=== PATIENT | female | born 1945 | race Caucasian/White ===

== ENCOUNTER 2020-06-14 12:14 | Outpatient (REF) | payer MEDICARE, SELFPAY ==
--- NOTE | 2020-06-14 12:21 | MM_ITS ---
EXAMINATION: MM DIAGNOSTIC DIGITAL BREAST TOMOSYNTHESIS, BILATERAL CLINICAL INFORMATION: Right lumpectomy for invasive ductal carcinoma 2017. Due for yearly. COMPARISON: Mammography: 01/26/2020, 09/16/2019, 10/13/2018, 06/10/2018, 06/17/2017, 03/30/2016, 02/16/2015, 12/25/2013 TECHNIQUE: Digital breast tomosynthesis is performed in both the craniocaudal and mediolateral oblique views along with computer-aided detection (CAD). Synthesized 2D images are generated from the tomosynthesis. FINDINGS: There are scattered areas of fibroglandular density (ACR BI-RADS breast composition Category b). Breast parenchymal pattern is similar to prior study. There are post therapy changes on right with reduced breast size and scarring and BioZorb device. The left breast again shows a heavily calcified nodule central breast mid depth consistent with degenerating fibroadenoma. Background stromal markings are similar to prior studies. Neither breast shows interval mass or architectural abnormality or abnormal calcifications. There is a pacemaker generator overlying the left axilla. No significant changes. Results are provided to the patient at time of visit by the technologist. IMPRESSION: No significant changes from prior study. ASSESSMENT: BI-RADS 2: Benign RECOMMENDATION: Annual bilateral mammography. This patient's information was entered into a reminder system with a target due date for their next mammogram.
== END 2020-06-14 12:15 | disposition home or self-care (01) ==
LOC: HO.MAMMO 12:14
PROVIDERS: PCP Internal Medicine; Visit Provider Internal Medicine
DX: Z85.3 Personal history of malignant neoplasm of breast (principal)
CPT/HCPCS: 77062; 77066; 77067; 78013

== ENCOUNTER → 2020-06-23 09:47 | Outpatient (BNVA) | payer MEDICARE, SELFPAY | PROVIDERS: PCP Internal Medicine; Visit Provider Surgery | DX: Z85.3 Personal history of malignant neoplasm of breast (principal); Z86.718 Personal history of other venous thrombosis and embolism; Z79.01 Long term (current) use of anticoagulants; Z92.21 Personal history of antineoplastic chemotherapy; Z92.3 Personal history of irradiation | CPT/HCPCS: 99214 ==

== ENCOUNTER → 2020-09-29 08:15 | Outpatient (BNV) | payer MEDICARE, SELFPAY | PROVIDERS: PCP Internal Medicine; Visit Provider Internal Medicine Medical Oncology | DX: M85.80 Other specified disorders of bone density and structure, unspecified site (principal); Z85.3 Personal history of malignant neoplasm of breast; Z92.3 Personal history of irradiation; Z92.21 Personal history of antineoplastic chemotherapy | CPT/HCPCS: 99212; 99213; 99214 ==

== ENCOUNTER 2020-11-15 14:15 | Outpatient (REF) | payer MEDICARE, SELFPAY ==
--- NOTE | ~2020-11-15 | MM_ITS ---
EXAMINATION: BONE DENSITOMETRY CLINICAL INDICATION: Osteopenia. COMPARISON: Previous BD dated 11/12/2017 and baseline BD dated 04/17/2007. TECHNIQUE: Using a [facility] DXA System (software version: 13.1) manufactured by [employer], dual-energy x-ray absorptiometry was performed of the lumbar spine and left hip. The images are of good technical quality. Summary results are attached. FINDINGS: AP SPINE L1-L4: Current: BMD 1.156 g/cm2, Z-score 1.1, T-score -0.2, normal, 2.7% increase from previous, 4.1% increase from baseline (<5% change is not significant). Prior: BMD 1.126 g/cm2. Baseline: BMD 1.110 g/cm2. LEFT FEMUR, NECK: Current: BMD 0.725 g/cm2, Z-score -0.6, T-score -2.2, osteopenia. Prior: BMD 0.708 g/cm2. Baseline: BMD 0.847 g/cm2. LEFT FEMUR, TOTAL: Current: BMD 0.755 g/cm2, Z-score -0.6, T-score -2.0, osteopenia, 1.5% increase from previous, 10.4% decrease from baseline (<5% change is not significant). Prior: BMD 0.744 g/cm2. Baseline: BMD 0.843 g/cm2. IDENTIFIED RISK FACTORS: Menopause, glucocorticoids (chronic), rheumatoid arthritis. HISTORY OF FRACTURE: Elbow (childhood trauma). MEDICATIONS: Vitamin D. MM/XR DEXA axial skeleton IMPRESSION: 1. DIAGNOSIS: Osteopenia based on the lowest T-score value of -2.2 in the femoral neck applying World Health Organization criteria. 2. 10-YEAR FRACTURE RISK PREDICTION, FRAX: Major osteoporotic fracture (clinical spine, forearm, hip or shoulder) 27.9%. Hip fracture 9.4%. 3. Treatment Recommendations: NOF guidelines recommend consideration for treatment in postmenopausal women and men age 50 and older presenting with the following: -A hip or vertebral (clinical or morphometric) fracture. -T-score less than or equal to -2.5 at the femoral neck or spine after appropriate evaluation to exclude secondary causes. -Low bone mass at the hip or spine and a 10-year fracture probability by FRAX of greater than or equal to 3% for hip fracture or greater than or equal to 20% for major osteoporotic fracture based on the [place] adapted WHO algorithm. 4. Other Recommendations: All treatment decisions require clinical judgment and consideration of individual patient factors, including patient preferences, comorbidities, previous drug use, risk factors not captured in the FRAX model (e.g. frailty, falls, vitamin D deficiency, increased bone turnover, interval significant decline in bone density) and possible under or overestimation of fracture risk by FRAX. Additional medical evaluation for secondary cause of low bone mineral density may be appropriate. FUTURE SCAN RECOMMENDATION: People with diagnosed cases of osteoporosis or at high risk for fracture should have regular bone mineral density tests. For patients eligible for Medicare, routine testing is allowed once every 2 years. The testing frequency can be increased to one year for patients who have rapidly progressing disease, those who are receiving or discontinuing medical therapy to restore bone mass, or have additional risk factors.
== END 2020-11-15 14:16 | disposition home or self-care (01) ==
LOC: HO.MAMMO 14:15
PROVIDERS: Visit Provider Internal Medicine
DX: Z13.820 Encounter for screening for osteoporosis (principal); M85.88 Other specified disorders of bone density and structure, other site; Z78.0 Asymptomatic menopausal state; Z79.899 Other long term (current) drug therapy; M06.9 Rheumatoid arthritis, unspecified
CPT/HCPCS: 77080

== ENCOUNTER → 2020-12-20 10:52 | Outpatient (BNVA) | payer MEDICARE, SELFPAY | PROVIDERS: PCP Internal Medicine; Visit Provider Surgery | DX: C50.919 Malignant neoplasm of unspecified site of unspecified female breast (principal) | CPT/HCPCS: 99212 ==

== ENCOUNTER 2020-12-28 09:18 | Outpatient (REF) | payer MEDICARE, SELFPAY ==
--- NOTE | ~2020-12-28 | MM_ITS ---
EXAMINATION: MM DIAGNOSTIC DIGITAL BREAST TOMOSYNTHESIS, RIGHT US DIAGNOSTIC ULTRASOUND BREAST, RIGHT CLINICAL INFORMATION: Palpable area of concern near lumpectomy scar upper outer right breast noted by patient with some recent erythema. Prior history right lumpectomy for invasive ductal cancer 2017. COMPARISON: Mammography: 06/14/2020, 01/26/2020, 09/16/2019, 06/12/2019, 06/10/2018 TECHNIQUE: Digital breast tomosynthesis is performed in both the craniocaudal and mediolateral oblique views along with computer-aided detection (CAD). Synthesized 2D images are generated from the tomosynthesis. Additional exaggerated right CC view is provided. Ultrasound right breast is targeted to the area of clinical concern mid to posterior upper outer quadrant. FINDINGS: There are scattered areas of fibroglandular density (ACR BI-RADS breast composition Category b). There are post therapy changes posterior upper outer right breast with BioZorb device and scarring right breast and right axilla. There is no interval mass or developing density. No abnormal calcifications. No significant changes. Ultrasound right breast demonstrates shadowing at the BioZorb site. There are 2 oil cysts in the area of palpable concern residing between the scar and lumpectomy site. The larger cyst measures 1.2 x 0.8 cm and adjacent smaller cyst measures 0.5 x 0.5 cm. There is no edema tracking in soft tissue planes. Prior ultrasound notes single small oil cyst in this area measuring approximately 0.7 x 0.5 cm. Results are discussed with the patient at time of visit. Patient notes follow-up appointment scheduled with her surgeon. Patient should be managed based on the clinical impression. MM/MM tomosynthesis diagnostic RT IMPRESSION: 1. Post therapy changes upper outer right breast similar to prior exams. 2. There are 2 oil cysts residing between the scar and the BioZorb device in the area of palpable concern, the larger 1.2 x 0.8 cm and adjacent smaller cyst 0.5 x 0.5 cm. ASSESSMENT: BI-RADS 2: Benign RECOMMENDATION: 1. Patient should be managed based on the clinical impression. Decision to proceed with biopsy should be based on clinical grounds and degree of clinical concern. 2. Otherwise, routine annual screening mammography. This patient's information was entered into a reminder system with a target due date for their next mammogram.
== END 2020-12-28 09:19 | disposition home or self-care (01) ==
LOC: HO.MAMMO 09:18
PROVIDERS: Visit Provider Surgery
DX: N63.11 Unspecified lump in the right breast, upper outer quadrant (principal); Z85.3 Personal history of malignant neoplasm of breast; Z98.890 Other specified postprocedural states
CPT/HCPCS: 76642; 77061; 77065

== ENCOUNTER → 2021-01-24 14:23 | Outpatient (BNVA) | payer MEDICARE, SELFPAY | PROVIDERS: PCP Internal Medicine; Visit Provider Surgery | DX: C50.919 Malignant neoplasm of unspecified site of unspecified female breast (principal) | CPT/HCPCS: 99212 ==

== ENCOUNTER 2021-06-19 08:48 | Outpatient (REF) | payer MEDICARE, SELFPAY ==
--- NOTE | ~2021-06-19 | MM_ITS ---
EXAMINATION: MM SCREENING DIGITAL BREAST TOMOSYNTHESIS, BILATERAL CLINICAL INFORMATION: Screening. Status post lumpectomy for IDC right breast, 07/12/2027. Due for yearly. COMPARISON: Mammography: 12/28/2020, 06/14/2020, 01/26/2020, 09/16/2019, 06/12/2019, 06/10/2018, 06/17/2017. TECHNIQUE: Digital breast tomosynthesis is performed in both the craniocaudal and mediolateral oblique views along with computer-aided detection (CAD). Synthesized 2D images are generated from the tomosynthesis. FINDINGS: There are scattered areas of fibroglandular density (ACR BI-RADS breast composition Category b). There are no significant changes from prior study. The right breast post therapy changes with reduced breast size and BioZorb device at the lumpectomy site of area 11:00 position. The left breast has a degenerating fibroadenoma central aspect mid depth with diffuse coarsening popcorn calcification. Neither breast shows interval mass or architectural abnormality or abnormal calcifications. The axilla are unremarkable. MM/MM tomosynthesis screening BI IMPRESSION: No mammographic evidence of malignancy. Post therapy changes right breast. The ASSESSMENT: BI-RADS 2: Benign RECOMMENDATION: Routine annual mammography screening. This patient's information was entered into a reminder system with a target due date for their next mammogram.
== END 2021-06-19 08:49 | disposition home or self-care (01) ==
LOC: HO.MAMMO 08:48
PROVIDERS: Visit Provider Internal Medicine
DX: Z12.31 Encounter for screening mammogram for malignant neoplasm of breast (principal)
CPT/HCPCS: 77063; 77067

== ENCOUNTER → 2021-08-22 15:24 | Outpatient (BNVA) | payer MEDICARE, SELFPAY | PROVIDERS: PCP Internal Medicine; Referring Provider Internal Medicine; Visit Provider Surgery | DX: C50.919 Malignant neoplasm of unspecified site of unspecified female breast (principal) | CPT/HCPCS: 99212 ==

== ENCOUNTER → 2022-02-20 09:40 | Outpatient (BNVA) | payer MEDICARE, SELFPAY | PROVIDERS: PCP Internal Medicine; Visit Provider Surgery | DX: N63.11 Unspecified lump in the right breast, upper outer quadrant (principal); Z85.3 Personal history of malignant neoplasm of breast | CPT/HCPCS: 99212 ==

== ENCOUNTER 2022-02-21 09:55 | Outpatient (REF) | payer MEDICARE, SELFPAY ==
--- NOTE | ~2022-02-21 | MM_ITS ---
EXAMINATION: MM DIAGNOSTIC DIGITAL BREAST TOMOSYNTHESIS, RIGHT US DIAGNOSTIC ULTRASOUND BREAST, RIGHT CLINICAL INFORMATION: Small pea-sized palpable area medial side lumpectomy scar noted by patient. Lumpectomy 07/12/2017 (invasive carcinoma with ductal and lobular features, margins clear). COMPARISON: Mammography: 06/19/2021, 12/28/2020, 06/14/2020, 01/26/2020, 09/16/2019, 06/12/2019, 06-26, 07/01/2017, 06/17/2017 TECHNIQUE: Digital breast tomosynthesis is performed in both the craniocaudal and mediolateral oblique views along with computer-aided detection (CAD). Synthesized 2D images are generated from the tomosynthesis. Additional views are obtained: Right CC, exaggerated right CC, ML. Ultrasound right breast is targeted to the area of clinical concern noted by the patient. Additional imaging of the deeper breast to the chest wall is interrogated from all 4 quadrants. Grayscale imaging and color Doppler are performed without and with harmonics. FINDINGS: There are scattered areas of fibroglandular density (ACR BI-RADS breast composition Category b). There are post therapy changes with reduced breast size, old scarring, and BioZorb device. There are some benign dystrophic calcifications around the BioZorb device. There is no interval mass, developing density, architectural abnormality, or abnormal calcifications. There is some superficial retraction of the skin contours overlying the lumpectomy site but without skin thickening or coarsening of the Elder's ligaments. Additional views show no interval architectural changes deep to the lumpectomy site. There is no mammographic correlate for patient's symptoms. Ultrasound demonstrates expected focal shadowing at the site of prior lumpectomy and scarring. There is no cystic or solid mass or architectural abnormality to correspond to patient's symptoms. Additional imaging around the breast to the chest wall is unremarkable. Results are discussed with the patient at time of visit. Results also discussed with Dr. Weathers on 02/21/2022. MM/MM tomosynthesis diagnostic RT IMPRESSION: -Post therapy changes right breast. -No imaging correlate for patient's palpable concern. ASSESSMENT: BI-RADS 2: Benign RECOMMENDATION: 1. Patient should be managed based on the clinical impression. Decision to proceed with biopsy should be based on clinical grounds and degree of clinical concern. 2. Otherwise, routine annual screening mammography. This patient's information was entered into a reminder system with a target due date for their next mammogram.
== END 2022-02-21 09:56 | disposition home or self-care (01) ==
LOC: HO.MAMMO 09:55
PROVIDERS: Visit Provider Surgery
DX: N63.11 Unspecified lump in the right breast, upper outer quadrant (principal); C50.911 Malignant neoplasm of unspecified site of right female breast
CPT/HCPCS: 76642; 77061; 77065

== ENCOUNTER 2022-02-28 07:39 | Outpatient (REF) | payer MEDICARE, SELFPAY ==
--- NOTE | ~2022-02-28 | CT_ITS ---
EXAMINATION: CT CHEST WITHOUT CONTRAST CLINICAL INFORMATION: Breast cancer COMPARISON: None TECHNIQUE: Multidetector volumetric CT imaging of the chest was done. Axial MIP volume rendering provided. Sagittal and coronal reformatted images were obtained. This CT examination was performed using dose optimization techniques as appropriate, variously including the following: *Automated exposure control *Adjustment of mA and/or kV according to patient size (this includes techniques or standardized protocols for targeted exams where dose is matched to indication/reason for exam; i.e. extremities or head) *Use of iterative reconstruction technique DLP: 147 mGy-cm FINDINGS: DISTANCE LEARNING TECHNICIAN: Left subclavian dual chamber pacemaker LUNGS: There is evidence of emphysema. There is pleural thickening and increased interstitial markings seen in the anterior right upper and right middle lobes probably representing changes from previous chest wall radiation. There is a 2 x 1.3 cm peripheral or subpleural nodule in the right middle lobe in this region inferiorly. It is uncertain whether this is related to pleural and parenchymal scarring from radiation or could represent pulmonary nodule. There is evidence of mild airways disease in the right middle lobe with increased peribronchial attenuation. There is a 4 mm semisolid right middle lobe nodule axial image 276 series 7. MEDIASTINUM: There are small mediastinal lymph nodes. Largest lymph nodes are a right precarinal lymph node and subcarinal lymph node that are upper normal in size measuring 1 cm in short axis. The heart does not appear enlarged. There is a left subclavian dual chamber pacemaker. There is a tiny pericardial effusion. There is mild coronary artery calcification. The thoracic aorta is normal in caliber. PLEURA: There is pleural thickening adjacent to the anterior right upper and right middle lobe again probably related to changes from previous chest wall radiation. AXILLA: There are no enlarged axillary lymph nodes. There are surgical clips in the right breast. There is a 2.5 cm lesion in the right breast surrounding the surgical clips with fatty center likely representing postsurgical change. There is some thickening and asymmetry of the right pectoral muscles compared to the left. No discrete chest wall mass is appreciated. UPPER ABDOMEN: Unremarkable. OSSEOUS STRUCTURES: There are degenerative changes of the spine. No fracture or bone lesion is seen. CT/CT chest wo con IMPRESSION: Mild emphysema. Pleural thickening and increased interstitial markings the anterior right upper and right middle lobes probably representing changes from previous chest wall radiation. 2 x 1.3 cm peripheral or subpleural right middle lobe nodule just inferior to this region. It is uncertain whether this is related to scarring related to chest wall radiation or could represent a true pulmonary nodule. Mild airways disease in the right middle lobe and 4 mm more central separate semisolid nodule. Chest CT follow-up recommended. Postsurgical changes to the right breast. Mild coronary artery calcification and left subclavian dual chamber pacemaker. Fleischner guidelines were followed.
== END 2022-02-28 07:40 | disposition home or self-care (01) ==
LOC: HO.CT 07:39
PROVIDERS: PCP Internal Medicine; Visit Provider Surgery
DX: N63.10 Unspecified lump in the right breast, unspecified quadrant (principal); Z98.890 Other specified postprocedural states; Z85.3 Personal history of malignant neoplasm of breast
CPT/HCPCS: 71250

== ENCOUNTER → 2022-03-13 09:53 | Outpatient (BNVA) | payer MEDICARE, SELFPAY | PROVIDERS: PCP Internal Medicine; Visit Provider Internal Medicine Pulmonary Disease | DX: J44.9 Chronic obstructive pulmonary disease, unspecified (principal); R22.2 Localized swelling, mass and lump, trunk; Z87.891 Personal history of nicotine dependence | CPT/HCPCS: 99202 ==

== ENCOUNTER 2022-03-19 15:42 | Outpatient (REF) | payer MEDICARE, SELFPAY ==
--- NOTE | 2022-03-19 17:00 | PFT_ITS ---
Forced vital capacity 90%, FEV1 is 79%, FEV1/FVC ratio is 66. [id number] is 47% and MVV is 71%. Bronchodilator therapy, no response noted. Total lung capacity 87%. Residual volume 83%. Diffusion capacity 46%. CONCLUSION: Obstructive airway disorder, moderately severe, without any response to bronchodilator therapy. Clinical correlation is recommended. MD ANNALEE Villagomez/[facility]él[facility] / [id number]
== END 2022-03-19 15:43 | disposition home or self-care (01) ==
LOC: HO.RESP 15:42
PROVIDERS: PCP Internal Medicine; Visit Provider Internal Medicine Pulmonary Disease
DX: J44.9 Chronic obstructive pulmonary disease, unspecified (principal); R22.2 Localized swelling, mass and lump, trunk; C50.911 Malignant neoplasm of unspecified site of right female breast; T45.1X5A Adverse effect of antineoplastic and immunosuppressive drugs, initial encounter; Z87.891 Personal history of nicotine dependence
CPT/HCPCS: 94060; 94727; 94729

== ENCOUNTER 2022-03-27 13:00 | Outpatient (REF) | payer MEDICARE, SELFPAY ==
--- NOTE | ~2022-03-27 | PE_ITS ---
EXAMINATION: Fluorine-18 FDG PET/CT Scan CLINICAL INDICATION: Initial treatment management. 2.0 cm maximum dimension right middle lobe subpleural nodule, seen on recent CT of the chest done on 02/28/2022. History of right-sided breast cancer, status post lumpectomy in 2017. PROCEDURE: 67 minutes following the intravenous administration of 14.2 mCi of fluorine 18 FDG, images from the base of the skull to the mid thighs were obtained using a combined PET/CT scanner with CT scan based attenuation correction. No intravenous contrast was administered. Transverse, coronal, sagittal, and volume reconstruction projections were obtained. The patient's blood glucose as determined by a finger stick, was 102 mg/dl immediately prior to injection. The radiotracer was injected through the left hand superficial vein, without any complication. Total CT exam dose-length product 784.03 mGy-cm * These CT images were obtained using dose optimization techniques as appropriate, variously including the following: Automated exposure control * Adjustment of mA and/or kV according to patient size (this includes techniques or standardized protocols for targeted exams where dose is matched to indication/reason for exam; i.e. extremities or head) * Use of iterative reconstruction technique COMPARISON: CT of the chest done on 02/28/2022. Diagnostic right breast mammogram and targeted right breast ultrasound done on 02/21/2022. FINDINGS: NECK AND VISUALIZED HEAD: Mild symmetric increased radiotracer activities are noted at the level of the laryngeal inlet likely represent physiologic changes (55/267). THORAX: The index 2 cm subpleural right middle lobe lung nodule is not FDG avid. Underlying emphysematous disease predominantly involving both upper lobes and presumed posttreatment radiation fibrosis related changes are noted within the right middle lobe. There are no metabolically active mediastinal and/or hilar lymphadenopathy present. The right breast shows expected posttreatment changes, concordant with prior diagnostic right breast mammogram and ultrasound done on 02/21/2022. ABDOMEN AND PELVIS: No metabolically active disease is present. Physiologic radiotracer uptake is present within the kidneys, bladder and the bowel loops. Colonic diverticulosis related changes are noted within the large bowel without any CT features of superimposed acute diverticulitis. MUSCULOSKELETAL: Bilateral symmetric increased radiotracer distribution is noted within both upper extremities as well as posterior right upper hemithorax, most consistent with physiologic changes. VASCULAR: Atherosclerotic disease of the aorta and is branches without aneurysm formation. PET/PET CT fusion skull to thigh IMPRESSION: 1. The index 2 cm subpleural right middle lobe lung nodule is not FDG avid, may represent postradiation fibrosis. Please note that some primary lung malignancies such as adenocarcinoma in situ, minimally invasive adenocarcinoma, well-differentiated adenocarcinoma, and low-grade carcinoids may not be FDG avid. There are no metabolically active mediastinal and/or hilar lymphadenopathy or metabolically active disease within the abdomen and pelvis. 2. Mild symmetric increased radiotracer activities are noted at the level of the laryngeal inlet likely represent physiologic changes. 3. Colonic diverticulosis without any CT features of superimposed acute diverticulitis and expected posttreatment changes within the right breast and adjacent underlying right middle lobe of the lung.
== END 2022-03-27 13:01 | disposition home or self-care (01) ==
LOC: HO.PET 13:00
PROVIDERS: PCP Internal Medicine; Visit Provider Internal Medicine Pulmonary Disease
DX: Z13.89 Encounter for screening for other disorder (principal)

== ENCOUNTER → 2022-03-28 13:22 | Outpatient (BNVA) | payer MEDICARE, SELFPAY | PROVIDERS: PCP Internal Medicine; Visit Provider Internal Medicine Pulmonary Disease | DX: R22.2 Localized swelling, mass and lump, trunk (principal); J44.9 Chronic obstructive pulmonary disease, unspecified; Z87.891 Personal history of nicotine dependence | CPT/HCPCS: 99212 ==

== ENCOUNTER → 2022-06-01 10:28 | Outpatient (BNVA) | payer MEDICARE, SELFPAY | PROVIDERS: PCP Internal Medicine; Visit Provider Surgery | DX: R91.1 Solitary pulmonary nodule (principal) | CPT/HCPCS: 99202 ==

== ENCOUNTER 2022-06-25 08:53 | Outpatient (REF) | payer MEDICARE, SELFPAY ==
--- NOTE | ~2022-06-25 | MM_ITS ---
EXAMINATION: MM SCREENING DIGITAL BREAST TOMOSYNTHESIS, BILATERAL CLINICAL INFORMATION: Due for yearly. Prior right IC with ductal and lobular features, post lumpectomy 2017. COMPARISON: Mammography: 02/21/2022, 06/19/2021, 12/28/2020, 06/14/2020, 01/26/2020, 09/16/2019, 06/12/2019. TECHNIQUE: Digital breast tomosynthesis is performed in both the craniocaudal and mediolateral oblique views along with computer-aided detection (CAD). Synthesized 2D images are generated from the tomosynthesis. Additional exaggerated right CC view is provided. FINDINGS: There are scattered areas of fibroglandular density (ACR BI-RADS breast composition Category b). Post therapy changes are again noted on right with reduced breast size, scarring, and BioZorb device. Left breast has stable heavily calcified nodule consistent with degenerating fibroadenoma. Breast shows interval mass or architectural abnormality or abnormal calcifications. No significant changes from prior studies. MM/MM tomosynthesis screening BI IMPRESSION: -No mammographic evidence of malignancy. -Post therapy changes right breast. ASSESSMENT: BI-RADS 2: Benign RECOMMENDATION: Routine annual mammography screening. This patient's information was entered into a reminder system with a target due date for their next mammogram.
== END 2022-06-25 08:54 | disposition home or self-care (01) ==
LOC: HO.MAMMO 08:53
PROVIDERS: PCP Internal Medicine; Visit Provider Internal Medicine
DX: Z12.31 Encounter for screening mammogram for malignant neoplasm of breast (principal)
CPT/HCPCS: 77063; 77067

== ENCOUNTER → 2022-07-06 10:57 | Outpatient (BNVA) | payer MEDICARE, SELFPAY | PROVIDERS: PCP Internal Medicine; Visit Provider Internal Medicine Pulmonary Disease | DX: J44.9 Chronic obstructive pulmonary disease, unspecified (principal); R91.1 Solitary pulmonary nodule | CPT/HCPCS: 99212 ==

== ENCOUNTER → 2022-08-23 08:54 | Outpatient (BNVA) | payer MEDICARE, SELFPAY | PROVIDERS: PCP Internal Medicine; Referring Provider Internal Medicine; Visit Provider Surgery | DX: Z85.3 Personal history of malignant neoplasm of breast (principal); Z92.21 Personal history of antineoplastic chemotherapy | CPT/HCPCS: 99212 ==

== ENCOUNTER → 2022-11-13 14:09 | Outpatient (BNVA) | payer MEDICARE, SELFPAY | PROVIDERS: PCP Internal Medicine; Visit Provider Internal Medicine Pulmonary Disease | DX: J44.9 Chronic obstructive pulmonary disease, unspecified (principal); R91.1 Solitary pulmonary nodule | CPT/HCPCS: 99212 ==

== ENCOUNTER 2023-04-16 21:00 | Emergency (ER) | payer MEDICARE, SELFPAY ==
[2023-04-16 21:12] VITALS: BP 156/80; PULSE 85; RESP 18; TEMP 36.5; O2SAT 93; BMI 28.6
[2023-04-16] MEDS: Ondansetron ODT 4 MG TAB.RAPDIS TRANSLINGU (23:09)
[2023-04-16] MEDS: Doxycycline Monohydrate 100 MG CAPSULE 200 MG PO (23:09)
--- NOTE | 2023-04-16 23:11 | ED_ITS ---
HPI - Animal Bite General Chief Complaint: Skin/Abscess/Foreign Body Stated Complaint: Tick on head Time Seen by Provider: 04/16/23 22:21 Source: patient and family Mode of arrival: ambulatory Limitations: no limitations History of Present Illness MD complaint: other (tick bite) Onset (ago): hour(s) (24) Animal: other Mechanism: bite Location: head Context: other (found on scalp) Associated symptoms: none Treatments prior to arrival: other (tried to remove it partially ) Related Data Home Medications Medication Instructions Recorded Confirmed amlodipine 5 mg tablet 5 mg PO DAILY 06/23/20 10/19/22 metoprolol succinate 50 mg 50 mg PO DAILY 06/23/20 10/19/22 tablet,extended release 24 hr pantoprazole 40 mg tablet,delayed 40 mg PO DAILY 06/23/20 10/19/22 release tramadol 50 mg tablet 50 mg PO DAILY 06/23/20 10/19/22 warfarin 5 mg tablet 5 mg PO DAILY 06/23/20 10/19/22 acetaminophen 500 mg capsule 500 mg PO Q6H PRN Pain 09/29/20 10/19/22 cholecalciferol (vitamin D3) 50 50 mcg PO DAILY 09/29/20 10/19/22 mcg (2,000 unit) capsule (Vitamin D3) sucralfate 1 gram tablet 1 tab PO TID 09/29/20 10/19/22 rosuvastatin 20 mg tablet 10 mg PO BEDTIME 06/01/22 10/19/22 Previous Rx's Medication Instructions Recorded ondansetron 4 mg disintegrating 4 mg PO Q8H PRN nausea and 04/16/23 tablet vomiting #20 tabs Allergies Allergy/AdvReac Type Severity Reaction Status Date / Time Tetanus Vaccines and Toxoid Allergy Mild SWELLING Verified 04/16/23 21:16 [TETANUS VACCINES & TOXOID] influenza virus vaccine, Allergy Unknown SWELLING, Verified 04/16/23 21:16 specific MUSCLE [FLU VACCINE] ACHING clopidogrel [From Plavix] Allergy Unknown Verified 04/16/23 21:16 ibuprofen [From Motrin] Allergy Vomiting Verified 04/16/23 21:16 dexlansoprazole AdvReac Unknown PT HEARS Verified 04/16/23 21:16 [DEXLANSOPRAZOLE] HEART BEAT IN EARS FLU Vaccine Allergy Mild Muscle Pain Uncoded 10/19/22 13:37 Tetanus, diptheria, toxoids Allergy Mild Swelling Uncoded 10/19/22 13:37 Doxycycline AdvReac Unknown nausea and Uncoded 10/19/22 13:37 vomiting Review of Systems Review of Systems: Constitutional : No Fever, No Chills, Cardiovascular : No Chest Pain, No SOB Respiratory : No Dyspnea Gastrointestinal : No abdominal pain Musculoskeletal : No Joint Swelling Skin : No rash, positive skin lesion Neuro : No Weakness, No Numbness PMFSH Past Medical History Attestation statement: The following information was validated with the patient. Medical History History of DVT of lower extremity History of gastric ulcer History of right breast cancer (~2017) Personal history of nicotine dependence Surgical History History of cardiac radiofrequency ablation History of intravascular stent placement History of lumpectomy of right breast History of lung surgery (07/31/22) History of lymph node excision Family History Family History Father Melanoma Mother Ovarian cancer, Onset Age: 48 Lung cancer Brother Throat cancer Lung cancer Lymphoma Social History Social History Household Members: Spouse Housing: House Are you a primary daycare director to a significant other at home: No Do you presently have visiting nurse or other home services: No Alcohol intake: former Patient Tobacco Use Status: Never used Tobacco Advance Directives: No Advance Directives Information Provided: No Advance Directives Date on File: 06/14/20 service: No Current occupational status: retired 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 Oriented X3. No acute distress. Eyes: Pupils equal, round and reactive to light. ENT: Pharynx normal. L scalp small hard stick felt but no discrete object felt possibly removed did well no signs of infection or bleeding dog tick brought in Neck: Normal inspection. CVS: Normal heart rate and rhythm. Respiratory: No respiratory distress. Abdomen: Soft and nontender. Skin: Skin warm and dry. Normal skin color. Extremities: No lower extremity edema. Neuro: Oriented X 3. No motor deficit. No sensory deficit. Medications Administered Discontinued Medications Generic Name Dose Route Start Last Admin Trade Name Jan PRN Reason Stop Dose Admin Doxycycline Monohydrate 200 mg 04/16/23 22:57 04/16/23 23:09 Doxycycline Monohydrate 100 Mg Capsule PO 04/16/23 22:58 200 mg ONCE ONE Administration Ondansetron HCl 4 mg 04/16/23 23:06 04/16/23 23:09 Ondansetron Odt 4 Mg Tab.Rapdis TRANSLINGU 04/16/23 23:07 4 mg ONCE ONE Administration Medical Decision Making Medical Decision Making MDM Narrative: 77 yo female with hx of HLD, GERD anticoagulated on coumadin s/p tick bite L scalp removed most of dog tick possible pincer remains thinks tick was there for 24 hours no bleeding or signs of infection at this time will try to remove though may just let it come out on its own and start on PO doxy 200mg proph - zofran Rx given reaction in past. no other complaints, not toxic. Differential Diagnosis Differential Diagnoses: The differential diagnosis associated with the presentation includes tick bite, lyme exposure, retained FB Independent Historian Clinical information obtained from an independent historian. History obtained from or confirmed by: Spouse External Record Review External record reviewed: Office record Prescription Management I considered prescription management with: Antibiotic and Other zofran Procedures Procedure Narrative Procedure Narrative: alcohol prep verbal consent attempted to remove with sterile tweezers and 18G removed some of pincer but not all no bleeding tolerated well Discharge Plan Discharge Clinical Impression: Tick bite Qualifiers: Encounter type: initial encounter Site of tick bite: head Laterality: left Patient Disposition: Home, Self-Care Instructions: Tick Bite (ED) Additional Instructions: return for redness, swelling yellow drainage or signs of infection. there may be a small piece of pincer left over though unsure - this will likely come out on its own monitor for infection given prophylactic dose of doxy for lyme disease Prescriptions: New ondansetron 4 mg tablet,disintegrating 4 mg PO Q8H PRN (Reason: nausea and vomiting) Qty: 20 0RF No Action sucralfate 1 gram tablet 1 tab PO TID acetaminophen [Tylenol Extra Strength] 500 mg Capsule 500 mg PO Q6H PRN (Reason: Pain) cholecalciferol (vitamin D3) [Vitamin D3] 50 mcg (2,000 unit) Capsule 50 mcg PO DAILY amlodipine 5 mg tablet 5 mg PO DAILY warfarin 5 mg tablet 5 mg PO DAILY pantoprazole 40 mg tablet,delayed release (DR/EC) 40 mg PO DAILY metoprolol succinate 50 mg tablet extended release 24 hr 50 mg PO DAILY tramadol 50 mg tablet 50 mg PO DAILY rosuvastatin 20 mg tablet 10 mg PO BEDTIME
--- NOTE | 2023-04-16 23:11 | PC.NURSE ---
pt medicated per MAR , pt given zofran prophylactically for n/v
== END 2023-04-16 23:18 | disposition home or self-care (01) ==
PROVIDERS: Emergency Provider Emergency Medicine; PCP Internal Medicine
DX: T63.481A Toxic effect of venom of other arthropod, accidental (unintentional), initial encounter (principal); L92.3 Foreign body granuloma of the skin and subcutaneous tissue; Y92.9 Unspecified place or not applicable
CPT/HCPCS: 99282; 99283

== ENCOUNTER 2023-06-26 08:55 | Outpatient (REF) | payer MEDICARE, SELFPAY ==
--- NOTE | ~2023-06-26 | MM_ITS ---
EXAMINATION: MM SCREENING DIGITAL BREAST TOMOSYNTHESIS, BILATERAL CLINICAL INFORMATION: Screening. Asymptomatic. The patient is status post right breast cancer treatment in 2017. COMPARISON: Mammography: This study is compared with prior exams dating back to 2018. Additional imaging TECHNIQUE: Digital breast tomosynthesis is performed in both the craniocaudal and mediolateral oblique views along with computer-aided detection (CAD). Synthesized 2D images are generated from the tomosynthesis. FINDINGS: There are scattered areas of fibroglandular density (ACR BI-RADS breast composition Category b). In the upper outer quadrant of the left breast, just lateral to the posterior nipple line, there is an asymmetry which warrants additional mammographic imaging. Rolled CC view should be added to the imaging protocol for this patient. There is coarse, benign calcification in a small oval mass of the central portion of the left breast. This is senior human resources representative of an involuting fibroadenoma. There is a pacemaker the superior aspect of the left side of the chest. Thre are postsurgical changes with a a BioZorb marker and benign dystrophic calcifications in the upper-outer quadrant of the right breast from prior breast cancer treatment. MM/MM tomosynthesis screening BI IMPRESSION: Asymmetry of the right breast warrants additional mammographic imaging. Rolled CC view should be added to the imaging protocol for this patient. Targeted sonography is at the discretion of the diagnostic radiologist. No mammographic signs of malignancy right breast. Post surgical changes right breast present. ASSESSMENT: BI-RADS BI-RADS 0 - Incomplete: Needs additional Imaging. RECOMMENDATION: 1. Additional views of the left breast 2. Targeted ultrasound if warranted after review of the additional views. 3. Radiology department staff will contact the patient for additional imaging. Additional Imaging required This examination should not preclude the clinical evaluation of a suspicious palpable abnormality. This patient's information was entered into a reminder system with a target due date for their next mammogram.
== END 2023-06-26 08:56 | disposition home or self-care (01) ==
LOC: HO.MAMMO 08:55
PROVIDERS: PCP Internal Medicine; Visit Provider Internal Medicine
DX: Z12.31 Encounter for screening mammogram for malignant neoplasm of breast (principal)
CPT/HCPCS: 77063; 77067

== ENCOUNTER → 2023-06-26 09:15 | Outpatient (BNV) | payer MEDICARE, SELFPAY | PROVIDERS: PCP Internal Medicine; Visit Provider Radiology Diagnostic Radiology | DX: Z12.31 Encounter for screening mammogram for malignant neoplasm of breast (principal) | CPT/HCPCS: 77063; 77067 ==

== ENCOUNTER 2023-07-23 08:22 | Outpatient (REF) | payer MEDICARE, SELFPAY ==
--- NOTE | ~2023-07-23 | MM_ITS ---
EXAMINATION: MM DIAGNOSTIC DIGITAL BREAST TOMOSYNTHESIS, RIGHT CLINICAL INFORMATION: The patient is seen for further evaluation of an asymmetry in the upper outer quadrant of the left breast is noted on screening mammography from 06/26/2023. COMPARISON: Mammography: This study is compared with prior mammograms dating back to 2019. TECHNIQUE: Digital breast tomosynthesis is performed. 2D images are generated from the tomosynthesis. The following views are obtained: Additional mammographic imaging includes rolled CC views, a full lateral view and CC spot compression of the left breast. FINDINGS: There are scattered areas of fibroglandular density (ACR BI-RADS breast composition Category b). There are no mammographic signs of malignancy in the left breast. The additional imaging performed today shows overlap of normal soft tissues. There is a coarse benign calcification present in the central portion of the left breast. MM/MM tomosynthesis added views L IMPRESSION: No mammographic signs of malignancy. ASSESSMENT: BI-RADS BI-RADS 2 - Benign Findings RECOMMENDATION: 1 year F/U Results were provided to the patient at time of visit by the technologist. This patient's information was entered into a reminder system with a target due date for their next mammogram.
== END 2023-07-23 08:23 | disposition home or self-care (01) ==
LOC: HO.MAMMO 08:22
PROVIDERS: PCP Internal Medicine; Visit Provider Internal Medicine
DX: N64.89 Other specified disorders of breast (principal)
CPT/HCPCS: 77061; 77065

== ENCOUNTER → 2023-07-23 09:00 | Outpatient (BNV) | payer MEDICARE, SELFPAY | PROVIDERS: PCP Internal Medicine; Visit Provider Radiology Diagnostic Radiology | DX: N64.89 Other specified disorders of breast (principal) | CPT/HCPCS: 77061; 77065; G0279 ==

== ENCOUNTER 2023-09-12 09:49 | Outpatient (AMB) | payer MEDICARE, SELFPAY ==
--- NOTE | 2023-09-12 10:02 | MHC.OFFVIS ---
Intake Vital Signs 09/12/23 10:13 Height 5 ft 5 in BP 187/74 H Blood Pressure Location Lt brachial Position Sitting Pulse 101 H Intake Visit Reasons: Yearly Breast Exam Intake Note: Patient is seen in office for yearly breast exam. Pt c/o: denies any concerns regarding the breast mm:07/23/23 (sched:07/01/24) Misael:10/24/23 Associate Required: No Vacuum Extractor Operator: Vacuum Extractor Operator Present Accompanied by: Self / Same As Patient Allergies Tetanus Vaccines and Toxoid [TETANUS VACCINES & TOXOID] Allergy (Mild, Verified 09/12/23 10:18) SWELLING influenza virus vaccine, specific [FLU VACCINE] Allergy (Unknown, Verified 09/12/23 10:18) SWELLING, MUSCLE ACHING clopidogrel [From Plavix] Allergy (Verified 09/12/23 10:18) Unknown ibuprofen [From Motrin] Allergy (Verified 09/12/23 10:18) Vomiting dexlansoprazole [DEXLANSOPRAZOLE] Adverse Reaction (Unknown, Verified 09/12/23 10:18) PT HEARS HEART BEAT IN EARS FLU Vaccine Allergy (Mild, Uncoded 09/12/23 10:18) Muscle Pain Tetanus, diptheria, toxoids Allergy (Mild, Uncoded 09/12/23 10:18) Swelling Doxycycline Adverse Reaction (Unknown, Uncoded 09/12/23 10:18) nausea and vomiting HPI HPI Comments History of Present Illness Details 77-year-old female patient, former patient of Dr. Pickett and Dr. Garay with a prior history of right breast cancer returning today for an annual breast examination.? She underwent a right breast lumpectomy with placement of BioZorb and right axillary sentinel node biopsy on 07/12/2017.? Pathology revealed a 1.5 cm grade 3 invasive ductal carcinoma ER/OH positive, HER2 Bruna negative.? Two right axillary sentinel nodes were benign.? Oncotype DX was 19 corresponding to a 12% risk of recurrence at 10 years with tamoxifen alone.? She completed 4 cycles of AC chemotherapy on 08/22/2020 (Dr. Douglas).? She subsequently underwent radiation therapy [facility] (Dr.? Clark).? She is currently not taking any antiestrogen therapy because of her fear of the side effects.? Genetic testing with my risk is negative for deleterious mutations and variance of uncertain significance. She continues to reports some fullness/thickening in the medial portion of her right breast incision. Her last mammogram dated of 07/23/2023 revealed no mammographic evidence of malignancy (BI-RADS 2). Routine annual mammography screening was recommended in 1 year. [facility] Medical History Personal history of nicotine dependence History of right breast cancer (~2017) History of gastric ulcer History of DVT of lower extremity Surgical History History of lung surgery (07/31/22) History of intravascular stent placement History of cardiac radiofrequency ablation History of lymph node excision History of lumpectomy of right breast Family History Father Melanoma Mother Ovarian cancer, Onset Age: 48 Lung cancer Brother Throat cancer Lung cancer Lymphoma Social History Household Members: Spouse Housing: House Are you a primary youth care professional to a significant other at home: No Do you presently have visiting nurse or other home services: No Alcohol intake: former Patient Tobacco Use Status: Never used Tobacco Advance Directives Date on File: 06/14/20 service: No Current occupational status: retired 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 Review of Systems Const All systems reviewed & are unremarkable except as noted in HPI and below Denies chills, Denies fever(s) and Denies night sweats Resp Denies change in phlegm color, Denies cough, Denies hemoptysis and Denies wheezing GI Denies abdominal pain, Denies hematochezia, Denies constipation, Denies heartburn and Denies diarrhea Denies nipple discharge Skin/Breast Reports breast swelling, Reports breast skin changes, Denies breast pain, Reports breast mass and Denies nipple discharge Aller/Immun Denies wheezing Physical Exam Vital Signs: Last Vital Signs Pulse 101 H 09/12/23 10:13 BP 187/74 H 09/12/23 10:13 Const General: cooperative, healthy appearing, comfortable, no acute distress, well developed, alert and awake Neck Neck: Yes normal visual inspection, Yes full ROM, Yes no lymphadenopathy, Yes trachea midline and Yes supple Chest Other: Right breast: Transverse incision with scar retraction located in the upper outer quadrant of the right breast. A palpable masses noted in the medial incision which extends beyond the incision, measuring approximately 2 cm. No ulceration or bleeding is identified. Skin thickening noted in the medial incision is well. No change from prior examination. No enlarged lymph nodes are palpable. No other palpable masses are appreciated. Left breast: No skin changes, no nipple discharge, no palpable mass, no tenderness, no enlarged lymph nodes. Chest/axillae images: 1. Scar at upper outer quadrant with retraction Resp Effort & Inspection: normal respiratory effort, no stridor and not tachypneic Auscultation: no wheezes Cardio Jugular venous distension: no JVD GI Inspection: Yes normal to inspection Skin General skin exam: no rashes or lesions noted Extrem General: Yes no clubbing, cyanosis or edema Assessment & Plan Assessment & Plan (1) Invasive ductal carcinoma of breast, stage 1: Onset Date: ~2016 Comment: ([facility] - ER/OH pos, HER-2/bruna neg - dx 2016) Code(s): C50.919 - Malignant neoplasm of unspecified site of unspecified female breast Qualifiers: Laterality: right Qualified Code(s): C50.911 - Malignant neoplasm of unspecified site of right female breast (2) Breast mass, right: Code(s): N63.10 - Unspecified lump in the right breast, unspecified quadrant Qualifiers: Breast mass location: upper outer quadrant Qualified Code(s): N63.11 - Unspecified lump in the right breast, upper outer quadrant Plan 77-year-old female patient returning for follow-up breast examination following right breast lumpectomy and sentinel node biopsy in 2016. Examination today reveals chronic scarring in the right breast from the previous surgery and radiation therapy. No new suspicious findings are noted. The left breast is normal as well. Her most recent mammogram of 07/23/2023 reveals no mammographic evidence of malignancy (BI-RADS 2). She will undergo her regular annual mammogram in June 2024. She should return in 1 year for follow-up examination, sooner p.r.n.. Coding Level of Care Code Est Pt Level 3 (02631) Diagnoses Infiltrating ductal carcinoma of right breast, stage 1 C50.911 Laterality: right Mass of upper outer quadrant of right breast N63.11 Breast mass location: upper outer quadrant
[2023-09-12 10:13] VITALS: BP 187/74; PULSE 101
== END 2023-09-12 10:22 | disposition home or self-care (01) ==
PROVIDERS: PCP Internal Medicine; Visit Provider Surgery
DX: C50.911 Malignant neoplasm of unspecified site of right female breast (principal)
CPT/HCPCS: 99213

== ENCOUNTER → 2023-09-12 09:49 | Outpatient (BNVA) | payer MEDICARE, SELFPAY | PROVIDERS: PCP Internal Medicine; Visit Provider Surgery | DX: N63.11 Unspecified lump in the right breast, upper outer quadrant (principal); C50.911 Malignant neoplasm of unspecified site of right female breast; Z92.3 Personal history of irradiation | CPT/HCPCS: 99212 ==

== ENCOUNTER 2024-01-06 08:55 | Outpatient (AMB) | payer MEDICARE, SELFPAY ==
[2024-01-06 09:12] VITALS: BP 132/67; PULSE 93; O2SAT 92; BMI 31.7
--- NOTE | 2024-01-06 09:12 | MHC.OFFVIS ---
Vital Signs 01/06/24 09:12 Height 5 ft 4.75 in Weight 189 lb BMI 31.7 BP 132/67 Blood Pressure Location Lt brachial Position Sitting Pulse 93 Pulse Source Doppler Pulse Oximetry (%) 92 Oxygen Delivery Method Room Air Intake Visit Reasons: Pulmonary nodule Allergies Tetanus Vaccines and Toxoid [TETANUS VACCINES & TOXOID] Allergy (Mild, Verified 01/06/24 09:17) SWELLING influenza virus vaccine, specific [FLU VACCINE] Allergy (Unknown, Verified 01/06/24 09:17) SWELLING, MUSCLE ACHING clopidogrel [From Plavix] Allergy (Verified 01/06/24 09:17) Unknown ibuprofen [From Motrin] Allergy (Verified 01/06/24 09:17) Vomiting dexlansoprazole [DEXLANSOPRAZOLE] Adverse Reaction (Unknown, Verified 01/06/24 09:17) PT HEARS HEART BEAT IN EARS FLU Vaccine Allergy (Mild, Uncoded 10/24/23 08:13) Muscle Pain Tetanus, diptheria, toxoids Allergy (Mild, Uncoded 10/24/23 08:13) Swelling Doxycycline Adverse Reaction (Unknown, Uncoded 10/24/23 08:13) nausea and vomiting HPI HPI Pulmonary nodule: Details: 78-year-old lady, former 40+ pack-year smoker, quit 2006 with underlying history of breast cancer status post lumpectomy, chemotherapy and radiation now followed for COPD. Patient states that she continues to experience no symptoms. She is also following up with MRSA thoracic surgery for her pulmonary nodules. She denies recent exacerbations. [facility] Medical History (Updated 01/06/24 @ 09:28 by Angel Talley MD) Personal history of nicotine dependence History of right breast cancer (~2017) History of gastric ulcer History of DVT of lower extremity Surgical History History of lung surgery (07/31/22) History of intravascular stent placement History of cardiac radiofrequency ablation History of lymph node excision History of lumpectomy of right breast Family History Father Melanoma Mother Ovarian cancer, Onset Age: 48 Lung cancer Brother Throat cancer Lung cancer Lymphoma Social History Household Members: Spouse Housing: House Are you a primary behavioral health care coordinator to a significant other at home: No Do you presently have visiting nurse or other home services: No Alcohol intake: former Patient Tobacco Use Status: Never used Tobacco Advance Directives Date on File: 06/14/20 service: No Current occupational status: retired 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 Review of Systems Const Denies daytime sleepiness, Denies excessive sweating, Denies fatigue, Denies fever(s), Denies lethargy, Denies malaise, Denies night sweats, Denies snoring and Denies weight loss Eyes Denies blurry vision and Denies itchy eyes ENT Denies nasal congestion, Denies post nasal drip, Denies sinus pain, Denies sinus pressure and Denies other ( Thrush) Card Denies chest pain, Denies pedal edema, Denies dyspnea, Denies orthopnea and Denies paroxysmal nocturnal dyspnea Resp Denies cough, Denies hemoptysis, Denies excessive phlegm production, Denies dyspnea, Denies snoring and Denies wheezing GI Denies abdominal pain and Denies heartburn Musc Denies myalgias, Denies arthralgias and Denies joint swelling Skin/Breast Denies rash Neuro Denies memory loss and Denies seizure-like activity Psych Denies abnormal sleep pattern, Denies anxiety and Denies memory loss Endo Denies excessive sweating, Denies fatigue and Denies heat intolerance Elier/Lymph Denies easy bruising Aller/Immun Denies itchy eyes, Denies seasonal rhinorrhea and Denies wheezing Physical Exam Vital Signs: Last Vital Signs Pulse 93 01/06/24 09:12 BP 132/67 01/06/24 09:12 Pulse Ox 92 01/06/24 09:12 Oxygen Delivery Method Room Air 01/06/24 09:12 BMI result Body Mass Index 31.7 Const General: no acute distress and alert Nutritional Appearance: not obese Orientation/consciousness: Other orientation findings ( oriented) HEENT Head: Yes atraumatic Eyes General: appearance normal, both eyes and all related structures Sclerae: sclerae normal EOM: EOMs intact bilaterally Neck Neck: Yes supple Lymphatic: no lymphadenopathy noted Resp Effort & Inspection: normal respiratory effort and no use of accessory muscles Auscultation: clear to auscultation bilaterally Cardio Rate: regular rate Rhythm: regular rhythm Heart sounds: no gallops, no murmurs and no rubs Skin General skin exam: other ( warm) Extrem General: No clubbing, No cyanosis and No edema Assessment & Plan Assessment & Plan (1) COPD (chronic obstructive pulmonary disease): Code(s): J44.9 - Chronic obstructive pulmonary disease, unspecified Category: Medical Plan: At this time continues to remain essentially asymptomatic. Continue to monitor clinically. (2) Personal history of nicotine dependence: Comment: (former 40+ pack-year smoker, quit 2006) Code(s): Z87.891 - Personal history of nicotine dependence Category: Medical Plan: Patient is outside the screening guidelines for lung cancer. She continues to follow-up with thoracic surgery at [facility] for prior history of lung nodules. Coding Level of Care Code Est Pt Level 3 (99839) Diagnoses COPD (chronic obstructive pulmonary disease) J44.9 Personal history of nicotine dependence Z87.891
== END 2024-01-06 09:26 | disposition home or self-care (01) ==
PROVIDERS: PCP Internal Medicine; Visit Provider Internal Medicine Pulmonary Disease
DX: J44.9 Chronic obstructive pulmonary disease, unspecified (principal); Z87.891 Personal history of nicotine dependence
CPT/HCPCS: 99213

== ENCOUNTER → 2024-01-06 08:55 | Outpatient (BNVA) | payer MEDICARE, SELFPAY | PROVIDERS: PCP Internal Medicine; Visit Provider Internal Medicine Pulmonary Disease | DX: J44.9 Chronic obstructive pulmonary disease, unspecified (principal); R91.1 Solitary pulmonary nodule; Z87.891 Personal history of nicotine dependence | CPT/HCPCS: 99212 ==

== ENCOUNTER 2024-07-01 08:25 | Outpatient (REF) | payer MEDICARE, SELFPAY ==
--- NOTE | ~2024-07-01 | MM_ITS ---
EXAMINATION: MM SCREENING DIGITAL BREAST TOMOSYNTHESIS, BILATERAL CLINICAL INFORMATION: Screening. Asymptomatic. COMPARISON: Mammography: Comparison is made with available priors TECHNIQUE: Digital breast mammography with tomosynthesis is performed in both the craniocaudal and mediolateral oblique views along with computer-aided detection (CAD). FINDINGS: There are scattered areas of fibroglandular density (ACR BI-RADS breast composition Category b). Post lumpectomy changes of the right breast are stable. There are no significant masses, abnormal calcifications, or other abnormalities. MM/MM tomosynthesis screening BI IMPRESSION: No mammographic evidence of malignancy. ASSESSMENT: BI-RADS BI-RADS 2 - Benign Findings RECOMMENDATION: Routine annual mammography screening. 1 year F/U This examination should not preclude the clinical evaluation of a suspicious palpable abnormality. This patient's information was entered into a reminder system with a target due date for their next mammogram. Electronically signed by: Luciana De La Fuente DO 07/06/2024 05:24 PM EDT
--- NOTE | ~2024-07-01 | MM_ITS ---
EXAMINATION: BONE DENSITOMETRY CLINICAL INDICATION: Osteopenia. COMPARISON: Previous BD dated 11/15/2020 and baseline BD dated 04/17/2007. TECHNIQUE: Using a [employer] DXA System (software version: 13.1) manufactured by [employer], dual-energy x-ray absorptiometry was performed of the lumbar spine and left hip. The images are of good technical quality. Summary results are attached. FINDINGS: LEFT FEMUR, NECK: Current: BMD 0.721 g/cm2, Z-score -0.7, T-score -2.3, osteopenia. Prior: BMD 0.725 g/cm2. Baseline: BMD 0.847 g/cm2. LEFT FEMUR, TOTAL: Current: BMD 0.756 g/cm2, Z-score -0.6, T-score -2.0, osteopenia, 0.1% increase from previous, 10.3% decrease from baseline (<5% change is not significant). Prior: BMD 0.755 g/cm2. Baseline: BMD 0.843 g/cm2. AP SPINE L1-L4: Current: BMD 1.149 g/cm2, Z-score 0.9, T-score -0.3, normal, 0.6% decrease from previous, 3.5% increase from baseline (<5% change is not significant). Prior: BMD 1.156 g/cm2. Baseline: BMD 1.110 g/cm2. IDENTIFIED RISK FACTORS: Menopause. HISTORY OF FRACTURE: None listed. MEDICATIONS: Calcium, vitamin D. MM/XR DEXA axial skeleton IMPRESSION: 1. DIAGNOSIS: Osteopenia based on the lowest T-score value of -2.3 in the femoral neck applying World Health Organization criteria. 2. 10-YEAR FRACTURE RISK PREDICTION, FRAX: Major osteoporotic fracture (clinical spine, forearm, hip or shoulder) 15.6%. Hip fracture 4.7%. 3. Treatment Recommendations: NOF guidelines recommend consideration for treatment in postmenopausal women and men age 50 and older presenting with the following: -A hip or vertebral (clinical or morphometric) fracture. -T-score less than or equal to -2.5 at the femoral neck or spine after appropriate evaluation to exclude secondary causes. -Low bone mass at the hip or spine and a 10-year fracture probability by FRAX of greater than or equal to 3% for hip fracture or greater than or equal to 20% for major osteoporotic fracture based on the [place] adapted WHO algorithm. 4. Other Recommendations: All treatment decisions require clinical judgment and consideration of individual patient factors, including patient preferences, comorbidities, previous drug use, risk factors not captured in the FRAX model (e.g. frailty, falls, vitamin D deficiency, increased bone turnover, interval significant decline in bone density) and possible under or overestimation of fracture risk by FRAX. Additional medical evaluation for secondary cause of low bone mineral density may be appropriate. FUTURE SCAN RECOMMENDATION: People with diagnosed cases of osteoporosis or at high risk for fracture should have regular bone mineral density tests. For patients eligible for Medicare, routine testing is allowed once every 2 years. The testing frequency can be increased to one year for patients who have rapidly progressing disease, those who are receiving or discontinuing medical therapy to restore bone mass, or have additional risk factors. Electronically signed by: Hipolito Silveira MD 07/02/2024 12:31 PM EDT
== END 2024-07-01 08:26 | disposition home or self-care (01) ==
LOC: HO.MAMMO 08:25
PROVIDERS: PCP Internal Medicine; Visit Provider Internal Medicine Medical Oncology
DX: Z12.31 Encounter for screening mammogram for malignant neoplasm of breast (principal); Z13.820 Encounter for screening for osteoporosis; M85.80 Other specified disorders of bone density and structure, unspecified site; Z78.0 Asymptomatic menopausal state
CPT/HCPCS: 77063; 77067; 77080

== ENCOUNTER → 2024-07-01 09:15 | Outpatient (BNV) | payer MEDICARE, SELFPAY | PROVIDERS: PCP Internal Medicine; Visit Provider Internal Medicine | DX: Z12.31 Encounter for screening mammogram for malignant neoplasm of breast (principal) | CPT/HCPCS: 77063; 77067 ==

== ENCOUNTER 2024-09-15 10:32 | Outpatient (AMB) | payer MEDICARE, SELFPAY ==
--- NOTE | 2024-09-15 10:41 | MHC.OFFVIS ---
Vital Signs 09/15/24 10:42 Height 5 ft 4.75 in Weight 174 lb 4 oz BMI 29.2 BP 132/58 L Blood Pressure Location Lt brachial Position Sitting Pulse 94 Intake Visit Reasons: Yearly Breast Exam Intake Note: Patient is seen in office for yearly breast exam. Pt c/o: no changes or concerns regarding the breast mm:07/01/24 Auto Painter Required: No Market Research Coordinator: Market Research Coordinator Present Accompanied by: Self / Same As Patient Allergies Tetanus Vaccines and Toxoid [TETANUS VACCINES & TOXOID] Allergy (Mild, Verified 09/15/24 10:42) SWELLING influenza virus vaccine, specific [FLU VACCINE] Allergy (Unknown, Verified 09/15/24 10:42) SWELLING, MUSCLE ACHING clopidogrel [From Plavix] Allergy (Verified 09/15/24 10:42) Unknown ibuprofen [From Motrin] Allergy (Verified 09/15/24 10:42) Vomiting dexlansoprazole [DEXLANSOPRAZOLE] Adverse Reaction (Unknown, Verified 09/15/24 10:42) PT HEARS HEART BEAT IN EARS FLU Vaccine Allergy (Mild, Uncoded 09/15/24 10:42) Muscle Pain Tetanus, diptheria, toxoids Allergy (Mild, Uncoded 09/15/24 10:42) Swelling Doxycycline Adverse Reaction (Unknown, Uncoded 09/15/24 10:42) nausea and vomiting HPI Comments Details: 78-year-old female patient, former patient of Dr. Pickett and Dr. Garay with a prior history of right breast cancer returning today for an annual breast examination.? She underwent a right breast lumpectomy with placement of BioZorb and right axillary sentinel node biopsy on 07/12/2017.? Pathology revealed a 1.5 cm grade 3 invasive ductal carcinoma ER/RI positive, HER2 Bruna negative.? Two right axillary sentinel nodes were benign.? Oncotype DX was 19 corresponding to a 12% risk of recurrence at 10 years with tamoxifen alone.? She completed 4 cycles of AC chemotherapy on 08/22/2020 (Dr. Douglas).? She subsequently underwent radiation therapy [facility] (Dr.? Clark).? She is currently not taking any antiestrogen therapy.? Genetic testing with my risk is negative for deleterious mutations and variance of uncertain significance. She continues to reports some fullness/thickening in the medial portion of her right breast incision. Her last mammogram dated of 07/01/2024 revealed no mammographic evidence of malignancy (BI-RADS 2). Routine annual mammography screening was recommended in 1 year. [facility] Medical History Personal history of nicotine dependence History of right breast cancer (~2017) History of gastric ulcer History of DVT of lower extremity Surgical History History of lung surgery (07/31/22) History of intravascular stent placement History of cardiac radiofrequency ablation History of lymph node excision History of lumpectomy of right breast Family History Father Melanoma Mother Ovarian cancer, Onset Age: 48 Lung cancer Brother Throat cancer Lung cancer Lymphoma Social History Household Members: Spouse Housing: House Are you a primary client care consultant to a significant other at home: No Do you presently have visiting nurse or other home services: No Alcohol intake: former Patient Tobacco Use Status: Never used Tobacco Advance Directives Date on File: 06/14/20 service: No Current occupational status: retired 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 Review of Systems Const All systems reviewed & are unremarkable except as noted in HPI and below Denies chills, Denies fever(s) and Denies night sweats Resp Denies change in phlegm color, Denies cough, Denies hemoptysis and Denies wheezing GI Denies abdominal pain, Denies hematochezia, Denies constipation, Denies heartburn and Denies diarrhea Denies nipple discharge Skin/Breast Reports breast swelling, Reports breast skin changes, Denies breast pain, Reports breast mass and Denies nipple discharge Aller/Immun Denies wheezing Physical Exam Vital Signs: Last Vital Signs Pulse 94 09/15/24 10:42 BP 132/58 L 09/15/24 10:42 BMI result Body Mass Index 29.2 Const General: cooperative, healthy appearing, comfortable, no acute distress, well developed, alert and awake Neck Neck: Yes normal visual inspection, Yes full ROM, Yes no lymphadenopathy, Yes trachea midline and Yes supple Chest Other: Right breast: Transverse incision with scar retraction located in the upper outer quadrant of the right breast. A palpable masses noted in the medial incision which extends beyond the incision, measuring approximately 2 cm. No ulceration or bleeding is identified. Skin thickening noted in the medial incision is well. No change from prior examination. No enlarged lymph nodes are palpable. No other palpable masses are appreciated. Left breast: No skin changes, no nipple discharge, no palpable mass, no tenderness, no enlarged lymph nodes. Chest/axillae images: 1. Biosorb UOQ Resp Effort & Inspection: normal respiratory effort, no stridor and not tachypneic Auscultation: no wheezes Cardio Jugular venous distension: no JVD GI Inspection: Yes normal to inspection Skin General skin exam: no rashes or lesions noted Neuro Other: Mobility Assessment: 1. 3 meter assessment time (seconds) 5 2. Gait observations: Normal balance and gait Extrem General: Yes no clubbing, cyanosis or edema Assessment & Plan Assessment & Plan (1) Invasive ductal carcinoma of breast, stage 1: Onset Date: ~2016 Comment: ([facility] - ER/RI pos, HER-2/bruna neg - dx 2016) Code(s): C50.919 - Malignant neoplasm of unspecified site of unspecified female breast Category: Medical Qualifiers: Laterality: right Qualified Code(s): C50.911 - Malignant neoplasm of unspecified site of right female breast (2) Breast mass, right: Code(s): N63.10 - Unspecified lump in the right breast, unspecified quadrant Category: Medical Qualifiers: Breast mass location: upper outer quadrant Qualified Code(s): N63.11 - Unspecified lump in the right breast, upper outer quadrant Plan 78-year-old female patient returning for follow-up breast examination following right breast lumpectomy and sentinel node biopsy in 2017 ([id number]). Examination today reveals chronic scarring in the right breast from the previous surgery and radiation therapy. No new suspicious findings are noted. The left breast is normal as well. Her most recent mammogram of 08/01/2024 reveals no mammographic evidence of malignancy (BI-RADS 2). She will undergo her regular annual mammogram in June 2025. She should return in 1 year for follow-up examination, sooner p.r.n.. Coding Level of Care Code Est Pt Level 3 (21727) Complex EM visit Add On G2211 Diagnoses Infiltrating ductal carcinoma of right breast, stage 1 C50.911 Laterality: right Mass of upper outer quadrant of right breast N63.11 Breast mass location: upper outer quadrant
[2024-09-15 10:42] VITALS: BP 132/58; PULSE 94; BMI 29.2
== END 2024-09-15 10:51 | disposition home or self-care (01) ==
PROVIDERS: PCP Internal Medicine; Visit Provider Surgery
DX: C50.911 Malignant neoplasm of unspecified site of right female breast (principal); N63.11 Unspecified lump in the right breast, upper outer quadrant
CPT/HCPCS: 99213; G2211

== ENCOUNTER → 2024-09-15 10:32 | Outpatient (BNVA) | payer MEDICARE, SELFPAY | PROVIDERS: PCP Internal Medicine; Visit Provider Surgery | DX: N63.11 Unspecified lump in the right breast, upper outer quadrant (principal); Z85.3 Personal history of malignant neoplasm of breast | CPT/HCPCS: 99212 ==

== ENCOUNTER 2024-12-30 12:54 | Outpatient (AMB) | payer MEDICARE, SELFPAY ==
[2024-12-30 13:00] VITALS: BP 138/64; PULSE 91; O2SAT 95; BMI 28.3
--- NOTE | 2024-12-30 13:00 | MHC.OFFVIS ---
Vital Signs 12/30/24 13:00 Height 5 ft 4.75 in Weight 169 lb BMI 28.3 BP 138/64 Blood Pressure Location Lt brachial Position Sitting Pulse 91 Pulse Source Doppler Pulse Oximetry (%) 95 Oxygen Delivery Method Room Air Intake Visit Reasons: pulmonary nodule Allergies Tetanus Vaccines and Toxoid [TETANUS VACCINES & TOXOID] Allergy (Mild, Verified 12/30/24 13:06) SWELLING influenza virus vaccine, specific [FLU VACCINE] Allergy (Unknown, Verified 12/30/24 13:06) SWELLING, MUSCLE ACHING clopidogrel [From Plavix] Allergy (Verified 12/30/24 13:06) Unknown ibuprofen [From Motrin] Allergy (Verified 12/30/24 13:06) Vomiting dexlansoprazole [DEXLANSOPRAZOLE] Adverse Reaction (Unknown, Verified 12/30/24 13:06) PT HEARS HEART BEAT IN EARS FLU Vaccine Allergy (Mild, Uncoded 10/27/24 09:57) Muscle Pain Tetanus, diptheria, toxoids Allergy (Mild, Uncoded 10/27/24 09:57) Swelling Doxycycline Adverse Reaction (Unknown, Uncoded 10/27/24 09:57) nausea and vomiting HPI HPI pulmonary nodule: Details: 79-year-old lady, former 40+ pack-year smoker, quit 2006 with underlying history of breast cancer status post lumpectomy, chemotherapy and radiation now followed for COPD. Patient states that she continues to experience no symptoms. She is also following up with [facility] thoracic surgery for her pulmonary nodules. She denies recent exacerbations. [facility] Medical History Personal history of nicotine dependence History of right breast cancer (~2017) History of gastric ulcer History of DVT of lower extremity Surgical History History of lung surgery (07/31/22) History of intravascular stent placement History of cardiac radiofrequency ablation History of lymph node excision History of lumpectomy of right breast Family History Father Melanoma Mother Ovarian cancer, Onset Age: 48 Lung cancer Brother Throat cancer Lung cancer Lymphoma Social History Household Members: Spouse Housing: House Are you a primary career advisor to a significant other at home: No Do you presently have visiting nurse or other home services: No Alcohol intake: former Patient Tobacco Use Status: Never used Tobacco Advance Directives Date on File: 06/14/20 service: No Current occupational status: retired 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 Review of Systems Const Denies daytime sleepiness, Denies excessive sweating, Denies fatigue, Denies fever(s), Denies lethargy, Denies malaise, Denies night sweats, Denies snoring and Denies weight loss Eyes Denies blurry vision and Denies itchy eyes ENT Denies nasal congestion, Denies post nasal drip, Denies sinus pain, Denies sinus pressure and Denies other ( Thrush) Card Denies chest pain, Denies pedal edema, Denies dyspnea, Denies orthopnea and Denies paroxysmal nocturnal dyspnea Resp Denies cough, Denies hemoptysis, Denies excessive phlegm production, Denies dyspnea, Denies snoring and Denies wheezing GI Denies abdominal pain and Denies heartburn Musc Denies myalgias, Denies arthralgias and Denies joint swelling Skin/Breast Denies rash Neuro Denies memory loss and Denies seizure-like activity Psych Denies abnormal sleep pattern, Denies anxiety and Denies memory loss Endo Denies excessive sweating, Denies fatigue and Denies heat intolerance Elier/Lymph Denies easy bruising Aller/Immun Denies itchy eyes, Denies seasonal rhinorrhea and Denies wheezing Physical Exam Vital Signs: Last Vital Signs Pulse 91 12/30/24 13:00 BP 138/64 12/30/24 13:00 Pulse Ox 95 12/30/24 13:00 Oxygen Delivery Method Room Air 12/30/24 13:00 BMI result Body Mass Index 28.3 Const General: no acute distress and alert Nutritional Appearance: not obese Orientation/consciousness: Other orientation findings ( oriented) HEENT Head: Yes atraumatic Eyes General: appearance normal, both eyes and all related structures Sclerae: sclerae normal EOM: EOMs intact bilaterally Neck Neck: Yes supple Lymphatic: no lymphadenopathy noted Resp Effort & Inspection: normal respiratory effort and no use of accessory muscles Auscultation: clear to auscultation bilaterally Cardio Rate: regular rate Rhythm: regular rhythm Heart sounds: no gallops, no murmurs and no rubs Skin General skin exam: other ( warm) Extrem General: No clubbing, No cyanosis and Yes edema (RLE lymphedema) Assessment & Plan Assessment & Plan (1) COPD (chronic obstructive pulmonary disease): Code(s): J44.9 - Chronic obstructive pulmonary disease, unspecified Category: Medical Plan: Asymptomatic. Continue to monitor clinically. (2) Solitary pulmonary nodule: Code(s): R91.1 - Solitary pulmonary nodule Category: Medical Plan: Continues to follow-up with [facility] thoracic. Coding Level of Care Code Est Pt Level 3 (33103) Diagnoses COPD (chronic obstructive pulmonary disease) J44.9 Solitary pulmonary nodule R91.1
--- OUTSIDE RECORDS SUMMARY | 2024-12-30 15:13 | XMS_ITS | Clinical Summary ---
Author Organization [address] [place] [address] Address [address] [place] [address] Phone Care Team Providers Care Transit Manager Name Role Phone Joss Weinberg MD Primary Care Provider Allergies Active Allergy Reactions Criticality Noted Date Comments Aspirin Other 12/15/2018 Stomach bleeding Influenza Virus Vaccines 08/09/2024 Tetanus And Diphtheria Toxoids 04/14 Medications acetaminophen (TYLENOL) 500 mg tablet Take 1 tablet (500 mg total) by mouth every 6 (six) hours if needed. 07/07/2019 Active amLODIPine-nika zepril (LOTREL) 5-10 mg per capsule Take 1 capsule by mouth 1 (one) time each day. 07/16/2022 Active aspirin 81 mg EC tablet Take 1 tablet (81 mg total) by mouth 1 (one) time each day. Active hydrALAZINE (APRESOLINE) 10 mg tablet Take 1 tablet (10 mg total) by mouth 2 (two) times a day. Active metoprolol succinate (Kapspargo Sprinkle) 50 mg capsule,sprinkl e,ER 24hr Take by mouth. Active pantoprazole (PROTONIX) 40 mg packet Take by mouth. Active rosuvastatin (CRESTOR) 10 mg tablet Take 2 tablets (20 mg total) by mouth 1 (one) time each day. 07/07/2019 Active sucralfate (CARAFATE) 1 gram tablet Take 1 tablet (1 g total) by mouth 4 (four) times a day. 07/07/2019 Active traMADoL (ULTRAM) 50 mg tablet Take 1 tablet (50 mg total) by mouth every 6 (six) hours if needed. Max Daily Amount: 200 mg Active warfarin (COUMADIN) 5 mg tablet Take 1 tablet (5 mg total) by mouth. See Admin Instructions . May cause heavy bleeding. Take at same time every day. Do not change dietary habits. 07/07/2019 Active Active Problems Problem Noted Date Diagnosed Date Pulmonary nodule 08/09/2022 Overview (08/09/2024): Last Assessment & Plan: Ms. Kelly is a 76 yr. female S/P Robotic RML on July 31, 2022. 1. She continues to recover well from surgery. 2. Her 3 month follow-up CT scan no longer demonstrates nodule in right middle lobe. She continues to have stable pulmonary nodules and will refer her back to the lung cancer screening program. 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 3. She is instructed to call the office with any questions or concerns. VT (ventricular tachycardia) ([facility] V24, [facility] V28) 07/16/2022 Acid reflux 08/21/2019 Hyperlipidemia 08/21/2019 Hypertension 08/21/2019 Paroxysmal atrial fibrillation ([facility] V24, [facility] V28) 08/21/2019 Sick sinus syndrome ([facility] V24, [facility] V28) 1 10/22/2018 Overview (08/09/2024): 2015 S/p pacemaker Bilateral carotid artery stenosis 12/15/2018 PAD (peripheral artery disease) ([facility] V24) Varicose veins of bilateral lower extremities wi th pain 12/15/2018 Encounters Date Type Department Care Team Description 12/11/2024 6:40 PM EDT Ancillary Procedure [facility] - [address] [place] [address] 12/11/2024 11:20 AM EDT Ancillary Procedure [facility] - [address] [place] [address] 12/08/2024 11:20 PM EDT Ancillary Procedure [facility] - [address] [place] [address] 10/08/2024 2:00 PM EST Ancillary Procedure [facility] - [address] [place] [address] Encounter for adjustment or management of cardiac device from Last 3 Months Surgical History Surgery Date Site/Laterality Comments OTHER SURGICAL HISTORY PROCEDURE: HISTORICAL THYRO-DUCTAL CYST REMOVAL; COMMENT: cyst removal unfer right arm OTHER SURGICAL HISTORY PROCEDURE: CHG BLOOD CLOT RETRACTION; COMMENT: blood clot removed from left groin put in a stent OTHER SURGICAL HISTORY PROCEDURE: PA EXC CYST/ABERRANT BREAST TISSUE OPEN 1/> LESION; COMMENT: right side 07/12/2017 OTHER SURGICAL HISTORY PROCEDURE: SUPPLY OF CHEMOTHERAPY AGENT; COMMENT: cumulative dose of adriamycin OTHER SURGICAL HISTORY 02/19/2017 Right PROCEDURE: HISTORICAL FEM/POPLITEAL BY LEG SURGERY 2013 Left PROCEDURE: HISTORICAL LEG SURGERY; COMMENT: fem-iliac stent placement PACEMAKER IMPLANT 10/2014 PROCEDURE: HISTORICAL PACEMAKER; COMMENT: afib with conversion pauses; dual chamber OTHER SURGICAL HISTORY 10/11/2021 PROCEDURE: PA REVASCULARIZATION ILIAC ARTERY ANGIOP 1ST VSL; COMMENT: Angioplasty, iliac art, unilat, initial vessel OTHER SURGICAL HISTORY 10/11/2021 PROCEDURE: PA REVSC OPN/PRG FEM/POP W/ANGIOPLASTY UNI; COMMENT: Angioplasty, femoral, popliteal art(s), unilat OTHER SURGICAL HISTORY 10/11/2021 PROCEDURE: PA CESSATION THROMBOLYTIC THER W/CATHETER REMOVAL OTHER SURGICAL HISTORY 10/10/2021 PROCEDURE: PA THROMBOLYSIS ARTERIAL INFUSION ICRA RS&I INIT TX OTHER SURGICAL HISTORY 10/10/2021 PROCEDURE: ULTRASOUND GUIDANCE FOR VASCULAR AC OTHER SURGICAL HISTORY 11/29/2021 PROCEDURE: PA THROMBOLYSIS ARTERIAL INFUSION ICRA RS&I INIT TX OTHER SURGICAL HISTORY 11/29/2021 PROCEDURE: ULTRASOUND GUIDANCE FOR VASCULAR AC OTHER SURGICAL HISTORY 11/30/2021 PROCEDURE: PA REVSC OPN/PRQ FEM/POP W/STNT/ANGIOP SM VSL OTHER SURGICAL HISTORY 11/30/2021 PROCEDURE: PA CESSATION THROMBOLYTIC THER W/CATHETER REMOVAL OTHER SURGICAL HISTORY 11/30/2021 PROCEDURE: PA INTRAVASCULAR US NONCORONARY RS&I INTIAL VESSEL OTHER SURGICAL HISTORY 11/30/2021 PROCEDURE: PA INTRAVASCULAR US NONCORONARY RS&I ADDL VESSEL; COMMENT: X3 OTHER SURGICAL HISTORY 01/02/2022 PROCEDURE: PA SLCTV CATHJ 1ST 2ND ORD THRC/BRCH/CPHLC BRNCH OTHER SURGICAL HISTORY 01/02/2022 PROCEDURE: PA SLCTV CATHJ EA 2ND+ ORD THRC/BRCH/CPHLC BRNCH OTHER SURGICAL HISTORY 01/02/2022 PROCEDURE: X-RAY ABDOMINAL AORTA, LEG ARTERIES OTHER SURGICAL HISTORY 01/02/2022 PROCEDURE: X-RAY EXAM OF ARM/LEG ARTERY OTHER SURGICAL HISTORY 01/02/2022 PROCEDURE: ULTRASOUND GUIDANCE FOR VASCULAR AC OTHER SURGICAL HISTORY 03/20/2022 PROCEDURE: PA SLCTV CATHJ 3RD+ ORD SLCTV ABDL PEL/LXTR BRNCH OTHER SURGICAL HISTORY 03/20/2022 PROCEDURE: X-RAY OF ABDOMINAL AORTA OTHER SURGICAL HISTORY 03/20/2022 PROCEDURE: X-RAY EXAM OF ARM/LEG ARTERY OTHER SURGICAL HISTORY 03/20/2022 PROCEDURE: ULTRASOUND GUIDANCE FOR VASCULAR AC OTHER SURGICAL HISTORY 04/11/2022 PROCEDURE: PA ROPRTJ > 1 MO AFTER ORIGINAL OPRATION OTHER SURGICAL HISTORY 04/11/2022 PROCEDURE: PA BYP FEM-ANT TIBL PST TIBL PRONEAL ART/OTH DSTL OTHER SURGICAL HISTORY 04/11/2022 PROCEDURE: PA EXCISION INFECTED GRAFT EXTREMITY OTHER SURGICAL HISTORY PROCEDURE: PA BYPASS W/VEIN FEMORAL-FEMORAL; COMMENT: tibial OTHER SURGICAL HISTORY 02/2020 PROCEDURE: PA ANES CARDIAC ELECTROPHYSIOL STDY W/RF ABLATION OTHER SURGICAL HISTORY 09/2014 PROCEDURE: HISTORY OTHER; COMMENT: Left common femoral endarterectomy with patch angioplasty BREAST LUMPECTOMY Right PROCEDURE: HISTORICAL BREAST LUMPECTOMY OTHER SURGICAL HISTORY 07/31/2022 Right PROCEDURE: PA RESCJ&BRONCHOPLASTY PFRMD TM LOBEC/SGMECTOMY; COMMENT: VATS (Da vinvi RML lobectomy, extensive pneumo lysis, mediastinal lymphadenectomy, bronch w aspiration, placement of On-Q) Medical History Medical History Date Comments Hypertension 08/21/2019 DX:Hypertension Hyperlipidemia 08/21/2019 DX:Hyperlipidemi a Paroxysmal atrial fibrillati on (CMS/HCC V24, CMS/HCC V28) 08/21/2019 DX:Paroxysmal atrial fibril lation (HCC) History of breast cancer 08/21/2019 DX:Hist ory of breast cancer; COMMENT: 2017 chemo Pacemaker 08/21/2019 DX:Pacemaker; CO MMENT: 2014 SSS Sick sinus syndrome ([facility] V24, [facility] V28) 08/21/2019 DX:Sick sinus syndrome ([facility]) ; COMMENT: 2014 S/p pacemaker Acid reflux 08/21/2019 DX:Acid reflux Bilateral carotid artery stenosis 12/15/2018 DX:Bilateral carotid artery stenosis PAD (peripheral artery disea se) ([facility] V24) 12/15/2018 DX:PAD (peripheral artery di sease) ([facility]) Varicose veins of bilateral lower extremities with pain 12/15/2018 DX:Varicose veins of bilater al lower extremities with pain Ischemia of right lower extremity DX:Ischemia of right lower extremity Breast cancer ([facility] V24, [facility] V28) 07/16/2022 DX:Breast cancer (HCC) Multiple gastric ulcers DX:Multi ple gastric ulcers Osteoarthritis DX:Osteoarthriti s Family History Medical History Relation Name Comments Lung cancer Mother Multiple other cancers Ovarian cancer Mother Relation Name Status Comments Mother Social History Tobacco Use Types Packs/Day Years Used Date Smoking Tobacco: Former Cigarettes Q uit: 09/09/2014 Smokeless Tobacco: Never Alcohol Use Standard Drinks/Week Comments No 0 (1 standard drink = 0.6 oz pur e alcohol) Comments Unknown Sex and Gender Information Value Date Recorded Sex Assigned at Female 07/24/2024 1:18 PM EST Legal Sex Female 2:23 AM EST Gender Identity Female 07/24/2024 1:18 PM EST Sexual Orientation Lesbian or [place] 07/24/2024 1: 18 PM EST Obstetrics History Last Filed Vital Signs Vital Sign Reading Time Taken Comments Blood Pressure 117/72 05/06/2024 10:27 AM EDT L Arm Pulse 84 05/06/2024 10:27 AM EDT Temperature - - Respiratory Rate - - Oxygen Saturation - - Inhaled Oxygen Concentration - - Weight 84.2 kg (185 lb 9.6 oz) 05/06/2024 10:27 AM EDT Height 165.1 cm (5' 5 ) 05/06/2024 10:27 AM EDT Body Mass Index 30.89 05/06/2024 10:27 AM EDT Plan of Treatment Upcoming Encounters Date Type Department Care Team (Late st Contact Info) Description 05/21/2025 1:00 PM EDT Appointment [facility] Ultrasound [address] [place] [id number] 10/11/2025 10:00 AM EST Ancillary Procedure [facility] [address] [facility] [address] [place] [phone] Health Maintenance Due Date Last Done Comments DTaP,Tdap,and Td Vaccines (1 - Tdap) 1964 Zoster Vaccines (1 of 2) 1964 Pneumococcal Vaccine: 50+ Years (2 of 2 - PPSV23) 01/10/2017 11/15/2016 RSV Immunization Adult Patients (1 - 1-dose 75+ series) 2021 Cholesterol Screening (Lipid Panel) 08/18/2022 Depression Screening 08/18/2022 Falls Risk Assessment 08/18/2022 Hepatitis C Screening 08/18/2022 Medicare Annual Wellness Visit 08/18/2022 Osteoporosis Screening (Bone Density Screening) 08/18/2022 Social Influencers of Health Screening 08/18/2022 Hypertension/CHF/CAD Annual BMP Blood Test 08/24/2022 COVID-19 Vaccine (4 - 2023-2 5 season) 2024 08/01/2021, 01/06/2021, 12/16/2020 Influenza Vaccine (Season Ended) 2025 HIB Vaccines Aged Out No longer eligi ble based on patient's age to complete this topic HPV Vaccines Aged Out No longer eligi ble based on patient's age to complete this topic Hepatitis A Vaccines Aged Out No long er eligible based on patient's age to complete this topic Hepatitis B Vaccines Aged Out No long er eligible based on patient's age to complete this topic IPV Vaccines Aged Out No longer eligi ble based on patient's age to complete this topic MMR Vaccines Aged Out No longer eligi ble based on patient's age to complete this topic Meningococcal ACWY Vaccine Aged Out N o longer eligible based on patient's age to complete this topic Meningococcal B Vaccine Aged Out No l onger eligible based on patient's age to complete this topic RSV Immunization Patients Under 20 months Aged Out No longer eligible b ased on patient's age to complete this topic Varicella Vaccines Aged Out No longer eligible based on patient's age to complete this topic Medical Devices Implanted Type Area Sport Internship Device Identifier Shelf Expiration Date Model / Serial / Lot Medt-Card Advisa Dr Mccormick [id number] Implanted:10/11 by Francisca Blair MD (Quantity not on file) Cardiac Pacemaker Left: Chest [employer] - CARDIAC RHYTH-CRDM ADVISA DR MCCORMICK [id number] / [id number] / Procedures Procedure Name Priority Date/Time Associated Diagnosis Comments CARDIAC DEVICE CHECK- REMOTE- MURJ Routine 12/11/2024 6:35 PM EDT CARDIAC DEVICE CHECK- REMOTE- MURJ Routine 12/11/2024 11:19 AM EDT CARDIAC DEVICE CHECK- REMOTE- MURJ Routine 12/08/2024 11:17 PM EDT CARDIAC DEVICE CHECK- IN CLINIC- MURJ Routine 10/08/2024 2:01 PM EST Encounter for adjustment or management of cardiac device from Last 3 Months Results * Cardiac device check - Remote- MURJ (12/11/2024 6:35 PM EDT) Only the most recent of3 resultswithin the time period is included. Date Time Interrogation Session [id number] CV DEVICE CHECK Type Interrogation Session Remote CV DEVICE CHECK Implantable Pulse Generator Sport Internship MDT CV DEVICE CHECK Implantable Pulse Generator Type IPG CV DEVICE CHECK Implantable Pulse Generator Model Advisa MRI [id number] CV DEVICE CHECK Implantable Pulse Generator Serial Number [id number] CV DEVICE CHECK Implantable Pulse Generator Implant Date 20141105 CV DEVICE CHECK Battery Remaining Longevity 17.0 CV DEVICE CHECK Battery Voltage 2.900 CV D EVICE CHECK Battery MANAGER RESPIRATORY CARE Trigger 2.830 CV DEVICE CHECK Battery Status Middle of Service CV DEVICE CHECK Michael Statistic RA Percent Paced 84.01 CV DEVICE CHECK Michael Statistic RV Percent Paced 0.04 CV DEVICE CHECK Atrial Tachy Statistic AT/AF [place] Percent 0.00 CV DEVICE CHECK Lead Channel Sensing Intrinsic Amplitude 2.750 CV DEVICE CHECK Lead Channel Setting Sensing Sensitivity 0.30 CV DEVICE CHECK Lead Channel Impedance Value 475 CV DEVICE CHECK Lead Channel Pacing Threshold Amplitude 1.000 CV DEVICE CHECK Lead Channel Pacing Threshold Pulse Width 0.4 CV DEVICE CHECK Lead Channel RA Pacing Threshold Date 2024-04-07 CV DEVICE CHECK Lead Channel Setting Pacing Amplitude 2.000 CV DEVICE CHECK Lead Channel Setting Pacing Pulse Width 0.4 CV DEVICE CHECK Lead Channel Sensing Intrinsic Amplitude 12.500 CV DEVICE CHECK Lead Channel Setting Sensing Sensitivity 0.90 CV DEVICE CHECK Lead Channel Impedance Value 494 CV DEVICE CHECK Lead Channel Pacing Threshold Amplitude 0.750 CV DEVICE CHECK Lead Channel Pacing Threshold Pulse Width 0.4 CV DEVICE CHECK Lead Channel RV Pacing Threshold Date 2024-04-07 CV DEVICE CHECK Lead Channel Setting Pacing Amplitude 2.000 CV DEVICE CHECK Lead Channel Setting Pacing Pulse Width 0.4 CV DEVICE CHECK Michael Setting Mode (NBG Code) AAIR<=>DDDR CV DEVICE CHECK Michael Setting Lower Rate Limit 60 CV DEVICE CHECK Michael Setting AT Mode Switch Rate 171 CV DEVICE CHECK Michael Setting Maximum Tracking Rate 130 CV DEVICE CHECK Michael Setting Maximum Sensor Rate 130 CV DEVICE CHECK Michael Setting PAV Delay 180 CV DEVICE CHECK Michael Setting ZACHERY Delay 150 CV DEVICE CHECK Zone Setting Type Category AT/AF CV DEVICE CHECK Rate 171 CV DEVICE CHECK Therapies Some Rx Off CV DEVIC E CHECK Zone Setting Status Monitor CV DEVICE CHECK Zone ID 2 CV DEVICE CHECK Zone Setting Type Category VT CV DEVICE CHECK Rate 150 CV DEVICE CHECK Zone Setting Status ENABLED CV DEVICE CHECK Zone ID 6 CV DEVICE CHECK Date of Service 2024-06-12 CV DEVICE CHECK Anatomical Region Laterality Modality Device Interroga tion 04/07/2024 2:54 PM EDT Impressions 06/12/2024 10:53 AM EDT Normal Remote: With Events * Normal Device Function * Events or Alerts: 4 / AVNRT * Battery: OK, 1.42 yrs * Sensing, impedance and thresholds reviewed * Programmed parameters reviewed * Presenting rhythm reviewed * Heart Rate Histograms reviewed Narrative Procedure Note Francisca Blair MD - 12/11/2024 IMPRESSION: Normal Remote: With Events * Normal Device Function * Events or Alerts: 4 / AVNRT * Battery: OK, 1.42 yrs * Sensing, impedance and thresholds reviewed * Programmed parameters reviewed * Presenting rhythm reviewed * Heart Rate Histograms reviewed Francisca Blair MD CV IMPLANTABLE CARDIAC DEV ICE PROCEDURES Final Result * CARDIAC DEVICE CHECK- IN CLINIC- MUR (10/08/2024 2:01 PM EST) Date Time Interrogation Session [id number] CV DEVICE CHECK Implantable Pulse Generator Sport Internship MDT CV DEVICE CHECK Implantable Pulse Generator Type IPG CV DEVICE CHECK Implantable Pulse Generator Model Advisa DR MCCORMICK [id number] CV DEVICE CHECK Implantable Pulse Generator Serial Number [id number] CV DEVICE CHECK Implantable Pulse Generator Implant Date 20141105 CV DEVICE CHECK Battery Remaining Longevity 10.0 CV DEVICE CHECK Battery Voltage 2.880 CV D EVICE CHECK Battery Status Middle of Service CV DEVICE CHECK Michael Statistic RA Percent Paced 77.60 CV DEVICE CHECK Michael Statistic RV Percent Paced 0.10 CV DEVICE CHECK Atrial Tachy Statistic AT/AF [place] Percent 0.10 CV DEVICE CHECK Lead Channel Sensing Intrinsic Amplitude 4.100 CV DEVICE CHECK Lead Channel Setting Sensing Sensitivity 0.30 CV DEVICE CHECK Lead Channel Impedance Value 532 CV DEVICE CHECK Lead Channel Pacing Threshold Amplitude 1.000 CV DEVICE CHECK Lead Channel Pacing Threshold Pulse Width 0.4 CV DEVICE CHECK Lead Channel RA Pacing Threshold Date 2024-10-08 CV DEVICE CHECK Lead Channel Setting Pacing Amplitude 2.000 CV DEVICE CHECK Lead Channel Setting Pacing Pulse Width 0.4 CV DEVICE CHECK Lead Channel Sensing Intrinsic Amplitude 15.000 CV DEVICE CHECK Lead Channel Setting Sensing Sensitivity 0.90 CV DEVICE CHECK Lead Channel Impedance Value 551 CV DEVICE CHECK Lead Channel Pacing Threshold Amplitude 0.750 CV DEVICE CHECK Lead Channel Pacing Threshold Pulse Width 0.4 CV DEVICE CHECK Lead Channel RV Pacing Threshold Date 2024-10-08 CV DEVICE CHECK Lead Channel Setting Pacing Amplitude 2.000 CV DEVICE CHECK Lead Channel Setting Pacing Pulse Width 0.4 CV DEVICE CHECK Michael Setting Mode (NBG Code) AAIR<=>DDDR CV DEVICE CHECK Michael Setting Lower Rate Limit 60 CV DEVICE CHECK Michael Setting AT Mode Switch Rate 171 CV DEVICE CHECK Michael Setting Maximum Tracking Rate 130 CV DEVICE CHECK Michael Setting Maximum Sensor Rate 130 CV DEVICE CHECK Zone Setting Type Category AT/AF CV DEVICE CHECK Therapies All Rx Off CV DEVICE CHECK Zone Setting Status Monitor CV DEVICE CHECK Zone ID 2 CV DEVICE CHECK Zone Setting Type Category VT CV DEVICE CHECK Zone Setting Status Monitor CV DEVICE CHECK Zone ID 5 CV DEVICE CHECK Date of Service 2024-10-08 CV DEVICE CHECK Anatomical Region Laterality Modality Device Interroga tion 10/08/2024 Impressions 10/13/2024 12:58 PM EST In-Office Device Check * Date of interrogation complete * Normal Device Function * Alerts or events: 6 NSVT events noted since last remote; EGM's available suggestive of NSVT vs AF with RVR- longest 11 beats, pt asymptomatic. * Battery: Battery is at MOS, 10 months ?(< 6 - 14 months) * Sensing, impedance and thresholds reviewed and tested (Lead function reviewed) * Presenting Rhythm: - VS 60's * Heart Rate Histograms reviewed Narrative Procedure Note Francisca Blair MD - 10/13/2024 IMPRESSION: In-Office Device Check * Date of interrogation complete * Normal Device Function * Alerts or events: 6 NSVT events noted since last remote; EGM's availablesuggestive of NSVT vs AF with RVR- longest 11 beats, pt asymptomatic. * Battery: Battery is at MOS, 10 months (< 6 - 14 months) * Sensing, impedance and thresholds reviewed and tested (Lead functionreviewed) * Presenting Rhythm: - VS 60's * Heart Rate Histograms reviewed us Order Referral Cardiovascular CV IMPLANTABLE CAR DIAC DEVICE PROCEDURES Final Result from Last 3 Months Insurance [address]IC[facility] Care Teams Transit Manager Relationship Specialty Start Date End Date Joss Weinberg MD [address] [place] [id number] PCP - General Internal Medicine 07/24/24
== END 2024-12-30 13:28 | disposition home or self-care (01) ==
LOC: HO.HPS 12:55
PROVIDERS: PCP Internal Medicine; Visit Provider Internal Medicine Pulmonary Disease
DX: J44.9 Chronic obstructive pulmonary disease, unspecified (principal); R91.1 Solitary pulmonary nodule
CPT/HCPCS: 99213

== ENCOUNTER → 2024-12-30 12:54 | Outpatient (BNVA) | payer MEDICARE, SELFPAY | PROVIDERS: PCP Internal Medicine; Visit Provider Internal Medicine Pulmonary Disease | DX: J44.9 Chronic obstructive pulmonary disease, unspecified (principal); R91.1 Solitary pulmonary nodule; Z87.891 Personal history of nicotine dependence | CPT/HCPCS: 99212 ==

== ENCOUNTER 2025-04-19 12:35 | Outpatient (AMB) | payer MEDICARE, SELFPAY ==
--- OUTSIDE RECORDS SUMMARY | 2025-04-19 12:39 | XMS_ITS | Patient Health Record ---
Author Organization [facility] Address [address], [place] [id number] Care Team Providers Care Web Content Specialist Name Role Phone BIA RAMÍREZ Primary Care Provider SHINER, NURSING Unavailable [phone] ALLERGIES Allergen (clinical drug ingredient) Drug/Non Drug Allergy documented on EMR Reaction Allergy Type Onset Date Status Vaccine product containing Influenza virus antigen (medicinal product) Influenza Vaccines saldivar barre syndrome Drug Allergy Active Tetanus Toxoids arm swelling & redness Drug Allergy Active REASON FOR REFERRAL No Information MEDICATIONS Medication SIG (Take, Route, Frequency, Duration) Notes Start Date End Date Status Alendronate Sodium 70 MG 1 tablet 30 min utes before the first food, beverage or medicine of the day dissolved in 4 ounces of water Orally Once a week for 84 days Active Metoprolol Succinate ER 50 MG 1.5 tablets orally twice a day for 90 days Active Crestor 20 MG 1 tablet Orally Once a day for 90 days Active Warfarin Sodium 5 MG 1/2 - 1 tabs orally daily, skipping 1 day of the week for 90 days Active amLODIPine Besylate 5 MG 1 tablet Orally Once a day for 90 days Active hydrALAZINE HCl 10 MG 1 tablet with food Orally Twice a day for 90 days Active Sucralfate 1 GM 1 tab(s) orally thre e times daily for 90 days Active Meclizine HCl 25 MG 1 tablet as needed O rally every 12 hrs Active Pantoprazole Sodium 40 MG 1 tab(s) orall y twice a day for 90 days Active Aspirin EC 81 MG 1 tab(s) orally once a day Active Tylenol Extra Strength 500 MG 3 tabs orally daily Active Vitamin D3 50 MCG (1999 UT) 1 capsule Or ally Once a day Active traMADol HCl 50 MG 2 tabs orally 3 time s a day for 30 days 04/12/2025 Active IMMUNIZATIONS Vaccine Route Administration Date Status Comme nts SARSCOV2 VAC BVL 3MCG/0.2ML Pfizer Unknown 08/02/2021 A dministered Pneumococcal Prevnar 13 Unknown 11/15/2016 Administered Pfizer COVID-19,mRNA, LNP-S, PF, 30mcg/0.3mL dose Unknown 12/16/2020 Administered Pfizer COVID-19,mRNA, LNP-S, PF, 30mcg/0.3mL dose Unknown 01/06/2021 Administered SOCIAL HISTORY Tobacco Use: Social History Observation Description Date Details (start date - stop date) Former Smoker NA - NA Sex Assigned At : Social History Observation Description Sex Assigned At Unknown Smoking Question Answer Notes Are you a: former smoker How long has it been since you last smoked? > 10 years Alcohol Screen Question Answer Notes Did you have a drink containing alcohol in the p ast year? No Points 0 Interpretation Negative PROBLEMS Problem Type ICD Code Onset Dates Problem Status W/U Status Risk SNOMED Code Notes Problem Medication monitoring encounter (Z51.81) Active confirmed 940385136 Problem Generalized osteoarthritis (M15.9) Active confirmed 371848220 Problem History of breast cancer (Z85.3) Active confirmed 021865034 Problem Polymyalgia rheumatica (M35.3) Active confirmed 94402706 Problem Degenerative disc disease, cervical (M50.30) Active confirmed 27755561 Problem Mixed hyperlipidemia (E78.2) Active confirmed 829054382 Problem FPC (current) use of anticoagulants (Z79.01) Active confirmed Long-term current use of anticoagulant (675106996) Problem BMI 34.0-34.9,adult (Z68.34) Active confirmed 234125138 Problem Secondary hypercoagulable state (D68.69) Active confirmed 64904643 Problem Postmenopausal osteoporosis (M81.0) Active confirmed 045618160 Problem PAD (peripheral artery disease) (I73.9) Active confirmed 973651334 Problem Gastroesophageal reflux disease with esophagitis without hemorrhage (K21.00) Active confirmed 208668073 Problem Essential (primary) hypertension (I10) 11/29/19 10 Active confirmed Essential hypertension (30646624) Problem Paroxysmal atrial fibrillation (I48.0) 03/22/20 10 Active confirmed Paroxysmal atrial fibrillation (629291794) VITAL SIGNS Blood pressure diastolic 78 mm Hg 03/09/2025 Height 63.0 in 03/09/2025 Blood pressure systolic 136 mm Hg 03/09/2025 Weight 168.0 lbs 03/09/2025 BMI 29.76 kg/m2 03/09/2025 Encounters Encounter Location Date Provider Diagnosis [address] [address] 04/29/2024 [place] [id number] 04/30/2024 [facility] FPC (current) use of anticoagulants Z79.01 and Encounter for therapeutic drug level monitoring Z51.[address] [address] 05/08/2024 [facility] Generalized osteoarthritis M15.9 [place] [id number] 05/08/[address] [address] 05/27/[address] [address] 05/28/2024 [facility] FPC (current) use of anticoagulants Z79.01 and Encounter for therapeutic drug level monitoring Z51.[address] [address] 06/08/2024 [facility] Essential (primary) hypertension I10 ; Paroxysmal atrial fibrillation I48.0 ; PAD (peripheral artery disease) I73.9 ; Degenerative disc disease, cervical M50.30 ; Mixed hyperlipidemia E78.2 ; Gastroesophageal reflux disease with esophagitis without hemorrhage K21.00 ; Postmenopausal osteoporosis M81.0 and Prediabetes R73.[address] [address] 06/09/[address] [address] 06/10/[address] [address] 06/22/2024 [facility] Generalized osteoarthritis M15.[address] [place] [address] 06/24/2024 [facility] [address] [place] [phone] 06/25/2024 [facility] [address] [place] [phone] 06/25/2024 [facility] [address] [place] [phone] 06/25/2024 [facility] FPC (current) use of anticoagulants Z79.01 and Encounter for therapeutic drug level monitoring Z51.81 [facility] [address] [place] [phone] 07/01/2024 [facility] [address] [place] [phone] 07/02/2024 [facility] FPC (current) use of anticoagulants Z79.01 and Encounter for therapeutic drug level monitoring Z51.81 [facility] [address] [place] [phone] 07/08/2024 [facility] [address] [place] [phone] 07/09/2024 [facility] long term care pharmacist (current) use of anticoagulants Z79.01 and Encounter for therapeutic drug level monitoring Z51.81 [facility] [address] [place] [phone] 07/22/2024 [facility] [address] [place] [phone] 07/23/2024 [facility] long term care pharmacist (current) use of anticoagulants Z79.01 and Encounter for therapeutic drug level monitoring Z51.81 [facility] [address] [place] [phone] 08/03/2024 [facility] Generalized osteoarthritis M15.9 [facility] [address] [place] [phone] 08/03/2024 [facility] [address] [place] [phone] 08/04/2024 [facility] [address] [place] [phone] 08/05/2024 [facility]PC (current) use of anticoagulants Z79.01 and Encounter for therapeutic drug level monitoring Z51.[address] [address] 08/12/[address] [address] 08/13/2024 [facility]PC (current) use of anticoagulants Z79.01 and Encounter for therapeutic drug level monitoring Z51.[address] [address] 08/18/2024 [facility] Essential (primary) hypertension I10 ; Paroxysmal atrial fibrillation I48.0 ; Secondary hypercoagulable state D68.69 ; Gastroesophageal reflux disease with esophagitis without hemorrhage K21.00 ; Other specified disorders of bone density and structure, unspecified site M85.80 and Asymptomatic menopausal state Z78.[address] [address] 08/19/[address] [address] 08/20/2024 [facility] long term care pharmacist (current) use of anticoagulants Z79.01 and Encounter for therapeutic drug level monitoring Z51.[address] [address] 08/26/[address] [address] 08/27/2024 [facility]PC (current) use of anticoagulants Z79.01 and Encounter for therapeutic drug level monitoring Z51.81 [facility] [address] [place] [phone] 09/03/[address] [address] 09/04/2024 [facility]PC (current) use of anticoagulants Z79.01 and Encounter for therapeutic drug level monitoring Z51.[address] [address] 09/10/[address] [address] 09/11/[address] [address] 09/11/2024 [facility] long term care pharmacist (current) use of anticoagulants Z79.01 and Encounter for therapeutic drug level monitoring Z51.81 [facility] [address] [place] [address] 09/14/2024 [facility] Generalized osteoarthritis M15.9 [facility] [address] [place] [address] 09/17/2024 [facility] [address] [place] [phone] 09/17/2024 [facility] long term care pharmacist (current) use of anticoagulants Z79.01 and Encounter for therapeutic drug level monitoring Z51.81 [facility] [address] [place] [address] 09/24/2024 [facility] [address] [place] [phone] 09/25/2024 [facility] (current) use of anticoagulants Z79.01 and Encounter for therapeutic drug level monitoring Z51.81 [facility] [address] [place] [address] 10/07/2024 [facility] [address] [place] [address] 10/07/2024 [facility] [address] [place] [phone] 10/07/2024 [facility] FPC (current) use of anticoagulants Z79.01 and Encounter for therapeutic drug level monitoring Z51.81 [facility] [address] [place] [address] 10/21/2024 [facility] [address] [place] [phone] 10/21/2024 [facility] long term care pharmacist (current) use of anticoagulants Z79.01 and Encounter for therapeutic drug level monitoring Z51.81 [facility] [address] [place] [address] 10/23/2024 [facility] [address] [place] [phone] 10/27/2024 [facility] Generalized osteoarthritis M15.9 [facility] [address] [place] [address] 11/11/2024 [facility] [address] [place] [phone] 11/12/2024 [facility] FPC (current) use of anticoagulants Z79.01 and Encounter for therapeutic drug level monitoring Z51.81 [facility] [address] [place] [address] 11/18/2024 [facility] Paroxysmal atrial fibrillation I48.0 [facility] [address] [place] [phone] 11/18/2024 [facility] [address] [place] [phone] 11/18/2024 [facility] [address] [place] [phone] 11/18/2024 [facility] [address] [place] [phone] 11/19/2024 [facility] [address] [address] 11/20/2024 [facility]PC (current) use of anticoagulants Z79.01 and Encounter for therapeutic drug level monitoring Z51.81 [facility] [address] [place] [phone] 11/23/2024 [facility] Essential (primary) hypertension I10 ; Paroxysmal atrial fibrillation I48.0 ; PAD (peripheral artery disease) I73.9 ; History of breast cancer Z85.3 and Gastroesophageal reflux disease with esophagitis without hemorrhage K21.00 [facility] [address] [place] [phone] 12/02/2024 [facility] [address] [place] [phone] 12/02/2024 [facility] FPC (current) use of anticoagulants Z79.01 and Encounter for therapeutic drug level monitoring Z51.81 [facility] [address] [place] [phone] 12/08/2024 [facility] Generalized osteoarthritis M15.9 [facility] [address] [place] [phone] 12/23/2024 [facility] [address] [address] 12/24/2024 [facility] FPC (current) use of anticoagulants Z79.01 and Encounter for therapeutic drug level monitoring Z51.81 [facility] [address] [place] [address] 12/30/2024 [facility] [address] [place] [phone] 12/31/2024 [facility] FPC (current) use of anticoagulants Z79.01 and Encounter for therapeutic drug level monitoring Z51.81 [facility] [address] [place] [phone] 01/01/2025 [facility] [address] [place] [phone] 01/06/2025 [facility] [address] [place] [phone] 01/06/2025 [facility] long term care pharmacist (current) use of anticoagulants Z79.01 and Encounter for therapeutic drug level monitoring Z51.81 [facility] [address] [place] [phone] 01/13/2025 [facility] [address] [place] [phone] 01/18/2025 [facility] Generalized osteoarthritis M15.9 [facility] [address] [place] [phone] 01/27/2025 [facility] [address] [place] [phone] 01/27/2025 [facility] FPC (current) use of anticoagulants Z79.01 and Encounter for therapeutic drug level monitoring Z51.81 [facility] [address] [place] [phone] 02/17/2025 [facility] [address] [place] [phone] 02/18/2025 [facility] long term care pharmacist (current) use of anticoagulants Z79.01 and Encounter for therapeutic drug level monitoring Z51.81 [facility] [address] [address] 03/05/2025 [facility] Generalized osteoarthritis M15.[address] [facility] [address] [address] 03/09/2025 JOHN [facility] Medicare annual well ness visit, subsequent Z00.00 [facility] [address] [place] [phone] 03/09/2025 [facility] Essential (primary) hypertension I10 ; Paroxysmal atrial fibrillation I48.0 ; Secondary hypercoagulable state D68.69 ; Mixed hyperlipidemia E78.2 ; PAD (peripheral artery disease) I73.9 ; Gastroesophageal reflux disease with esophagitis without hemorrhage K21.00 ; History of breast cancer Z85.3 ; Generalized osteoarthritis M15.9 ; Postmenopausal osteoporosis M81.0 and Encounter for general adult medical examination with abnormal findings Z00.[address] [address] 03/17/[address] [address] 03/18/[address] [address] 04/08/[address] [address] 04/12/2025 [facility] Generalized osteoarthritis M15.[address] [address] 04/14/[address] [address] 04/14/2025 [facility] FPC (current) use of anticoagulants Z79.01 and Encounter for therapeutic drug level monitoring Z51.81 ASSESSMENTS Encounter Date Diagnosis Assessment Notes Treatment Notes Treatment Clinical Notes Section Notes 04/30/2024 FPC (current) use of anticoagulants (ICD-10 - Z79.01) Outreach to patient reviewed/instruct ed regarding Anticoagulation therapy & regimen. See Lab/Flowsheet for provider collaboration. 05/08/2024 Generalized osteoarthritis (ICD-10 - M15.9) 05/28/2024 long term care pharmacist (current) use of anticoagulants (ICD-10 - Z79.01) Outreach to patient reviewed/instruct ed regarding Anticoagulation therapy & regimen. See Lab/Flowsheet for provider collaboration. 08/18/2024 Essential (primary) hypertension (ICD-10 - I10) 1. Hypertension: Well-controlled on present therapy. No changes made today 2. Paroxysmal atrial fibrillation: No recurrence since last ablation. Stable anticoagulation 3. Gastroesophageal reflux: Stable on current antacid therapy. No changes made today 4.Osteopenia: Follow on alendronate - hip findings most pronounced 08/18/2024 Paroxysmal atrial fibrillation (ICD-10 - I48.0) 1. Hypertension: Well-controlled on present therapy. No changes made today 2. Paroxysmal atrial fibrillation: No recurrence since last ablation. Stable anticoagulation 3. Gastroesophageal reflux: Stable on current antacid therapy. No changes made today 4.Osteopenia: Follow on alendronate - hip findings most pronounced 06/22/2024 Generalized osteoarthritis (ICD-10 - M15.9) 06/25/2024 long term care pharmacist (current) use of anticoagulants (ICD-10 - Z79.01) Outreach to patient reviewed/instruct ed regarding Anticoagulation therapy & regimen. See Lab/Flowsheet for provider collaboration. 07/02/2024 long term care pharmacist (current) use of anticoagulants (ICD-10 - Z79.01) Outreach to patient reviewed/instruct ed regarding Anticoagulation therapy & regimen. See Lab/Flowsheet for provider collaboration. 07/09/2024 long term care pharmacist (current) use of anticoagulants (ICD-10 - Z79.01) Outreach to patient reviewed/instruct ed regarding Anticoagulation therapy & regimen. See Lab/Flowsheet for provider collaboration. 07/23/2024 FPC (current) use of anticoagulants (ICD-10 - Z79.01) Outreach to patient reviewed/instruct ed regarding Anticoagulation therapy & regimen. See Lab/Flowsheet for provider collaboration. 08/03/2024 Generalized osteoarthritis (ICD-10 - M15.9) 08/05/2024 FPC (current) use of anticoagulants (ICD-10 - Z79.01) Outreach to patient reviewed/instruct ed regarding Anticoagulation therapy & regimen. See Lab/Flowsheet for provider collaboration. 08/13/2024 long term care pharmacist (current) use of anticoagulants (ICD-10 - Z79.01) Outreach to patient reviewed/instruct ed regarding Anticoagulation therapy & regimen. See Lab/Flowsheet for provider collaboration. 11/23/2024 Essential (primary) hypertension (ICD-10 - I10) 1. Hypertension: Well-controlled on present therapy. No changes made today 2. Paroxysmal atrial fibrillation: Stable without evidence of recurrence. Continues on anticoagulation and is checking regularly 3. Peripheral arterial disease: Stable after revascularization . Will continue to follow closely with vascular surgery 4. History of breast cancer: Mammogram is up-to-date. 5. Gerd: Stable on present pantoprazole and sucralfate. No changes made today 11/23/2024 Paroxysmal atrial fibrillation (ICD-10 - I48.0) 1. Hypertension: Well-controlled on present therapy. No changes made today 2. Paroxysmal atrial fibrillation: Stable without evidence of recurrence. Continues on anticoagulation and is checking regularly 3. Peripheral arterial disease: Stable after revascularization . Will continue to follow closely with vascular surgery 4. History of breast cancer: Mammogram is up-to-date. 5. Gerd: Stable on present pantoprazole and sucralfate. No changes made today 08/20/2024 FPC (current) use of anticoagulants (ICD-10 - Z79.01) Outreach to patient reviewed/instruct ed regarding Anticoagulation therapy & regimen. See Lab/Flowsheet for provider collaboration. 08/27/2024 FPC (current) use of anticoagulants (ICD-10 - Z79.01) Outreach to patient reviewed/instruct ed regarding Anticoagulation therapy & regimen. See Lab/Flowsheet for provider collaboration. 09/04/2024 long term care pharmacist (current) use of anticoagulants (ICD-10 - Z79.01) Outreach to patient reviewed/instruct ed regarding Anticoagulation therapy & regimen. See Lab/Flowsheet for provider collaboration. 09/11/2024 FPC (current) use of anticoagulants (ICD-10 - Z79.01) Outreach to patient reviewed/instruct ed regarding Anticoagulation therapy & regimen. See Lab/Flowsheet for provider collaboration. 09/14/2024 Generalized osteoarthritis (ICD-10 - M15.9) 09/17/2024 long term care pharmacist (current) use of anticoagulants (ICD-10 - Z79.01) Outreach to patient reviewed/instruct ed regarding Anticoagulation therapy & regimen. See Lab/Flowsheet for provider collaboration. 09/25/2024 long term care pharmacist (current) use of anticoagulants (ICD-10 - Z79.01) Outreach to patient reviewed/instruct ed regarding Anticoagulation therapy & regimen. See Lab/Flowsheet for provider collaboration. 10/07/2024 FPC (current) use of anticoagulants (ICD-10 - Z79.01) Outreach to patient reviewed/instruct ed regarding Anticoagulation therapy & regimen. See Lab/Flowsheet for provider collaboration. 10/21/2024 long term care pharmacist (current) use of anticoagulants (ICD-10 - Z79.01) Outreach to patient reviewed/instruct ed regarding Anticoagulation therapy & regimen. See Lab/Flowsheet for provider collaboration. 10/27/2024 Generalized osteoarthritis (ICD-10 - M15.9) 11/12/2024 [facility]PC (current) use of anticoagulants (ICD-10 - Z79.01) Outreach to patient reviewed/instruct ed regarding Anticoagulation therapy & regimen. See Lab/Flowsheet for provider collaboration. 11/18/2024 Paroxysmal atrial fibrillation (ICD-10 - I48.0) 11/20/2024 [facility]PC (current) use of anticoagulants (ICD-10 - Z79.01) Outreach to patient reviewed/instruct ed regarding Anticoagulation therapy & regimen. See Lab/Flowsheet for provider collaboration. 03/09/2025 Medicare annual wellness visit, subsequent (ICD-10 - Z00.00) AWV reviewed with pt 03/09/2025 Essential (primary) hypertension (ICD-10 - I10) 1. Hypertension: Stable on current metoprolol, hydralazine and amlodipine. No changes made today 2. Paroxysmal atrial fibrillation: No obvious recurrence since last ablation. Continues on anticoagulation with Coumadin 3. Hyperlipidemia: Will update profile on current Crestor 4. Peripheral arterial disease: Follows with vascular. No current claudication 5. Gastroesophageal reflux: Stable on current pantoprazole and Carafate. Will continue same 6. History of breast cancer: Stable without evidence of recurrence. Mammogram is up-to-date 7. Generalized osteoarthritis: Stable with tramadol which she uses as directed without adverse effect 8. Osteoporosis: Stable on alendronate. Bone density was done in June 17. Routine healthcare maintenance: Mammogram is up-to-date. GI told her she does not need further colonoscopies. She will update fasting blood work 03/09/2025 Paroxysmal atrial fibrillation (ICD-10 - I48.0) 1. Hypertension: Stable on current metoprolol, hydralazine and amlodipine. No changes made today 2. Paroxysmal atrial fibrillation: No obvious recurrence since last ablation. Continues on anticoagulation with Coumadin 3. Hyperlipidemia: Will update profile on current Crestor 4. Peripheral arterial disease: Follows with vascular. No current claudication 5. Gastroesophageal reflux: Stable on current pantoprazole and Carafate. Will continue same 6. History of breast cancer: Stable without evidence of recurrence. Mammogram is up-to-date 7. Generalized osteoarthritis: Stable with tramadol which she uses as directed without adverse effect 8. Osteoporosis: Stable on alendronate. Bone density was done in June 17. Routine healthcare maintenance: Mammogram is up-to-date. GI told her she does not need further colonoscopies. She will update fasting blood work 12/02/2024 long term care pharmacist (current) use of anticoagulants (ICD-10 - Z79.01) Outreach to patient reviewed/instruct ed regarding Anticoagulation therapy & regimen. See Lab/Flowsheet for provider collaboration. 12/08/2024 Generalized osteoarthritis (ICD-10 - M15.9) 12/24/2024 long term care pharmacist (current) use of anticoagulants (ICD-10 - Z79.01) Outreach to patient reviewed/instruct ed regarding Anticoagulation therapy & regimen. See Lab/Flowsheet for provider collaboration. 12/31/2024 [facility] (current) use of anticoagulants (ICD-10 - Z79.01) Outreach to patient reviewed/instruct ed regarding Anticoagulation therapy & regimen. See Lab/Flowsheet for provider collaboration. 01/06/2025 long term care pharmacist (current) use of anticoagulants (ICD-10 - Z79.01) Outreach to patient reviewed/instruct ed regarding Anticoagulation therapy & regimen. See Lab/Flowsheet for provider collaboration. 01/18/2025 Generalized osteoarthritis (ICD-10 - M15.9) 01/27/2025 [facility] (current) use of anticoagulants (ICD-10 - Z79.01) Outreach to patient reviewed/instruct ed regarding Anticoagulation therapy & regimen. See Lab/Flowsheet for provider collaboration. 02/18/2025 long term care pharmacist (current) use of anticoagulants (ICD-10 - Z79.01) Outreach to patient reviewed/instruct ed regarding Anticoagulation therapy & regimen. See Lab/Flowsheet for provider collaboration. 03/05/2025 Generalized osteoarthritis (ICD-10 - M15.9) 04/12/2025 Generalized osteoarthritis (ICD-10 - M15.9) 04/14/2025 long term care pharmacist (current) use of anticoagulants (ICD-10 - Z79.01) Outreach to patient reviewed/instruct ed regarding Anticoagulation therapy & regimen. See Lab/Flowsheet for provider collaboration. 06/08/2024 Essential (primary) hypertension (ICD-10 - I10) 1. Hypertension: Stable on present regimen. No changes made today 2. Paroxysmal atrial fibrillation: Stable since ablation. Anticoagulation stable on Coumadin 3. Peripheral arterial disease: Recent vascular assessment with stable findings. No changes made to medical regimen 4. cervical degenerative disc disease: Stable on tramadol 5. Hyperlipidemia: Stable on Crestor 6. Gastroesophageal reflux: Reasonable control on Protonix and sucralfate 7. Osteoporosis: Has not been taking alendronate. Will retry today 8. Prediabetes: We will recheck A1c with dietary efforts. Last was 6.1 06/08/2024 Paroxysmal atrial fibrillation (ICD-10 - I48.0) 1. Hypertension: Stable on present regimen. No changes made today 2. Paroxysmal atrial fibrillation: Stable since ablation. Anticoagulation stable on Coumadin 3. Peripheral arterial disease: Recent vascular assessment with stable findings. No changes made to medical regimen 4. cervical degenerative disc disease: Stable on tramadol 5. Hyperlipidemia: Stable on Crestor 6. Gastroesophageal reflux: Reasonable control on Protonix and sucralfate 7. Osteoporosis: Has not been taking alendronate. Will retry today 8. Prediabetes: We will recheck A1c with dietary efforts. Last was 6.1 11/23/2024 PAD (peripheral artery disease) (ICD-10 - I73.9) 1. Hypertension: Well-controlled on present therapy. No changes made today 2. Paroxysmal atrial fibrillation: Stable without evidence of recurrence. Continues on anticoagulation and is checking regularly 3. Peripheral arterial disease: Stable after revascularization . Will continue to follow closely with vascular surgery 4. History of breast cancer: Mammogram is up-to-date. 5. Gerd: Stable on present pantoprazole and sucralfate. No changes made today 08/20/2024 Encounter for therapeutic drug level monitoring (ICD-10 - Z51.81) 08/13/2024 Encounter for therapeutic drug level monitoring (ICD-10 - Z51.81) 08/27/2024 Encounter for therapeutic drug level monitoring (ICD-10 - Z51.81) 08/05/2024 Encounter for therapeutic drug level monitoring (ICD-10 - Z51.81) 09/04/2024 Encounter for therapeutic drug level monitoring (ICD-10 - Z51.81) 09/11/2024 Encounter for therapeutic drug level monitoring (ICD-10 - Z51.81) 09/17/2024 Encounter for therapeutic drug level monitoring (ICD-10 - Z51.81) 09/25/2024 Encounter for therapeutic drug level monitoring (ICD-10 - Z51.81) 10/07/2024 Encounter for therapeutic drug level monitoring (ICD-10 - Z51.81) 10/21/2024 Encounter for therapeutic drug level monitoring (ICD-10 - Z51.81) 11/12/2024 Encounter for therapeutic drug level monitoring (ICD-10 - Z51.81) 11/20/2024 Encounter for therapeutic drug level monitoring (ICD-10 - Z51.81) 03/09/2025 Secondary hypercoagulable state (ICD-10 - D68.69) 1. Hypertension: Stable on current metoprolol, hydralazine and amlodipine. No changes made today 2. Paroxysmal atrial fibrillation: No obvious recurrence since last ablation. Continues on anticoagulation with Coumadin 3. Hyperlipidemia: Will update profile on current Crestor 4. Peripheral arterial disease: Follows with vascular. No current claudication 5. Gastroesophageal reflux: Stable on current pantoprazole and Carafate. Will continue same 6. History of breast cancer: Stable without evidence of recurrence. Mammogram is up-to-date 7. Generalized osteoarthritis: Stable with tramadol which she uses as directed without adverse effect 8. Osteoporosis: Stable on alendronate. Bone density was done in June 17. Routine healthcare maintenance: Mammogram is up-to-date. GI told her she does not need further colonoscopies. She will update fasting blood work 12/02/2024 Encounter for therapeutic drug level monitoring (ICD-10 - Z51.81) 12/24/2024 Encounter for therapeutic drug level monitoring (ICD-10 - Z51.81) 12/31/2024 Encounter for therapeutic drug level monitoring (ICD-10 - Z51.81) 01/06/2025 Encounter for therapeutic drug level monitoring (ICD-10 - Z51.81) 01/27/2025 Encounter for therapeutic drug level monitoring (ICD-10 - Z51.81) 02/18/2025 Encounter for therapeutic drug level monitoring (ICD-10 - Z51.81) 04/14/2025 Encounter for therapeutic drug level monitoring (ICD-10 - Z51.81) 06/08/2024 PAD (peripheral artery disease) (ICD-10 - I73.9) 1. Hypertension: Stable on present regimen. No changes made today 2. Paroxysmal atrial fibrillation: Stable since ablation. Anticoagulation stable on Coumadin 3. Peripheral arterial disease: Recent vascular assessment with stable findings. No changes made to medical regimen 4. cervical degenerative disc disease: Stable on tramadol 5. Hyperlipidemia: Stable on Crestor 6. Gastroesophageal reflux: Reasonable control on Protonix and sucralfate 7. Osteoporosis: Has not been taking alendronate. Will retry today 8. Prediabetes: We will recheck A1c with dietary efforts. Last was 6.1 07/23/2024 Encounter for therapeutic drug level monitoring (ICD-10 - Z51.81) 07/09/2024 Encounter for therapeutic drug level monitoring (ICD-10 - Z51.81) 07/02/2024 Encounter for therapeutic drug level monitoring (ICD-10 - Z51.81) 04/30/2024 Encounter for therapeutic drug level monitoring (ICD-10 - Z51.81) 05/28/2024 Encounter for therapeutic drug level monitoring (ICD-10 - Z51.81) 06/25/2024 Encounter for therapeutic drug level monitoring (ICD-10 - Z51.81) 08/18/2024 Secondary hypercoagulable state (ICD-10 - D68.69) 1. Hypertension: Well-controlled on present therapy. No changes made today 2. Paroxysmal atrial fibrillation: No recurrence since last ablation. Stable anticoagulation 3. Gastroesophageal reflux: Stable on current antacid therapy. No changes made today 4.Osteopenia: Follow on alendronate - hip findings most pronounced 08/18/2024 Gastroesophageal reflux disease with esophagitis without hemorrhage (ICD-10 - K21.00) 1. Hypertension: Well-controlled on present therapy. No changes made today 2. Paroxysmal atrial fibrillation: No recurrence since last ablation. Stable anticoagulation 3. Gastroesophageal reflux: Stable on current antacid therapy. No changes made today 4.Osteopenia: Follow on alendronate - hip findings most pronounced 11/23/2024 History of breast cancer (ICD-10 - Z85.3) 1. Hypertension: Well-controlled on present therapy. No changes made today 2. Paroxysmal atrial fibrillation: Stable without evidence of recurrence. Continues on anticoagulation and is checking regularly 3. Peripheral arterial disease: Stable after revascularization . Will continue to follow closely with vascular surgery 4. History of breast cancer: Mammogram is up-to-date. 5. Gerd: Stable on present pantoprazole and sucralfate. No changes made today 03/09/2025 Mixed hyperlipidemia (ICD-10 - E78.2) 1. Hypertension: Stable on current metoprolol, hydralazine and amlodipine. No changes made today 2. Paroxysmal atrial fibrillation: No obvious recurrence since last ablation. Continues on anticoagulation with Coumadin 3. Hyperlipidemia: Will update profile on current Crestor 4. Peripheral arterial disease: Follows with vascular. No current claudication 5. Gastroesophageal reflux: Stable on current pantoprazole and Carafate. Will continue same 6. History of breast cancer: Stable without evidence of recurrence. Mammogram is up-to-date 7. Generalized osteoarthritis: Stable with tramadol which she uses as directed without adverse effect 8. Osteoporosis: Stable on alendronate. Bone density was done in June 17. Routine healthcare maintenance: Mammogram is up-to-date. GI told her she does not need further colonoscopies. She will update fasting blood work 06/08/2024 Degenerative disc disease, cervical (ICD-10 - M50.30) 1. Hypertension: Stable on present regimen. No changes made today 2. Paroxysmal atrial fibrillation: Stable since ablation. Anticoagulation stable on Coumadin 3. Peripheral arterial disease: Recent vascular assessment with stable findings. No changes made to medical regimen 4. cervical degenerative disc disease: Stable on tramadol 5. Hyperlipidemia: Stable on Crestor 6. Gastroesophageal reflux: Reasonable control on Protonix and sucralfate 7. Osteoporosis: Has not been taking alendronate. Will retry today 8. Prediabetes: We will recheck A1c with dietary efforts. Last was 6.1 11/23/2024 Gastroesophageal reflux disease with esophagitis without hemorrhage (ICD-10 - K21.00) 1. Hypertension: Well-controlled on present therapy. No changes made today 2. Paroxysmal atrial fibrillation: Stable without evidence of recurrence. Continues on anticoagulation and is checking regularly 3. Peripheral arterial disease: Stable after revascularization . Will continue to follow closely with vascular surgery 4. History of breast cancer: Mammogram is up-to-date. 5. Gerd: Stable on present pantoprazole and sucralfate. No changes made today 03/09/2025 PAD (peripheral artery disease) (ICD-10 - I73.9) 1. Hypertension: Stable on current metoprolol, hydralazine and amlodipine. No changes made today 2. Paroxysmal atrial fibrillation: No obvious recurrence since last ablation. Continues on anticoagulation with Coumadin 3. Hyperlipidemia: Will update profile on current Crestor 4. Peripheral arterial disease: Follows with vascular. No current claudication 5. Gastroesophageal reflux: Stable on current pantoprazole and Carafate. Will continue same 6. History of breast cancer: Stable without evidence of recurrence. Mammogram is up-to-date 7. Generalized osteoarthritis: Stable with tramadol which she uses as directed without adverse effect 8. Osteoporosis: Stable on alendronate. Bone density was done in June 17. Routine healthcare maintenance: Mammogram is up-to-date. GI told her she does not need further colonoscopies. She will update fasting blood work 08/18/2024 Other specified disorders of bone density and structure, unspecified site (ICD-10 - M85.80) 1. Hypertension: Well-controlled on present therapy. No changes made today 2. Paroxysmal atrial fibrillation: No recurrence since last ablation. Stable anticoagulation 3. Gastroesophageal reflux: Stable on current antacid therapy. No changes made today 4.Osteopenia: Follow on alendronate - hip findings most pronounced 06/08/2024 Mixed hyperlipidemia (ICD-10 - E78.2) 1. Hypertension: Stable on present regimen. No changes made today 2. Paroxysmal atrial fibrillation: Stable since ablation. Anticoagulation stable on Coumadin 3. Peripheral arterial disease: Recent vascular assessment with stable findings. No changes made to medical regimen 4. cervical degenerative disc disease: Stable on tramadol 5. Hyperlipidemia: Stable on Crestor 6. Gastroesophageal reflux: Reasonable control on Protonix and sucralfate 7. Osteoporosis: Has not been taking alendronate. Will retry today 8. Prediabetes: We will recheck A1c with dietary efforts. Last was 6.1 03/09/2025 Gastroesophageal reflux disease with esophagitis without hemorrhage (ICD-10 - K21.00) 1. Hypertension: Stable on current metoprolol, hydralazine and amlodipine. No changes made today 2. Paroxysmal atrial fibrillation: No obvious recurrence since last ablation. Continues on anticoagulation with Coumadin 3. Hyperlipidemia: Will update profile on current Crestor 4. Peripheral arterial disease: Follows with vascular. No current claudication 5. Gastroesophageal reflux: Stable on current pantoprazole and Carafate. Will continue same 6. History of breast cancer: Stable without evidence of recurrence. Mammogram is up-to-date 7. Generalized osteoarthritis: Stable with tramadol which she uses as directed without adverse effect 8. Osteoporosis: Stable on alendronate. Bone density was done in June 17. Routine healthcare maintenance: Mammogram is up-to-date. GI told her she does not need further colonoscopies. She will update fasting blood work 08/18/2024 Asymptomatic menopausal state (ICD-10 - Z78.0) 1. Hypertension: Well-controlled on present therapy. No changes made today 2. Paroxysmal atrial fibrillation: No recurrence since last ablation. Stable anticoagulation 3. Gastroesophageal reflux: Stable on current antacid therapy. No changes made today 4.Osteopenia: Follow on alendronate - hip findings most pronounced 06/08/2024 Gastroesophageal reflux disease with esophagitis without hemorrhage (ICD-10 - K21.00) 1. Hypertension: Stable on present regimen. No changes made today 2. Paroxysmal atrial fibrillation: Stable since ablation. Anticoagulation stable on Coumadin 3. Peripheral arterial disease: Recent vascular assessment with stable findings. No changes made to medical regimen 4. cervical degenerative disc disease: Stable on tramadol 5. Hyperlipidemia: Stable on Crestor 6. Gastroesophageal reflux: Reasonable control on Protonix and sucralfate 7. Osteoporosis: Has not been taking alendronate. Will retry today 8. Prediabetes: We will recheck A1c with dietary efforts. Last was 6.1 03/09/2025 History of breast cancer (ICD-10 - Z85.3) 1. Hypertension: Stable on current metoprolol, hydralazine and amlodipine. No changes made today 2. Paroxysmal atrial fibrillation: No obvious recurrence since last ablation. Continues on anticoagulation with Coumadin 3. Hyperlipidemia: Will update profile on current Crestor 4. Peripheral arterial disease: Follows with vascular. No current claudication 5. Gastroesophageal reflux: Stable on current pantoprazole and Carafate. Will continue same 6. History of breast cancer: Stable without evidence of recurrence. Mammogram is up-to-date 7. Generalized osteoarthritis: Stable with tramadol which she uses as directed without adverse effect 8. Osteoporosis: Stable on alendronate. Bone density was done in June 17. Routine healthcare maintenance: Mammogram is up-to-date. GI told her she does not need further colonoscopies. She will update fasting blood work 06/08/2024 Postmenopausal osteoporosis (ICD-10 - M81.0) 1. Hypertension: Stable on present regimen. No changes made today 2. Paroxysmal atrial fibrillation: Stable since ablation. Anticoagulation stable on Coumadin 3. Peripheral arterial disease: Recent vascular assessment with stable findings. No changes made to medical regimen 4. cervical degenerative disc disease: Stable on tramadol 5. Hyperlipidemia: Stable on Crestor 6. Gastroesophageal reflux: Reasonable control on Protonix and sucralfate 7. Osteoporosis: Has not been taking alendronate. Will retry today 8. Prediabetes: We will recheck A1c with dietary efforts. Last was 6.1 03/09/2025 Generalized osteoarthritis (ICD-10 - M15.9) 1. Hypertension: Stable on current metoprolol, hydralazine and amlodipine. No changes made today 2. Paroxysmal atrial fibrillation: No obvious recurrence since last ablation. Continues on anticoagulation with Coumadin 3. Hyperlipidemia: Will update profile on current Crestor 4. Peripheral arterial disease: Follows with vascular. No current claudication 5. Gastroesophageal reflux: Stable on current pantoprazole and Carafate. Will continue same 6. History of breast cancer: Stable without evidence of recurrence. Mammogram is up-to-date 7. Generalized osteoarthritis: Stable with tramadol which she uses as directed without adverse effect 8. Osteoporosis: Stable on alendronate. Bone density was done in June 17. Routine healthcare maintenance: Mammogram is up-to-date. GI told her she does not need further colonoscopies. She will update fasting blood work 06/08/2024 Prediabetes (ICD-10 - R73.03) 1. Hypertension: Stable on present regimen. No changes made today 2. Paroxysmal atrial fibrillation: Stable since ablation. Anticoagulation stable on Coumadin 3. Peripheral arterial disease: Recent vascular assessment with stable findings. No changes made to medical regimen 4. cervical degenerative disc disease: Stable on tramadol 5. Hyperlipidemia: Stable on Crestor 6. Gastroesophageal reflux: Reasonable control on Protonix and sucralfate 7. Osteoporosis: Has not been taking alendronate. Will retry today 8. Prediabetes: We will recheck A1c with dietary efforts. Last was 6.1 03/09/2025 Postmenopausal osteoporosis (ICD-10 - M81.0) 1. Hypertension: Stable on current metoprolol, hydralazine and amlodipine. No changes made today 2. Paroxysmal atrial fibrillation: No obvious recurrence since last ablation. Continues on anticoagulation with Coumadin 3. Hyperlipidemia: Will update profile on current Crestor 4. Peripheral arterial disease: Follows with vascular. No current claudication 5. Gastroesophageal reflux: Stable on current pantoprazole and Carafate. Will continue same 6. History of breast cancer: Stable without evidence of recurrence. Mammogram is up-to-date 7. Generalized osteoarthritis: Stable with tramadol which she uses as directed without adverse effect 8. Osteoporosis: Stable on alendronate. Bone density was done in June 17. Routine healthcare maintenance: Mammogram is up-to-date. GI told her she does not need further colonoscopies. She will update fasting blood work 03/09/2025 Encounter for general adult medical examination with abnormal findings (ICD-10 - Z00.01) 1. Hypertension: Stable on current metoprolol, hydralazine and amlodipine. No changes made today 2. Paroxysmal atrial fibrillation: No obvious recurrence since last ablation. Continues on anticoagulation with Coumadin 3. Hyperlipidemia: Will update profile on current Crestor 4. Peripheral arterial disease: Follows with vascular. No current claudication 5. Gastroesophageal reflux: Stable on current pantoprazole and Carafate. Will continue same 6. History of breast cancer: Stable without evidence of recurrence. Mammogram is up-to-date 7. Generalized osteoarthritis: Stable with tramadol which she uses as directed without adverse effect 8. Osteoporosis: Stable on alendronate. Bone density was done in June 17. Routine healthcare maintenance: Mammogram is up-to-date. GI told her she does not need further colonoscopies. She will update fasting blood work PLAN OF TREATMENT Pending Test Test Name Order Date PT/INR 03/13/2023 Mammogram Diagnostic Left Br east, Perform ultrasound guided aspiration and/or breast biopsy if warranted 07/15/2023 LDCT Chest 04/08/2025 Future Test Test Name Order Date LIPID PANEL 11/13/2023 CBC (COMPLETE BLOOD COUNT) 11/13/2023 COMPREHENSIVE METABOLIC PANEL 11/13/2023 MICROALBUMIN URINE 11/13/2023 Hemoglobin [id number] 12/12/2023 Next Appt Details Provider Name:BIA Davis DESIREE , 06/11/2025 11:15:00 AM, [address] [place], [address], Insurance Providers Payer Name Payer Address Payer Phone Subscriber Number Group Number Insured Name Patient Relationship to Insured Coverage Start Date Coverage End Date MEDICARE [employer] [address] [place] [address] [id number] AVANI HAMMER Self - patient is the insured 2 [employer] [address] [place] [address] [phone] [id number] AVANI HAMMER Self - patient is the insured 2 MEDICAL (GENERAL) HISTORY Medical History History ICD Code Arthritis blood clots hypercholesterolemia Gout headaches hypertension ulcers atrial fibrillation PAD HCP: Danielle Alvarez Right breast Cancer - lumpectomy, chemo 2017 Surgical History Surgery Date(Month/Year) Pacemaker 2013 Breast Cancer - Right Lumpectomy 2016 Pelvic Abscess 1970 atrial fibrillaion ablation via pulmonar y vein isolation 02/19/2017 atrial fibrillation cardiac pacemaker Angiogram/TPA 09/30 repeat stet 11/28Right leg ischemia 2021 PAD right femoral tibial redo bypass 04/11 PAD left LAYBOY TENDER endarterectomy and patch angioplasty, right fem- pop bypass 09/22/14
--- OUTSIDE RECORDS SUMMARY | 2025-04-19 12:40 | XMS_ITS | Patient Health Record ---
Author Organization [facility] Address [address] [place] [address] Care Team Providers Care Store Manager Name Role Phone Joss Weinberg MD Primary Care Provider Guillermo Avelar Unavailable [phone] Allergies Allergen (clinical drug ingredient) Drug/Non Drug Allergy documented on EMR Reaction Allergy Type Onset Date Status Qryfssc-Uohwhn-Cfznq Pertussis Unknown Drug Allergy Active aspirin Aspirin Unknown Drug Allergy Active Reason For Referral No Information Medications Medication SIG (Take, Route, Frequency, Duration) Notes Start Date End Date Status Arthrotec 75-0.2 MG 1 tablet Orally Twic e a day Active PriLOSEC 20 MG 1 capsule Orally Onc e a day Active Amlodipine & Diet Manage Prod 2.5 MG Orally Active Metoprolol & Diet Manage Prod 50 MG Orally Active Crestor 10 MG 1 tablet Orally Once a day Active Colyte w Flavor Packs 240 GM as directed Orally as directed for 1 day(s) 01/19/2014 Active Problems Problem Type SNOMED Code ICD Code Onset Dates Problem Status W/U Status Risk Notes Problem Colon cancer screening (104341596) Colon cancer screening (V76.51) Active confirmed Problem Gastroesophageal reflux disease (515129924) GERD (gastroesopha geal reflux disease) (530.81) Active confirmed Plan Of Treatment Future Test Test Name Order Date UPPER GI ENDOSCOPY 01/19/2014 COLONOSCOPY 01/19/2014 Insurance Providers Payer Name Payer Address Payer Phone Subscriber Number Group Number Insured Name Patient Relationship to Insured Coverage Start Date Coverage End Date MEDICARE OF [place] [address] [place] [phone] [id number] ADRIANMARLENIAVANI OWENS Self - patient is the insured [employer] CLAIMS [address] [place] [phone] [id number] AVANI HAMMER Self - patient is the insured Medical (General) History Medical History History ICD Code Screening colonoscopy 6-16-2 004--neg. except for diverticulosis and internal hemorrhoids diverticulitis in 2006-treated with anti biotics HTN Denies TN,DM,CVA,renal disease Hyperlipidemia COPD Arthritis GERD
--- OUTSIDE RECORDS SUMMARY | 2025-04-19 12:40 | XMS_ITS | Patient Health Record ---
Author Organization [facility] Address [address] [place] [address] Care Team Providers Care Tax Services Professional Name Role Phone Joss Weinberg MD Primary Care Provider Unavailab Carloz Kwongmie Unavailable [phone] Allergies Allergen (clinical drug ingredient) Drug/Non Drug Allergy documented on EMR Reaction Allergy Type Onset Date Status aspirin Aspirin Unknown Drug Allergy Active Tetanus Unknown Drug Allergy Active Reason For Referral No Information Medications Medication SIG (Take, Route, Frequency, Duration) Notes Start Date End Date Status Acetaminophen-Codeine #2 300-15 MG 1 tablet as needed Orally every4- 6 hrs; Duration: as needed 02/25/2013 Active amLODIPine Besylate 10 MG 1 tablet Orall y Twice a day; Duration: 30 day(s) Active Amlodipine & Diet Manage Prod 2.5 MG as directed Orally Active Crestor 10 MG 1 tablet Orally Once a day; Duration: 30 day(s) Active Arthrotec 50-200 MG-MCG 1 tablet Orally Twice a day; Duration: 30 day(s) Active PriLOSEC 20 MG 1 capsule Orally Onc e a day; Duration: 30 day(s) Active Metoprolol & Diet Manage Prod 50 MG as directed Orally Active Social History Tobacco use other than smoking: Question Answer Notes Are you an other tobacco user? No Problems Problem Type SNOMED Code ICD Code Onset Dates Problem Status W/U Status Risk Notes Problem Onychomycosis (965911410) Onychomycosis (110.1) Active confirmed Problem Ingrowing nail (829428626) Ingrowing Nail (703.0) Active confirmed Problem Pain in limb (47345558) Pain in Limb (729.5) Active confirmed Plan Of Treatment Pending Test Test Name Order Date [id number] NAIL, 6 OR MORE 02/25/2013 [id number] NAIL, 6 OR MORE 05/27/2013 28695-Mgfokemk Plate 03/16/2013 53486-Rxewefcg Plate 05/27/2013 57846-Hkbzgufv Plate Each Additional 18807-POE 04/06/2013 10573-MCG 02/25/2013 80714-PBO 07/29/2013 15876-RCU 10/12/2013 48312- Debride <25 sq cm 08/26/2013 22923- Debride <25 sq cm 10/12/2013 05544- Debride <25 sq cm 04/06/2013 05520- Debride <25 sq cm 04/29/2013 48059- Debride <25 sq cm 05/27/2013 45657- Debride <25 sq cm 01/14/2014 53502-PIPHNCO SKIN/TISSUE 04/29/2013 63778-RUNJPPW SKIN/TISSUE 03/16/2013 19464-TIYBNJN SKIN/TISSUE 08/12/2013 72124-LZSGBRT SKIN/TISSUE 10/28/2013 20385-JJBTTFA SKIN/TISSUE 11/19/2013 86923-ZQZXLFY SKIN/TISSUE 12/21/2013 Insurance Providers Payer Name Payer Address Payer Phone Subscriber Number Group Number Insured Name Patient Relationship to Insured Coverage Start Date Coverage End Date Medicare National Govt Sv[employer] [address] [place] [address] [id number] Shonda Kelly Self - patient is the insured [employer] Blue [employer] [address] [place] [address] [id number] Shonda Kelly Self - patient is the insured Medical (General) History Medical History History ICD Code Arthritis diverticulosis Gout hypertension sinus conditions stomach ulcer chicken pox measles mumps Surgical History Surgery Date(Month/Year) arm vaginal surgery cataract removal bilateral
--- OUTSIDE RECORDS SUMMARY | 2025-04-19 12:40 | XMS_ITS | Clinical Summary ---
Author Organization [address] [place] [address] Address [address] [place] [address] Phone Care Team Providers Care Relationship Assoc Name Role Phone Joss Weinberg MD Primary Care Provider [phone] Allergies Active Allergy Reactions Criticality Noted Date [...] Overview (08/09/2024): Last Assessment & Plan: Ms. Hammer is a 76 yr. female S/P Robotic [...] any questions or concerns. 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 12/15/2018 Encounters Date Type Department Care Team Description 04/08/2025 Telephone Thoracic Surgery - [place] [address] [place] [address] Marilee Sherman RN 03/24/2025 7:25 AM EDT Ancillary Procedure [facility] [address] [facility] [address] [place] [address] 03/01/2025 2:35 PM EDT Ancillary Procedure [facility] [address] [place] [address] from Last 3 Months Surgical History Surgery Date Site/Laterality Comments OTHER SURGICAL HISTORY PROCEDURE: HISTORICAL THYRO-DUCTAL CYST REMOVAL; COMMENT: cyst removal unfer right arm OTHER SURGICAL HISTORY PROCEDURE: CHG BLOOD CLOT RETRACTION; COMMENT: blood clot removed from left groin put in a stent OTHER SURGICAL HISTORY PROCEDURE: FL EXC CYST/ABERRANT BREAST TISSUE OPEN 1/> LESION; COMMENT: right side 07/12/2017 OTHER SURGICAL HISTORY PROCEDURE: SUPPLY OF CHEMOTHERAPY AGENT; COMMENT: cumulative dose of adriamycin OTHER SURGICAL HISTORY 02/19/2017 Right PROCEDURE: HISTORICAL FEM/POPLITEAL BY LEG SURGERY 2013 Left PROCEDURE: HISTORICAL LEG SURGERY; COMMENT: fem-iliac stent placement PACEMAKER IMPLANT 10/2014 PROCEDURE: HISTORICAL PACEMAKER; COMMENT: afib with conversion pauses; dual chamber OTHER SURGICAL HISTORY 10/11/2021 PROCEDURE: FL REVASCULARIZATION ILIAC ARTERY ANGIOP 1ST VSL; COMMENT: Angioplasty, iliac art, unilat, initial vessel OTHER SURGICAL HISTORY 10/11/2021 PROCEDURE: FL REVSC OPN/PRG FEM/POP W/ANGIOPLASTY UNI; COMMENT: Angioplasty, femoral, popliteal art(s), unilat OTHER SURGICAL HISTORY 10/11/2021 PROCEDURE: FL CESSATION THROMBOLYTIC THER W/CATHETER REMOVAL OTHER SURGICAL HISTORY 10/10/2021 PROCEDURE: FL THROMBOLYSIS ARTERIAL INFUSION ICRA RS&I INIT TX OTHER SURGICAL HISTORY 10/10/2021 PROCEDURE: ULTRASOUND GUIDANCE FOR VASCULAR AC OTHER SURGICAL HISTORY 11/29/2021 PROCEDURE: FL THROMBOLYSIS ARTERIAL INFUSION ICRA RS&I INIT TX OTHER SURGICAL HISTORY 11/29/2021 PROCEDURE: ULTRASOUND GUIDANCE FOR VASCULAR AC OTHER SURGICAL HISTORY 11/30/2021 PROCEDURE: FL REVSC OPN/PRQ FEM/POP W/STNT/ANGIOP SM VSL OTHER SURGICAL HISTORY 11/30/2021 PROCEDURE: FL CESSATION THROMBOLYTIC THER W/CATHETER REMOVAL OTHER SURGICAL HISTORY 11/30/2021 PROCEDURE: FL INTRAVASCULAR US NONCORONARY RS&I INTIAL VESSEL OTHER SURGICAL HISTORY 11/30/2021 PROCEDURE: FL INTRAVASCULAR US NONCORONARY RS&I ADDL VESSEL; COMMENT: X3 OTHER SURGICAL HISTORY 01/02/2022 PROCEDURE: FL SLCTV CATHJ 1ST 2ND ORD THRC/BRCH/CPHLC BRNCH OTHER SURGICAL HISTORY 01/02/2022 PROCEDURE: FL SLCTV CATHJ EA 2ND+ ORD THRC/BRCH/CPHLC BRNCH OTHER SURGICAL HISTORY 01/02/2022 PROCEDURE: X-RAY ABDOMINAL AORTA, LEG ARTERIES OTHER SURGICAL HISTORY 01/02/2022 PROCEDURE: X-RAY EXAM OF ARM/LEG ARTERY OTHER SURGICAL HISTORY 01/02/2022 PROCEDURE: ULTRASOUND GUIDANCE FOR VASCULAR AC OTHER SURGICAL HISTORY 03/20/2022 PROCEDURE: FL SLCTV CATHJ 3RD+ ORD SLCTV ABDL PEL/LXTR BRNCH OTHER SURGICAL HISTORY 03/20/2022 PROCEDURE: X-RAY OF ABDOMINAL AORTA OTHER SURGICAL HISTORY 03/20/2022 PROCEDURE: X-RAY EXAM OF ARM/LEG ARTERY OTHER SURGICAL HISTORY 03/20/2022 PROCEDURE: ULTRASOUND GUIDANCE FOR VASCULAR AC OTHER SURGICAL HISTORY 04/11/2022 PROCEDURE: FL ROPRTJ > 1 MO AFTER ORIGINAL OPRATION OTHER SURGICAL HISTORY 04/11/2022 PROCEDURE: FL BYP FEM-ANT TIBL PST TIBL PRONEAL ART/OTH DSTL OTHER SURGICAL HISTORY 04/11/2022 PROCEDURE: FL EXCISION INFECTED GRAFT EXTREMITY OTHER SURGICAL HISTORY PROCEDURE: FL BYPASS W/VEIN FEMORAL-FEMORAL; COMMENT: tibial OTHER SURGICAL HISTORY 02/2020 PROCEDURE: FL ANES CARDIAC ELECTROPHYSIOL STDY W/RF ABLATION OTHER SURGICAL HISTORY 09/2014 PROCEDURE: HISTORY OTHER; COMMENT: Left common femoral endarterectomy with patch angioplasty BREAST LUMPECTOMY Right PROCEDURE: HISTORICAL BREAST LUMPECTOMY OTHER SURGICAL HISTORY 07/31/2022 Right PROCEDURE: FL RESCJ&BRONCHOPLASTY PFRMD TM LOBEC/SGMECTOMY; COMMENT: VATS (Da [...] CO MMENT: 2014 SSS Sick sinus syndrome (CMS/HCC V24, CMS/HCC V28) 08/21/2019 DX:Sick sinus syndrome (HCC) ; COMMENT: 2014 S/p pacemaker Acid reflux 08/21/2019 DX:Acid reflux Bilateral carotid artery stenosis 12/15/2018 DX:Bilateral carotid artery stenosis PAD (peripheral artery disea se) ([facility] V24) 12/15/2018 DX:PAD (peripheral artery di sease) ([facility]) Varicose veins of bilateral lower extremities with pain 12/15/2018 DX:Varicose veins of bilater al lower extremities with pain Ischemia of right lower extremity DX:Ischemia of right lower extremity Breast cancer ([facility] V24, [facility] V28) 07/16/2022 DX:Breast cancer (HCC) Multiple gastric [...] Info) Description 05/21/2025 1:00 PM EDT Appointment [facility] Ultrasound [address] [place] [address] 06/23/2025 3:30 PM EDT Office Visit Vascular Surgery - [place] [address] [place] [address] Hui Guerra MD [address] [place] [address] 10/11/2025 10:00 AM EST Ancillary Procedure [facility] [address] [facility] [address] [place] [address] Health Maintenance Due Date Last Done Comments DTaP,Tdap,and Td Vaccines (1 - Tdap) 1964 Zoster Vaccines (1 of 2) 1964 Pneumococcal Vaccine: 50+ Years (2 of 2 - PPSV23) 11/15/2017 11/15/2016 RSV Immunization Adult Patients (1 - 1-dose 75+ series) 2021 Cholesterol Screening (Lipid Panel) 08/18/2022 Falls Risk Assessment 08/18/2022 Hepatitis C Screening 08/18/2022 Medicare Annual Wellness Visit 08/18/2022 Osteoporosis Screening (Bone Density Screening) 08/18/2022 Social Influencers of Health Screening 08/18/2022 Hypertension/CHF/CAD Annual BMP Blood Test 08/24/2022 COVID-19 Vaccine (2023-2 5 season) 2024 08/01/2021, 01/06/2021, 12/16/2020 Depression Screening 09/09/2024 Influenza Vaccine (#1) 2025 HIB Vaccines Aged Out No longer [...] this topic Medical Devices Implanted Type Area Vinyl Dipper Device Identifier Shelf Expiration Date Model / Serial / Lot Medt-Card Advisholly Adkins Mri [id number] Implanted:10/11 by Francisca Blair MD (Quantity not on file) Cardiac Pacemaker Left: Chest [employer] - CARDIAC RHYTH-CRDM ADVISA MRI [id number] / [id number] / Procedures Procedure Name Priority Date/Time Associated Diagnosis Comments CARDIAC DEVICE CHECK- REMOTE- MURJ Routine 03/24/2025 7:20 AM EDT CARDIAC DEVICE CHECK- REMOTE- MURJ Routine 03/01/2025 2:31 PM EDT from Last 3 Months Results * Cardiac device check - Remote- MURJ (03/24/2025 7:20 AM EDT) Only the most recent of2 resultswithin the time period is included. Date Time Interrogation Session [id number] CV DEVICE CHECK Type Interrogation Session Remote CV DEVICE CHECK Implantable Pulse Generator Vinyl Dipper MDT CV DEVICE CHECK Implantable Pulse Generator Type IPG CV DEVICE CHECK Implantable Pulse Generator Model Advisa MRI [id number] CV DEVICE CHECK Implantable Pulse Generator Serial Number [id number] CV DEVICE CHECK Implantable Pulse Generator Implant Date [id number] CV DEVICE CHECK Battery Remaining Longevity 4.0 CV DEVICE CHECK Battery Voltage 2.850 CV D EVICE CHECK Battery INSTALLATION COORDINATOR Trigger 2.830 CV DEVICE CHECK Battery Status Middle of Service CV DEVICE CHECK Michael Statistic RA Percent Paced 82.77 CV DEVICE CHECK Michael Statistic RV Percent Paced 0.04 CV DEVICE CHECK Atrial Tachy Statistic AT/AF Capron Percent 0.00 CV DEVICE CHECK Lead Channel Sensing Intrinsic Amplitude 3.125 CV DEVICE CHECK Lead Channel Setting Sensing Sensitivity 0.30 CV DEVICE CHECK Lead Channel Impedance Value 456 CV DEVICE CHECK Lead Channel Pacing Threshold Amplitude 1.000 CV DEVICE CHECK Lead Channel Pacing Threshold Pulse Width 0.4 CV DEVICE CHECK Lead Channel RA Pacing Threshold Date 2025-03-15 CV DEVICE CHECK Lead Channel Setting Pacing Amplitude 2.250 CV DEVICE CHECK Lead Channel Setting Pacing Pulse Width 0.4 CV DEVICE CHECK Lead Channel Sensing Intrinsic Amplitude 11.500 CV DEVICE CHECK Lead Channel Setting Sensing Sensitivity 0.90 CV DEVICE CHECK Lead Channel Impedance Value 456 CV DEVICE CHECK Lead Channel Pacing Threshold Amplitude 0.750 CV DEVICE CHECK Lead Channel Pacing Threshold Pulse Width 0.4 CV DEVICE CHECK Lead Channel RV Pacing Threshold Date 2025-03-15 CV DEVICE CHECK Lead Channel Setting Pacing [...] 6 CV DEVICE CHECK Date of Service 2025-06-11 CV DEVICE CHECK Anatomical Region Laterality Modality Device Interroga tion 03/15/2025 4:48 PM EDT Impressions 03/24/2025 7:12 AM EDT Normal Remote: With Events * Normal Device Function * Events or Alerts: 1 * 7 Beat VT * Battery: OK, 4 mos * Sensing, impedance and thresholds reviewed * Programmed parameters reviewed * Presenting rhythm reviewed * Heart Rate Histograms reviewed Narrative Procedure Note Francisca Blair MD - 03/24/2025 IMPRESSION: Normal Remote: With Events * Normal Device Function * Events or Alerts: 1 * 7 Beat VT * Battery: OK, 4 mos * Sensing, impedance and thresholds reviewed * Programmed parameters reviewed * Presenting rhythm reviewed * Heart Rate Histograms reviewed us Francisca Blair MD CV IMPLANTABLE CARDIAC DEV ICE PROCEDURES Final Result from Last 3 Months Insurance MEDICARE [facility] Care Teams Relationship Assoc Relationship Specialty Start Date End Date Joss Weinberg MD [address] [place] [phone] PCP - General Internal Medicine 07/24/24
--- NOTE | 2025-04-19 12:52 | AM.OFFWIN_ITS ---
Intake Vital Signs 3 04/19/25 12:54 Height 5 ft 4.75 in Weight 166 lb BMI 27.8 BP 130/66 Blood Pressure Location Lt brachial Position Sitting Pulse 83 Pulse Source Pulse Oximeter Temp 98.1 F Temp Source Oral Pulse Oximetry (%) 99 Oxygen Delivery Method Room Air Intake Visit Reasons: EP-lt hand index finger cut Intake Note: presents with laceration on left 2nd fingertip Patient Tobacco Use Status: Never used Tobacco Allergies Tetanus Vaccines and Toxoid (TETANUS VACCINES & TOXOID) Allergy (Mild, Verified 04/19/25 12:55) SWELLING influenza virus vaccine, specific (FLU VACCINE) Allergy (Unknown, Verified 04/19/25 12:55) SWELLING, MUSCLE ACHING clopidogrel (From Plavix) Allergy (Verified 04/19/25 12:55) Unknown ibuprofen (From Motrin) Allergy (Verified 04/19/25 12:55) Vomiting dexlansoprazole (DEXLANSOPRAZOLE) Adverse Reaction (Unknown, Verified 04/19/25 12:55) PT HEARS HEART BEAT IN EARS FLU Vaccine Allergy (Mild, Uncoded 10/27/24 09:57) Muscle Pain Tetanus, diptheria, toxoids Allergy (Mild, Uncoded 10/27/24 09:57) Swelling Doxycycline Adverse Reaction (Unknown, Uncoded 10/27/24 09:57) nausea and vomiting Do you need a note to return to daycare/school/sports/work: No HPI HPI Comments 2 History of Present Illness0 Details 79 y/o Female [facility] c/o Cut on the left index finger. She was using the kitchen mike when she accidentally sliced the tip of left index finger. This happened today ~ one hour ago. Denies numbness or tingling to the hands. Normal ROM with TTP at wound. She is allergic to Tetanus vaccine. Ordered Xray of Index finger to r/o Fracture - Preliminary reading by me, no visible fracture seen. Will have Milli HONG) assist me with stitches. [facility] Medical History (Updated 04/19/25 @ 13:50 by Jyoti Jimenez NP) Cut of skin of index finger Personal history of nicotine dependence History of right breast cancer (~2017) History of gastric ulcer History of DVT of lower extremity Surgical History History of lung surgery (07/31/22) History of intravascular stent placement History of cardiac radiofrequency ablation History of lymph node excision History of lumpectomy of right breast Family History Father Melanoma Mother Ovarian cancer, Onset Age: 48 Lung cancer Brother Throat cancer Lung cancer Lymphoma Social History Household Members: Spouse Housing: House Are you a primary skin care instructor to a significant other at home: No Do you presently have visiting nurse or other home services: No Alcohol intake: former Patient Tobacco Use Status: Never used Tobacco Advance Directives Date on File: 06/14/20 service: No Current occupational status: retired 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 Review of Systems Const All systems reviewed & are unremarkable except as noted in HPI and below Physical Exam Vital Signs: Last Vital Signs Temp 98.1 F 04/19/25 12:54 Pulse 83 04/19/25 12:54 BP 130/66 04/19/25 12:54 Pulse Ox 99 04/19/25 12:54 Oxygen Delivery Method Room Air 04/19/25 12:54 BMI result Body Mass Index 27.8 Const General: no acute distress Nutritional Appearance: well nourished Orientation/consciousness: patient oriented x3 Neuro General: patient oriented x3 and moves all extremities Extrem Left upper extremity: hand Details: normal capillary refill, tenderness Location: of the 2nd digit Location: at the distal phalanx, normal ROM of fingers and laceration Hand/finger images: 2 1. clean deep laceration wound, no active bleeding, Aprox 0.5 cm deep by 1 cm long. TTP Psych Speech and movement: Normal speech and movement present Office Procedures AMB Laceration Repair Laceration repair performed by: Milli Newman Explained risks and benefits to parent: Yes Informed consent given: No Location: left index finger Length: 2cm Sedation: No Anesthesia: 1% lidocaine Irrigation: saline Preparation: betadine Deep closure: No Skin closure: nylon Technique: Used #2 simple interrupted sutures to the left 2nd distal fingertip Topical treatment: triple antibiotic Tetanus toxoid ordered: No Patient tolerated procedure: [place] [id number] Repair <2.5cm Procedure code (CPT) selection complete Office Meds lidocaine (PF) 10 mg/mL (1 %) injection solution Performing Provider: Milli Newmna PA-C [place] [facility] [facility] Administered by: Milli Newman PA-C on 04/19/25 14:06 2 Dose Route Admin Location Dispensed Lot Number Expiration Date [employer] 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 Final Reading. Soft tissue injury of the distal tuft. No evidence of fracture of the left index finger. Code(s): S61.218A - Laceration without foreign body of other finger without damage to nail, initial encounter Plan: Milli HONG) assisted me in putting stitches (please refer to the procedure note). Orders: Orders 2 XR finger LT min 2V Today S61.218A - Laceration without foreign body of other finger without damage to nail, initial encounter AMB Laceration Repair Today S61.218A - Laceration without foreign body of other finger without damage to nail, initial encounter Coding Level of Care Code Est Pt Level 5 (15555) Diagnoses Cut of skin of index finger S61.218A CPT Codes Office Procedure - Laceration Repair 1: [id number] Repair <2.5cm ([id number]) Time Spent (min) 30
[2025-04-19 12:54] VITALS: BP 130/66; PULSE 83; TEMP 36.7; O2SAT 99; BMI 27.8
== END 2025-04-19 14:27 | disposition home or self-care (01) ==
PROVIDERS: PCP Internal Medicine; Visit Provider Nurse Practitioner Family
DX: S61.211A Laceration without foreign body of left index finger without damage to nail, initial encounter (principal)

== ENCOUNTER 2025-04-19 12:35 | Outpatient (REF) | payer MEDICARE, SELFPAY ==
--- NOTE | ~2025-04-19 | XR_ITS ---
EXAMINATION: XR FINGERS LEFT HISTORY: S61.218A - Laceration without foreign body of other finger without damage... COMPARISON: There are no prior studies available for comparison. FINDINGS: Three views of the left index finger are submitted. The bones are osteopenic. There is no fracture or dislocation. 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 There is a soft tissue injury of the distal tip. XR/XR finger LT min 2V IMPRESSION: Soft tissue injury of the distal tuft. No evidence of fracture of the left index finger. Electronically signed by: Guillermo Sargent MD 04/19/2025 01:44 PM EDT
== END 2025-04-19 12:36 | disposition home or self-care (01) ==
LOC: HO.HMGCX 12:35
PROVIDERS: PCP Internal Medicine; Visit Provider Nurse Practitioner Family
DX: S61.211A Laceration without foreign body of left index finger without damage to nail, initial encounter (principal); W26.0XXA Contact with knife, initial encounter; Y92.010 Kitchen of single-family (private) house as the place of occurrence of the external cause; Y93.G3 Activity, cooking and baking
CPT/HCPCS: 12001; 73140; 99212; J2003

== ENCOUNTER → 2025-04-19 13:18 | Outpatient (BNV) | payer MEDICARE, SELFPAY | PROVIDERS: PCP Internal Medicine; Visit Provider Radiology Diagnostic Radiology | DX: M19.042 Primary osteoarthritis, left hand (principal) | CPT/HCPCS: 73140 ==

== ENCOUNTER 2025-04-27 10:41 | Outpatient (AMB) | payer MEDICARE, SELFPAY ==
[2025-04-27 11:03] VITALS: BP 122/60; PULSE 88; TEMP 36.9; O2SAT 96; BMI 28.6
--- NOTE | 2025-04-27 11:03 | AM.OFFWIN_ITS ---
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 Required: No Is last menstrual period known: No Post menopausal: Yes Patient : No Allergies Tetanus Vaccines and Toxoid (TETANUS VACCINES & TOXOID) Allergy (Mild, Verified 04/27/25 11:08) SWELLING influenza virus vaccine, specific (FLU VACCINE) Allergy (Unknown, Verified 04/27/25 11:08) SWELLING, MUSCLE ACHING clopidogrel (From Plavix) Allergy (Verified 04/27/25 11:08) Unknown ibuprofen (From Motrin) Allergy (Verified 04/27/25 11:08) Vomiting dexlansoprazole (DEXLANSOPRAZOLE) Adverse Reaction (Unknown, Verified 04/27/25 11:08) PT HEARS HEART BEAT IN EARS FLU Vaccine Allergy (Mild, Uncoded 04/26/25 09:33) Muscle Pain Tetanus, diptheria, toxoids Allergy (Mild, Uncoded 04/26/25 09:33) Swelling Doxycycline Adverse Reaction (Unknown, Uncoded 04/26/25 09:33) nausea and vomiting Do you need a note to return to daycare/school/sports/work: No HPI HPI Comments History of Present Illness Details History of Present Illness - The patient is a 79-year-old female pr esenting with removal of sutures from the left index finger. - The laceration was caused by hedge tri mmers, with the injury occurring 8 days prior. - The patient reports no complications s uch as pain, drainage, or infection since the injury. - Has 2 band-aids on it which are covere d in grease as she just put oil in car, has been keeping it clean and dry otherwise. Physical Exam General: Cooperative, healthy appearing, comfortable, no acute distress and well developed Orientation: Patient oriented x3 Limitations: No limitations Head: Normal to inspection Ears: Hearing grossly normal bilaterally Nose: Normal External nose present Face and sinus: Normal facial exam Eyes: Appearance normal, both eyes and all related structures Neck: Normal visual inspection and Yes full ROM Respiratory: Normal respiratory effort and able to speak in complete sentences. Skin: No rashes or lesions noted Neuro: Patient oriented x3 Extremities: Normal to inspection, except for left index finger with two stitches in place, CDI, no drainage, no erythema, some scabbing present. [facility] Medical History (Updated 04/27/25 @ 11:27 by Adela Angelo PA-C) Cut of skin of index finger Personal history of nicotine dependence History of right breast cancer (~2017) History of gastric ulcer History of DVT of lower extremity Surgical History History of lung surgery (07/31/22) History of intravascular stent placement History of cardiac radiofrequency ablation History of lymph node excision History of lumpectomy of right breast Family History Father Melanoma Mother Ovarian cancer, Onset Age: 48 Lung cancer Brother Throat cancer Lung cancer Lymphoma Social History Household Members: Spouse Housing: House Are you a primary career orientation teacher to a significant other at home: No Do you presently have visiting nurse or other home services: No Alcohol intake: former Patient Tobacco Use Status: Former Tobacco user Advance Directives Date on File: 06/14/20 Patient : No service: No Current occupational status: retired 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 - Keep the wound moist with an emollient to facilitate scab removal. - Monitor for infection signs like fever, pain, or drainage, and return if these symptoms develop. Patient was informed and verbally consented to the use of an ambient scribe for clinic note documentation during this visit. Coding Level of Care Code New Pt Level 2 (73858) Diagnoses Visit for suture removal Z48.02
--- OUTSIDE RECORDS SUMMARY | 2025-04-27 12:08 | XMS_ITS | Clinical Summary ---
Author Organization [address] [place] [address] [address] [place] [address] Phone Care Team Providers Care Communications Senior Associate Name Role Phone Joss Weinberg MD Primary [...] 1 tablet (1 g total) by mouth 3 (three) times a day. 07/07/2019 Active traMADoL (ULTRAM) [...] any questions or concerns. VT (ventricular tachycardia) ([facility] V24, [facility] V28) 07/16/2022 Acid reflux 08/21/2019 Hyperlipidemia 08/21/2019 Hypertension 08/21/2019 Paroxysmal atrial fibrillation ([facility] V24, [facility] V28) 08/21/2019 Sick sinus syndrome ([facility] V24, [facility] V28) 1 10/22/2018 Overview (08/09/2024): 2015 S/p pacemaker Bilateral carotid artery stenosis 12/15/2018 PAD (peripheral artery disease) ([facility] V24) Varicose veins of bilateral lower extremities wi th pain 12/15/2018 Encounters Date Type Department Care Team Description 04/22/2025 12:00 PM EDT Ancillary Procedure [facility] [address] [facility] [address] [place] [address] 04/22/2025 Telephone [facility] [address] [place] [address] Laura Samayoa PA 04/08/2025 Telephone Thoracic Surgery - [address] [place] [phone] Marilee Sherman RN 03/24/2025 7:25 AM EDT Ancillary Procedure [facility] - [address] [place] [address] 03/01/2025 2:35 PM EDT Ancillary Procedure [facility] - [address] [place] [address] from Last 3 Months Surgical History Surgery Date Site/Laterality Comments OTHER SURGICAL HISTORY PROCEDURE: HISTORICAL THYRO-DUCTAL CYST REMOVAL; COMMENT: cyst removal unfer right arm OTHER SURGICAL HISTORY PROCEDURE: CHG BLOOD CLOT RETRACTION; COMMENT: blood clot removed from left groin put in a stent OTHER SURGICAL HISTORY PROCEDURE: WA EXC CYST/ABERRANT BREAST TISSUE OPEN 1/> LESION; COMMENT: right side 07/12/2017 OTHER SURGICAL HISTORY PROCEDURE: SUPPLY OF CHEMOTHERAPY AGENT; COMMENT: cumulative dose of adriamycin OTHER SURGICAL HISTORY 02/19/2017 Right PROCEDURE: HISTORICAL FEM/POPLITEAL BY LEG SURGERY 2013 Left PROCEDURE: HISTORICAL LEG SURGERY; COMMENT: fem-iliac stent placement PACEMAKER IMPLANT 10/2014 PROCEDURE: HISTORICAL PACEMAKER; COMMENT: afib with conversion pauses; dual chamber OTHER SURGICAL HISTORY 10/11/2021 PROCEDURE: WA REVASCULARIZATION ILIAC ARTERY ANGIOP 1ST VSL; COMMENT: Angioplasty, iliac art, unilat, initial vessel OTHER SURGICAL HISTORY 10/11/2021 PROCEDURE: WA REVSC OPN/PRG FEM/POP W/ANGIOPLASTY UNI; COMMENT: Angioplasty, femoral, popliteal art(s), unilat OTHER SURGICAL HISTORY 10/11/2021 PROCEDURE: WA CESSATION THROMBOLYTIC THER W/CATHETER REMOVAL OTHER SURGICAL HISTORY 10/10/2021 PROCEDURE: WA THROMBOLYSIS ARTERIAL INFUSION ICRA RS&I INIT TX OTHER SURGICAL HISTORY 10/10/2021 PROCEDURE: ULTRASOUND GUIDANCE FOR VASCULAR AC OTHER SURGICAL HISTORY 11/29/2021 PROCEDURE: WA THROMBOLYSIS ARTERIAL INFUSION ICRA RS&I INIT TX OTHER SURGICAL HISTORY 11/29/2021 PROCEDURE: ULTRASOUND GUIDANCE FOR VASCULAR AC OTHER SURGICAL HISTORY 11/30/2021 PROCEDURE: WA REVSC OPN/PRQ FEM/POP W/STNT/ANGIOP SM VSL OTHER SURGICAL HISTORY 11/30/2021 PROCEDURE: WA CESSATION THROMBOLYTIC THER W/CATHETER REMOVAL OTHER SURGICAL HISTORY 11/30/2021 PROCEDURE: WA INTRAVASCULAR US NONCORONARY RS&I INTIAL VESSEL OTHER SURGICAL HISTORY 11/30/2021 PROCEDURE: WA INTRAVASCULAR US NONCORONARY RS&I ADDL VESSEL; COMMENT: X3 OTHER SURGICAL HISTORY 01/02/2022 PROCEDURE: WA SLCTV CATHJ 1ST 2ND ORD THRC/BRCH/CPHLC BRNCH OTHER SURGICAL HISTORY 01/02/2022 PROCEDURE: WA SLCTV CATHJ EA 2ND+ ORD THRC/BRCH/CPHLC BRNCH OTHER SURGICAL HISTORY 01/02/2022 PROCEDURE: X-RAY ABDOMINAL AORTA, LEG ARTERIES OTHER SURGICAL HISTORY 01/02/2022 PROCEDURE: X-RAY EXAM OF ARM/LEG ARTERY OTHER SURGICAL HISTORY 01/02/2022 PROCEDURE: ULTRASOUND GUIDANCE FOR VASCULAR AC OTHER SURGICAL HISTORY 03/20/2022 PROCEDURE: WA SLCTV CATHJ 3RD+ ORD SLCTV ABDL PEL/LXTR BRNCH OTHER SURGICAL HISTORY 03/20/2022 PROCEDURE: X-RAY OF ABDOMINAL AORTA OTHER SURGICAL HISTORY 03/20/2022 PROCEDURE: X-RAY EXAM OF ARM/LEG ARTERY OTHER SURGICAL HISTORY 03/20/2022 PROCEDURE: ULTRASOUND GUIDANCE FOR VASCULAR AC OTHER SURGICAL HISTORY 04/11/2022 PROCEDURE: WA ROPRTJ > 1 MO AFTER ORIGINAL OPRATION OTHER SURGICAL HISTORY 04/11/2022 PROCEDURE: WA BYP FEM-ANT TIBL PST TIBL PRONEAL ART/OTH DSTL OTHER SURGICAL HISTORY 04/11/2022 PROCEDURE: WA EXCISION INFECTED GRAFT EXTREMITY OTHER SURGICAL HISTORY PROCEDURE: WA BYPASS W/VEIN FEMORAL-FEMORAL; COMMENT: tibial OTHER SURGICAL HISTORY 02/2020 PROCEDURE: WA ANEKendall CARDIAC ELECTROPHYSIOL STDY W/RF ABLATION OTHER SURGICAL HISTORY 09/2014 PROCEDURE: HISTORY OTHER; COMMENT: Left common femoral endarterectomy with patch angioplasty BREAST LUMPECTOMY Right PROCEDURE: HISTORICAL BREAST LUMPECTOMY OTHER SURGICAL HISTORY 07/31/2022 Right PROCEDURE: WA RESCJ&BRONCHOPLASTY PFRMD TM LOBEC/SGMECTOMY; COMMENT: VATS (Da vinvi RML lobectomy, extensive pneumo lysis, mediastinal lymphadenectomy, bronch w aspiration, placement of On-Q) Medical History Medical History Date Comments Hypertension 08/21/2019 DX:Hypertension Hyperlipidemia 08/21/2019 DX:Hyperlipidemi a Paroxysmal atrial fibrillati on (CMS/HCC V24, [facility] V28) 08/21/2019 DX:Paroxysmal atrial fibril lation (HCC) History of breast cancer 08/21/2019 DX:Hist ory of breast cancer; COMMENT: 2017 chemo Pacemaker 08/21/2019 DX:Pacemaker; CO MMENT: 2014 SSS Sick sinus syndrome ([facility] V24, [facility] V28) 08/21/2019 DX:Sick sinus syndrome ([facility]) ; COMMENT: 2014 S/p pacemaker Acid reflux 08/21/2019 DX:Acid reflux Bilateral carotid artery stenosis 12/15/2018 DX:Bilateral carotid artery stenosis PAD (peripheral artery disea se) ([facility] V24) 12/15/2018 DX:PAD (peripheral artery di sease) ([facility]) Varicose veins of bilateral lower extremities with pain 12/15/2018 DX:Varicose veins of bilater al lower extremities with pain Ischemia of right lower extremity DX:Ischemia of right lower extremity Breast cancer ([facility] V24, [facility] V28) 07/16/2022 DX:Breast cancer ([facility]) Multiple gastric ulcers DX:Multi ple gastric ulcers [...] Info) Description 05/21/2025 1:00 PM EDT Appointment [facility] Ultrasound [address] [place] [phone] 06/22/2025 2:40 PM EDT Office Visit [facility] [address] [facility] [address] [place] [phone] Laura Samayoa PA [address] [facility] [address] [place] [address] 06/23/2025 3:30 PM EDT Office Visit Vascular Surgery - [place] [address] [place] [address] Hui Guerra MD [address] [facility] [address] [place] [address] 10/11/2025 10:00 AM EST Ancillary Procedure [facility] [address] [facility] [address] [place] [phone] Health Maintenance Due Date Last Done Comments [...] 2023-2 5 season) 2024 08/01/2021, 01/06/2021, 12/16/2020 Depression [...] this topic Medical Devices Implanted Type Area Finance And Administration Manager Device Identifier Shelf Expiration Date Model / Serial / Lot Medt-Card Advisa Dr Mccormick [id number] Implanted:10/11 by Francisca Blair MD (Quantity not on file) Cardiac Pacemaker Left: Chest [employer] - CARDIAC RHYTH-CRDM ADVISA DR MCCORMICK [id number] / [id number] / Procedures Procedure Name Priority Date/Time Associated Diagnosis Comments CARDIAC DEVICE CHECK- REMOTE- MURJ Routine 04/22/2025 11:59 AM EDT CARDIAC DEVICE CHECK- REMOTE- MURJ Routine 03/24/2025 7:20 AM EDT CARDIAC DEVICE CHECK- REMOTE- MURJ Routine 03/01/2025 2:31 PM EDT from Last 3 Months Results * Cardiac device check - Remote- MURJ (04/22/2025 11:59 AM EDT) Only the most recent of3 resultswithin the time period is included. Date Time Interrogation Session [id number] CV DEVICE CHECK Type Interrogation Session Remote CV DEVICE CHECK Implantable Pulse Generator Finance And Administration Manager MDT CV DEVICE CHECK Implantable Pulse Generator Type IPG CV DEVICE CHECK Implantable Pulse Generator Model Saumyaa DR MRI [id number] CV DEVICE CHECK Implantable Pulse Generator Serial Number [id number] CV DEVICE CHECK Implantable Pulse Generator Implant Date [id number] CV DEVICE CHECK Battery Remaining Longevity 3.0 CV DEVICE CHECK Battery Voltage 2.840 CV D EVICE CHECK Battery PROCESS SAFETY ENGINEERING TECHNOLOGIST Trigger 2.830 CV DEVICE CHECK Battery Status Middle of Service CV DEVICE CHECK Michael Statistic RA Percent Paced 78.15 CV DEVICE CHECK Michael Statistic RV Percent Paced 0.04 CV DEVICE CHECK Atrial Tachy Statistic AT/AF [place] Percent 0.00 CV DEVICE CHECK Lead Channel Sensing Intrinsic Amplitude 4.250 CV DEVICE CHECK Lead Channel Setting Sensing Sensitivity 0.30 CV DEVICE CHECK Lead Channel Impedance Value 494 CV DEVICE CHECK Lead Channel Pacing Threshold Amplitude 0.875 CV DEVICE CHECK Lead Channel Pacing Threshold Pulse Width 0.4 CV DEVICE CHECK Lead Channel RA Pacing Threshold Date 2025-04-16 CV DEVICE CHECK Lead Channel Setting Pacing Amplitude 2.000 CV DEVICE CHECK Lead Channel Setting Pacing Pulse Width 0.4 CV DEVICE CHECK Lead Channel Sensing Intrinsic Amplitude 15.500 CV DEVICE CHECK Lead Channel Setting Sensing Sensitivity 0.90 CV DEVICE CHECK Lead Channel Impedance Value 513 CV DEVICE CHECK Lead Channel Pacing Threshold Amplitude 0.750 CV DEVICE CHECK Lead Channel Pacing Threshold Pulse Width 0.4 CV DEVICE CHECK Lead Channel RV Pacing Threshold Date 2025-04-16 CV DEVICE CHECK Lead Channel Setting Pacing [...] Anatomical Region Laterality Modality Device Interroga tion 04/16/2025 3:46 PM EDT Impressions 04/22/2025 11:57 AM EDT Normal Remote: With Events * Normal Device Function * Events or Alerts: 1 * 17 beat VT @ 158 bpm 03/28/25 * Battery: OK, 3 mos * Sensing, impedance and thresholds reviewed * Programmed parameters reviewed * Presenting rhythm reviewed * Heart Rate Histograms reviewed Additional Notes: * Monitoring monthly for battery * Narrative Procedure Note Laura Samayoa PA - 04/22/2025 IMPRESSION: Normal Remote: With Events * Normal Device Function * Events or Alerts: 1 * 17 beat VT @ 158 bpm 03/28/25 * Battery: OK, 3 mos * Sensing, impedance and thresholds reviewed * Programmed parameters reviewed * Presenting rhythm reviewed * Heart Rate Histograms reviewed Additional Notes: * Monitoring monthly for battery * Laura GREEN CV IMPLANTABLE CARDIAC DEVICE WA OCEDURES Final Result from Last 3 Months Insurance MEDICARE [facility] Care Teams Communications Senior Associate Relationship Specialty Start Date End Date Joss Weinberg MD [address] [place] [address] PCP - General Internal Medicine 07/24/24
== END 2025-04-27 12:42 | disposition home or self-care (01) ==
PROVIDERS: PCP Internal Medicine; Visit Provider Physician Assistant
DX: Z48.02 Encounter for removal of sutures (principal)

== ENCOUNTER → 2025-04-27 10:41 | Outpatient (BNVA) | payer MEDICARE, SELFPAY | PROVIDERS: PCP Internal Medicine; Visit Provider Physician Assistant | DX: Z48.02 Encounter for removal of sutures (principal) | CPT/HCPCS: 99202 ==

== ENCOUNTER 2025-07-05 11:05 | Outpatient (REF) | payer MEDICARE, SELFPAY ==
--- OUTSIDE RECORDS SUMMARY | 2025-07-05 13:59 | XMS_ITS | Clinical Summary ---
Author Organization [address] [place] [address] Address [address] [place] [address] Phone Care Team Providers Care Rehab Director Occupational Therapist Name Role Phone Joss Weinberg MD Primary Care Provider Allergies Active Allergy Reactions Criticality Noted Date Comments Aspirin Other 12/15/2018 Stomach bleeding Influenza Virus Vaccines 08/09/2024 Tetanus And Diphtheria Toxoids 04/14 Medications acetaminophen (TYLENOL) 500 mg tablet Take 1 tablet (500 mg total) by mouth every 6 (six) hours if needed. 9 Active amLODIPine-nika zepril (LOTREL) 5-10 mg per capsule Take 1 capsule by mouth 1 (one) time each day. 2 Active aspirin 81 mg EC tablet Take 1 tablet (81 mg total) by mouth 1 (one) time each day. Active hydrALAZINE (APRESOLINE) 10 mg tablet Take 1 tablet (10 mg total) by mouth 2 (two) times a day. Active pantoprazole (PROTONIX) 40 mg packet Take by mouth. Active rosuvastatin (CRESTOR) 10 mg tablet Take 2 tablets (20 mg total) by mouth 1 (one) time each day. 9 Active sucralfate (CARAFATE) 1 gram tablet Take 1 tablet (1 g total) by mouth 3 (three) times a day. 9 Active traMADoL (ULTRAM) 50 mg tablet Take 1 tablet (50 mg total) by mouth every 6 (six) hours if needed. Max Daily Amount: 200 mg Active warfarin (COUMADIN) 5 mg tablet Take 1 tablet (5 mg total) by mouth. See Admin Instructions . May cause heavy bleeding. Take at same time every day. Do not change dietary habits. 9 Active metoprolol succinate (TOPROL-XL) 50 mg 24 hr tablet Take 1.5 tablets (75 mg total) by mouth 2 (two) times a day. Do not crush or chew. Active metoprolol succinate (Kapspargo Sprinkle) 50 mg capsule,sprinkl e,ER 24hr Take by mouth. 06/22/20 25 Discontinu ed(Therapy completed) Active Problems Problem Noted Date Diagnosed Date [...] questions or concerns. VT (ventricular tachycardia) ([facility] V24, [facility] V28) 07/16/2022 Acid reflux 08/21/2019 Hyperlipidemia 08/21/2019 Hypertension 08/21/2019 Paroxysmal atrial fibrillation ([facility] V24, [facility] V28) 08/21/2019 Sick sinus syndrome ([facility] V24, [facility] V28) 1 10/22/2018 Overview (08/09/2024): 2015 S/p pacemaker Bilateral carotid artery stenosis 12/15/2018 PAD (peripheral artery disease) ([facility] V24) Varicose veins of bilateral lower extremities wi th pain 12/15/2018 Encounters Date Type Department Care Team Description 06/23/2025 3:30 PM EDT Office Visit Vascular Surgery - [place] [address] [place] [address] Hui Guerra MD PAD (peripheral artery disease) (CMS/HCC V24) (Primary Dx) 06/22/2025 2:40 PM EDT Office Visit [facility] Cardiology [facility] - [address] [place] [address] Laura Samayoa PA Sick sinus syndrome (CMS/HCC V24, CMS/HCC V28) (Primary Dx); Paroxysmal atrial fibrillation (CMS/HCC V24, CMS/HCC V28); VT (ventricular tachycardia) (CMS/HCC V24, CMS/HCC V28); Dyspnea on exertion 06/22/2025 8:15 AM EDT Ancillary Procedure [facility] Cardiology [facility] - [address] [place] [address] 06/21/2025 Telephone [facility] - [address] [place] [address] Francisca Blair MD 05/21/2025 12:36 PM EDT - 05/21/2025 11:59 PM EDT Hospital [facility] Ultrasound [address] [place] [address] Peripheral venous insufficiency; Peripheral vascular disease (CMS/HCC V24) Discharge Disposition: Home or Self Care 05/20/2025 8:35 AM EDT Ancillary Procedure [facility] - [address] [place] [address] 04/22/2025 12:00 PM EDT Ancillary Procedure [facility] - [address] [place] [address] 04/22/2025 Telephone [facility] - [address] [place] [address] Laura Samayoa PA 04/08/2025 Telephone Thoracic Surgery - [place] [address] [place] [phone] Marilee Sherman RN from Last 3 Months Surgical History Surgery Date Site/Laterality Comments OTHER SURGICAL HISTORY PROCEDURE: HISTORICAL THYRO-DUCTAL CYST REMOVAL; COMMENT: cyst removal unfer right arm OTHER SURGICAL HISTORY PROCEDURE: CHG BLOOD CLOT RETRACTION; COMMENT: blood clot removed from left groin put in a stent OTHER SURGICAL HISTORY PROCEDURE: GA EXC CYST/ABERRANT BREAST TISSUE OPEN 1/> LESION; COMMENT: right side 07/12/2017 OTHER SURGICAL HISTORY PROCEDURE: SUPPLY OF CHEMOTHERAPY AGENT; COMMENT: cumulative dose of adriamycin OTHER SURGICAL HISTORY 02/19/2017 Right PROCEDURE: HISTORICAL FEM/POPLITEAL BY LEG SURGERY 2013 Left PROCEDURE: HISTORICAL LEG SURGERY; COMMENT: fem-iliac stent placement PACEMAKER IMPLANT 10/2014 PROCEDURE: HISTORICAL PACEMAKER; COMMENT: afib with conversion pauses; dual chamber OTHER SURGICAL HISTORY 10/11/2021 PROCEDURE: GA REVASCULARIZATION ILIAC ARTERY ANGIOP 1ST VSL; COMMENT: Angioplasty, iliac art, unilat, initial vessel OTHER SURGICAL HISTORY 10/11/2021 PROCEDURE: GA REVSC OPN/PRG FEM/POP W/ANGIOPLASTY UNI; COMMENT: Angioplasty, femoral, popliteal art(s), unilat OTHER SURGICAL HISTORY 10/11/2021 PROCEDURE: GA CESSATION THROMBOLYTIC THER W/CATHETER REMOVAL OTHER SURGICAL HISTORY 10/10/2021 PROCEDURE: GA THROMBOLYSIS ARTERIAL INFUSION ICRA RS&I INIT TX OTHER SURGICAL HISTORY 10/10/2021 PROCEDURE: ULTRASOUND GUIDANCE FOR VASCULAR AC OTHER SURGICAL HISTORY 11/29/2021 PROCEDURE: GA THROMBOLYSIS ARTERIAL INFUSION ICRA RS&I INIT TX OTHER SURGICAL HISTORY 11/29/2021 PROCEDURE: ULTRASOUND GUIDANCE FOR VASCULAR AC OTHER SURGICAL HISTORY 11/30/2021 PROCEDURE: GA REVSC OPN/PRQ FEM/POP W/STNT/ANGIOP SM VSL OTHER SURGICAL HISTORY 11/30/2021 PROCEDURE: GA CESSATION THROMBOLYTIC THER W/CATHETER REMOVAL OTHER SURGICAL HISTORY 11/30/2021 PROCEDURE: GA INTRAVASCULAR US NONCORONARY RS&I INTIAL VESSEL OTHER SURGICAL HISTORY 11/30/2021 PROCEDURE: GA INTRAVASCULAR US NONCORONARY RS&I ADDL VESSEL; COMMENT: X3 OTHER SURGICAL HISTORY 01/02/2022 PROCEDURE: GA SLCTV CATHJ 1ST 2ND ORD THRC/BRCH/CPHLC BRNCH OTHER SURGICAL HISTORY 01/02/2022 PROCEDURE: GA SLCTV CATHJ EA 2ND+ ORD THRC/BRCH/CPHLC BRNCH OTHER SURGICAL HISTORY 01/02/2022 PROCEDURE: X-RAY ABDOMINAL AORTA, LEG ARTERIES OTHER SURGICAL HISTORY 01/02/2022 PROCEDURE: X-RAY EXAM OF ARM/LEG ARTERY OTHER SURGICAL HISTORY 01/02/2022 PROCEDURE: ULTRASOUND GUIDANCE FOR VASCULAR AC OTHER SURGICAL HISTORY 03/20/2022 PROCEDURE: GA SLCTV CATHJ 3RD+ ORD SLCTV ABDL PEL/LXTR BRNCH OTHER SURGICAL HISTORY 03/20/2022 PROCEDURE: X-RAY OF ABDOMINAL AORTA OTHER SURGICAL HISTORY 03/20/2022 PROCEDURE: X-RAY EXAM OF ARM/LEG ARTERY OTHER SURGICAL HISTORY 03/20/2022 PROCEDURE: ULTRASOUND GUIDANCE FOR VASCULAR AC OTHER SURGICAL HISTORY 04/11/2022 PROCEDURE: GA ROPRTJ > 1 MO AFTER ORIGINAL OPRATION OTHER SURGICAL HISTORY 04/11/2022 PROCEDURE: GA BYP FEM-ANT TIBL PST TIBL PRONEAL ART/OTH DSTL OTHER SURGICAL HISTORY 04/11/2022 PROCEDURE: GA EXCISION INFECTED GRAFT EXTREMITY OTHER SURGICAL HISTORY PROCEDURE: GA BYPASS W/VEIN FEMORAL-FEMORAL; COMMENT: tibial OTHER SURGICAL HISTORY 02/2020 PROCEDURE: GA ANES CARDIAC ELECTROPHYSIOL STDY W/RF ABLATION OTHER SURGICAL HISTORY 09/2014 PROCEDURE: HISTORY OTHER; COMMENT: Left common femoral endarterectomy with patch angioplasty BREAST LUMPECTOMY Right PROCEDURE: HISTORICAL BREAST LUMPECTOMY OTHER SURGICAL HISTORY 07/31/2022 Right PROCEDURE: GA RESCJ&BRONCHOPLASTY PFRMD TM LOBEC/SGMECTOMY; COMMENT: VATS (Da vinvi RML lobectomy, extensive pneumo lysis, mediastinal lymphadenectomy, bronch w aspiration, placement of On-Q) Medical History Medical History Date Comments Hypertension 08/21/2019 DX:Hypertension Hyperlipidemia 08/21/2019 DX:Hyperlipidemi a Paroxysmal atrial fibrillati on ([facility] V24, [facility] V28) 08/21/2019 DX:Paroxysmal atrial fibril lation (HCC) History of breast cancer 08/21/2019 DX:Hist ory of breast cancer; COMMENT: 2017 chemo Pacemaker 08/21/2019 DX:Pacemaker; CO MMENT: 2014 SSS Sick sinus syndrome ([facility] V24, [facility] V28) 08/21/2019 DX:Sick sinus syndrome (HCC) ; COMMENT: 2014 S/p pacemaker Acid reflux 08/21/2019 DX:Acid reflux Bilateral carotid artery stenosis 12/15/2018 DX:Bilateral carotid artery stenosis PAD (peripheral artery disea se) ([facility] V24) 12/15/2018 DX:PAD (peripheral artery di sease) ([facility]) Varicose veins of bilateral lower extremities with pain 12/15/2018 DX:Varicose veins of bilater al lower extremities with pain Ischemia of right lower extremity DX:Ischemia of right lower extremity Breast cancer ([facility] V24, [facility] V28) 07/16/2022 DX:Breast cancer (HCC) Multiple gastric [...] Sign Reading Time Taken Comments Blood Pressure 140/60 06/23/2025 3:23 PM EDT Pulse 68 06/23/2025 3:23 PM EDT Temperature - - Respiratory Rate 16 06/23/2025 3:23 PM EDT Oxygen Saturation 95% 06/22/2025 2:42 PM EDT Inhaled Oxygen Concentration - - Weight 78 kg (172 lb) 06/23/2025 3:23 PM EDT Height 165.1 cm (5' 5 ) 06/23/2025 3:23 PM EDT Body Mass Index 28.62 06/23/2025 3:23 PM EDT Plan of Treatment Upcoming Encounters Date Type Department Care Team (Late st Contact Info) Description 07/15/2025 2:00 PM EST Appointment [facility] CT Scan [address] [place] [phone] 09/22/2025 11:00 AM EST Ancillary Procedure [facility] - [address] [place] [phone] 10/11/2025 10:00 AM EST Ancillary Procedure [facility] - [facility] [address] [facility] [address] [place] [address] 06/23/2026 11:30 AM EDT Office Visit Vascular Surgery - [place] [address] [place] [address] Hui Guerra MD [address] [place] [address] Health Maintenance Due Date Last Done Comments DTaP,Tdap,and Td Vaccines (1 - Tdap) 1964 Zoster Vaccines (1 of 2) 1964 Pneumococcal Vaccine: 50+ Years (2 of 2 - PCV20 or PCV21) 11/15/2017 11/15/2016 RSV Immunization Adult Patients (1 - 1-dose 75+ series) 2021 Cholesterol Screening (Lipid Panel) 08/18/2022 Falls Risk Assessment 08/18/2022 Hepatitis C Screening 08/18/2022 Medicare Annual Wellness Visit 08/18/2022 Osteoporosis Screening (Bone Density Screening) 08/18/2022 Social Influencers of Health Screening 08/18/2022 Hypertension/CHF/CAD Annual BMP Blood Test 08/24/2022 Depression Screening 09/09/2024 COVID-19 Vaccine (4 - 2024-2 6 season) 2025 08/01/2021, 01/06/2021, 12/16/2020 Influenza Vaccine (#1) 2025 HIB Vaccines Aged [...] this topic Medical Devices Implanted Type Area Group Cio Device Identifier Shelf Expiration Date Model / Serial / Lot Medt-Card Advisa Dr Mccormick [id number] Implanted:10/11 by Francisca Blair MD (Quantity not on file) Cardiac Pacemaker Left: Chest [employer] - CARDIAC RHYTH-CRDM ADVISA DR MCCORMICK [id number] / [id number] / Procedures Procedure Name Priority Date/Time Associated Diagnosis Comments ECG 12-LEAD Routine 06/22/2025 4:12 PM EDT Sick sinus syndrome (CMS/HCC V24, CMS/HCC V28) CARDIAC DEVICE CHECK- REMOTE- MURJ Routine 06/22/2025 8:12 AM EDT VAS US DUPLEX LOWER EXT ARTERIES BILAT WITH LUIS ANGEL Routine 05/21/2025 1:46 PM EDT Peripheral venous insufficiency Peripheral vascular disease (CMS/HCC V24) CARDIAC DEVICE CHECK- REMOTE- MURJ Routine 05/20/2025 8:34 AM EDT CARDIAC DEVICE CHECK- REMOTE- MURJ Routine 04/22/2025 11:59 AM EDT from Last 3 Months Results * ECG 12 lead (06/22/2025 4:12 PM EDT) Ventricular Rate ECG 77 BPM GEMUSE Atrial Rate 625 BPM GEMUSE QRS Duration 124 ms GEMUSE Q-T Interval 398 ms GEMUSE QTc 450 ms GEMUSE R [place] 53 degrees GEMUSE T [place] 19 degrees GEMUSE ECG Interpretation Atrial-pace d rhythm Right bundle branch block Abnormal ECG When compared with ECG of 11-APR-2022 11:26, Right bundle branch block is now Present GEMUSE 06/22/2025 2:49 PM EDT us Laura GREEN ECG ORDERABLES Final Result GEMUSE * Cardiac device check - Remote- MURJ (06/22/2025 8:12 AM EDT) Only the most recent of3 resultswithin the time period is included. Date Time Interrogation Session [id number] CV DEVICE CHECK Type Interrogation Session Remote CV DEVICE CHECK Implantable Pulse Generator Group Cio MDT CV DEVICE CHECK Implantable Pulse Generator Type IPG CV DEVICE CHECK Implantable Pulse Generator Model Advisa DR MRI [id number] CV DEVICE CHECK Implantable Pulse Generator Serial Number [id number] CV DEVICE CHECK Implantable Pulse Generator Implant Date [id number] CV DEVICE CHECK Battery Remaining Longevity 1.0 CV DEVICE CHECK Battery Voltage 2.830 CV D EVICE CHECK Battery ENAMEL BURNER Trigger 2.830 CV DEVICE CHECK Battery Status Recommended Replacement Time CV DEVICE CHECK Michael Statistic RA Percent Paced 84.52 CV DEVICE CHECK Michael Statistic RV Percent Paced 0.04 CV DEVICE CHECK Atrial Tachy Statistic AT/AF [place] Percent 0.00 CV DEVICE CHECK Lead Channel Sensing Intrinsic Amplitude 3.125 CV DEVICE CHECK Lead Channel Setting Sensing Sensitivity 0.30 CV DEVICE CHECK Lead Channel Impedance Value 475 CV DEVICE CHECK Lead Channel Pacing Threshold Amplitude 1.000 CV DEVICE CHECK Lead Channel Pacing Threshold Pulse Width 0.4 CV DEVICE CHECK Lead Channel RA Pacing Threshold Date 2025-06-17 CV DEVICE CHECK Lead Channel Setting Pacing Amplitude 2.250 CV DEVICE CHECK Lead Channel Setting Pacing Pulse Width 0.4 CV DEVICE CHECK Lead Channel Sensing Intrinsic Amplitude 11.750 CV DEVICE CHECK Lead Channel Setting Sensing Sensitivity 0.90 CV DEVICE CHECK Lead Channel Impedance Value 456 CV DEVICE CHECK Lead Channel Pacing Threshold Amplitude 0.750 CV DEVICE CHECK Lead Channel Pacing Threshold Pulse Width 0.4 CV DEVICE CHECK Lead Channel RV Pacing Threshold Date 2025-06-17 CV DEVICE CHECK Lead Channel Setting Pacing [...] 6 CV DEVICE CHECK Date of Service 2025-09-10 CV DEVICE CHECK Anatomical Region Laterality Modality Device Interroga tion 06/17/2025 7:44 PM EDT Impressions 06/22/2025 8:09 AM EDT Low Battery Indicator * Low battery condition met and device replacement indicator triggered * Current battery status: ENAMEL BURNER, 1 mos * Current device battery voltage: 2.83V * Replacement Trigger: 2.83V Additional Notes: 2.83 Replace Pacemaker, 2.69 MAVIS / VVI 65. 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 CurrentlyAP 84% GLOBAL DIRECTOR AIR AND CLIMATE CHANGE ,0.1% us Laura GREEN CV IMPLANTABLE CARDIAC DEVICE GA OCEDURES Final Result * Vascular US duplex lower extremity arteries bilateral with LUIS ANGEL (05/21/2025 1:46 PM EDT) Anatomical Region Laterality Modality Vascular, Abdomen Ultrasound 06/01/2025 9:13 AM EDT Impressions 06/01/2025 10:11 AM EDT Normal bilateral ankle to brachial indices. Right leg: Patent femoral to below-knee bypass graft. Left leg: Mild diffuse atherosclerotic changes without occlusion or significant stenosis. -------- FINAL REPORT -------- Dictated By: Grisel Young Dictated Date: 06/01/2025 09:13 ET Assigned Physician: Grisel Young Reviewed and Electronically Signed By: Hector, Parshant Signed Date: 06/01/2025 10:11 ET Workstation ID: [id number] Transcribed By: Self Edit Transcribed Date: 06/01/2025 09:36 ET Narrative 06/01/2025 10:11 AM EDT INDICATION: Peripheral vascular disease TECHNIQUE: Bilateral ankle to brachial indices obtained. Arterial duplex imaging obtained of both lower extremities. Prior relevant imaging studies: April 24, 2024 Right posterior tibial index 0.95 Right dorsalis pedis index 0.90 Right digital index 0.84 Left posterior tibial index 0.91 Left dorsalis pedis index 0.91 Left digital index is noncompressible Monophasic right dorsalis pedis waveform left digital pulse volume recording. Right leg: Common femoral artery: 204 cm/s with biphasic waveform Superficial femoral artery: Occluded round [place] vessel as well as femoral popliteal bypass graft. More medially within the right dilated patent bypass graft from the common femoral artery extending to below the knee. Velocity measures 86 cm/s at the origin of the bypass graft, 72 cm/s the graft and then 81 cm/s at the distal anastomosis. Popliteal artery: Biphasic flow with velocity measuring 53 cm/s proximally and 85 cm/s distally. Posterior tibial artery: Biphasic flow with velocity measuring 98 cm/s distally. Anterior tibial artery: 53 cm/s distally. Left leg: Common femoral artery: 120 cm/s with normal waveform. Superficial femoral artery: 112 cm/s with normal waveform. Popliteal artery: Biphasic flow with velocity up to 81 cm/s. Posterior tibial artery: Biphasic flow with velocity 60 cm/s distally. Anterior tibial artery: Triphasic flow with velocity 60 cm/s distally. Procedure Note Grisel Young MD - 06/01/2025 INDICATION: Peripheral vascular disease TECHNIQUE: Bilateral ankle to brachial indices obtained. Arterial dupleximaging obtained of both lower extremities. Prior relevant imaging studies: April 24, 2024 Right posterior tibial index 0.95 Right dorsalis pedis index 0.90 Right digital index 0.84 Left posterior tibial index 0.91 Left dorsalis pedis index 0.91 Left digital index is noncompressible Monophasic right dorsalis pedis waveform left digital pulse volumerecording. Right leg: Common femoral artery: 204 cm/s with biphasic waveform Superficial femoral artery: Occluded round valley vessel as well as femoralpopliteal bypass graft. More medially within the right dilated patentbypass graft from the common femoral artery extending to below the knee.Velocity measures 86 cm/s at the origin of the bypass graft, 72 cm/s thegraft and then 81 cm/s at the distal anastomosis. Popliteal artery: Biphasic flow with velocity measuring 53 cm/s proximallyand 85 cm/s distally. Posterior tibial artery: Biphasic flow with velocity measuring 98 cm/sdistally. Anterior tibial artery: 53 cm/s distally. Left leg: Common femoral artery: 120 cm/s with normal waveform. Superficial femoral artery: 112 cm/s with normal waveform. Popliteal artery: Biphasic flow with velocity up to 81 cm/s. Posterior tibial artery: Biphasic flow with velocity 60 cm/s distally. Anterior tibial artery: Triphasic flow with velocity 60 cm/s distally. IMPRESSION: Normal bilateral ankle to brachial indices. Right leg: Patent femoral to below-knee bypass graft. Left leg: Mild diffuse atherosclerotic changes without occlusion orsignificant stenosis. -------- FINAL REPORT -------- Dictated By: Grisel Young Dictated Date: 06/01/2025 09:13 ET Assigned Physician: Grisel Young Reviewed and Electronically Signed By: Grisel Young Signed Date: 06/01/2025 10:11 ET Workstation ID: [id number] Transcribed By: Self Edit Transcribed Date: 06/01/2025 09:36 ET us Hui Guerra MD CV VASCULAR PROCEDURES Fi nal Result from Last 3 Months Insurance MEDICARE [facility] Care Teams Rehab Director Occupational Therapist Relationship Specialty Start Date End Date Joss Weinberg MD [address] [place] [address] PCP - General Internal Medicine 07/24/24
--- OUTSIDE RECORDS SUMMARY | 2025-07-05 13:59 | XMS_ITS | Encounter Summary ---
Author Organization [facility] Address [address] [place] [address] Care Team Providers Care Clinical Research Physician Name Role Phone Joss Weinberg MD Primary Care Provider [phone] Encounter Details Date Type Department Care Team (Late st Contact Info) Description 06/21/2025 Telephone [facility] - [facility] [address] [facility] [address] [place] [phone] Francisca Blair MD [address] [facility] [address] [place] [address] Social History Tobacco Use Types Packs/Day Years [...] or [place] 07/24/2024 1: 18 PM EST documented as of this encounter Progress Notes * Viola Mcintyre MA - 06/21/2025 1:21 PM EDT Device just tripped WAFER FABRICATION OPERATOR (2.83V) MAVIS (2.69) VVI 65. Patient is primarily Atrial paced so I would imagine she would be symptomatic when she flips to MAVIS VVI 65. You are already scheduled to see her tomorrow. I processed in [place] and made note in appt notes. documented in this encounter Plan of Treatment Upcoming Encounters Date Type Department Care Team (Late st Contact Info) Description 07/15/2025 2:[address] [facility] CT Scan [address] [place] [address] 09/22/2025 11:00 AM EST Ancillary Procedure [facility] - [address] [place] [address] 10/11/2025 10:00 AM EST Ancillary Procedure [facility] Cardiology [facility] - [facility] [address] [facility] [address] [place] [address] 06/23/2026 11:30 AM EDT Office Visit Vascular Surgery - [place] [address] [place] [address] Hui Guerra MD [address] [place] [phone] documented as of this encounter Visit Diagnoses Not on filedocumented in this encounter Care Teams Clinical Research Physician Relationship Specialty Start Date End Date Joss Weinberg MD [address] [place] [id number] PCP - General Internal Medicine 07/24/24 documented as of this encounter
== END 2025-07-05 11:06 | disposition home or self-care (01) ==
LOC: HO.MAMMO 11:05
PROVIDERS: PCP Internal Medicine; Visit Provider Internal Medicine
DX: Z12.31 Encounter for screening mammogram for malignant neoplasm of breast (principal)
CPT/HCPCS: 77063; 77067

== ENCOUNTER → 2025-07-05 11:15 | Outpatient (BNV) | payer MEDICARE, SELFPAY | PROVIDERS: PCP Internal Medicine; Visit Provider Internal Medicine | DX: Z12.31 Encounter for screening mammogram for malignant neoplasm of breast (principal) | CPT/HCPCS: 77063; 77067 ==